=== PATIENT | male | born 1950 | race Caucasian/White ===

== ENCOUNTER → 2023-01-20 14:34 | Outpatient (BNVA) | payer MEDICARE, SELFPAY | PROVIDERS: Visit Provider Neurological Surgery | DX: M48.062 Spinal stenosis, lumbar region with neurogenic claudication (principal) | CPT/HCPCS: 99202 ==

== ENCOUNTER → 2023-04-01 13:58 | Outpatient (BNVA) | payer MEDICARE, SELFPAY | PROVIDERS: Visit Provider Neurological Surgery | DX: Z01.810 Encounter for preprocedural cardiovascular examination (principal); M48.062 Spinal stenosis, lumbar region with neurogenic claudication | CPT/HCPCS: 99212 ==

== ENCOUNTER → 2023-04-20 13:50 | Outpatient (BNV) | payer MEDICARE, SELFPAY | PROVIDERS: PCP Internal Medicine; Visit Provider Internal Medicine Cardiovascular Disease | DX: R94.31 Abnormal electrocardiogram [ECG] [EKG] (principal) | CPT/HCPCS: 93010 ==

== ENCOUNTER 2023-04-30 06:13 | Day surgery (SDC) | payer MEDICARE, SELFPAY ==
--- NOTE | 2023-04-20 | ECG_ITS ---
Test Reason : PREOP Blood Pressure : / mmHG Vent. Rate : 075 BPM Atrial Rate : 075 BPM P-R Int : 222 ms QRS Dur : 098 ms QT Int : 342 ms P-R-T Axes : 032 024 268 degrees QTc Int : 381 ms Sinus rhythm with 1st degree A-V block ST & T wave abnormality, consider inferolateral ischemia Abnormal ECG No previous ECGs available Referred By: Lulú Carpio Electronically Signed By:ABDI CURTIS MD
[2023-04-20 12:42] VITALS: BP 134/76; PULSE 77; RESP 18; O2SAT 98; BMI 30.7
--- NOTE | 2023-04-20 12:59 | HO.ANESPROP2 ---
HPI - Anesthesia Eval Consult details Narrative: 73yo M for L 4-5 Decompression w/ Coflex, 04/30/23 Cardiac cleared. S/p CABG x 3 2020 Started ozempic ~6 weeks ago for DM and weight loss. Reviewed with Dr Rosales. OK to continue. No recent illness No CP/SOB with minimal activity d/t back pain FBS ~ 120 PMFSH Active Problems Active Problems: All Active Problems (Updated 04/20/23 @ 12:24 by Baylee Hinton RN) Lumbar stenosis with neurogenic claudication (Acute) Past Medical History Medical History Bilateral hip pain CAD (coronary artery disease) Carpal tunnel syndrome CKD (chronic kidney disease) Diabetes Habitual snoring HLD (hyperlipidemia) HTN (hypertension) Obesity, Class I, BMI 30.0-34.9 (see actual BMI) On beta yesenia at home Peripheral autonomic neuropathy Prostate cancer Sexual dysfunction, unspecified Trigger finger, right ring finger Vertigo Family History Family history of problems with anesthesia: No Surgical History Surgical History H/O colonoscopy History of carpal tunnel surgery of left wrist History of surgery on left wrist Hx of adenoidectomy Hx of CABG Hx of elbow surgery Hx of left knee surgery Hx of prostatectomy Hx of right knee surgery Hx of tonsillectomy History of Problems with Anesthesia: No Social History Social History Are you a primary direct care professional to a significant other at home: No Do you presently have visiting nurse or other home services: No Patient Tobacco Use Status: Never used Tobacco Meds Allergies Allergy/AdvReac Type Severity Reaction Status Date / Time dulaglutide [From Trulicity] Allergy Intermediate Nausea and Verified 04/30/23 06:46 Vomiting rosuvastatin [From Crestor] Allergy Muscle Pain Verified 04/30/23 06:47 simvastatin Allergy Muscle Pain Verified 04/30/23 06:47 Home Medications Medication Instructions Recorded Confirmed Last Taken Type metformin 1,000 mg tablet 1,000 mg PO BID 01/20/23 04/17/23 Unknown History aspirin 81 mg tablet,delayed 81 mg PO DAILY 04/17/23 04/17/23 Unknown History release atorvastatin 40 mg tablet 40 mg PO BEDTIME 04/17/23 04/20/23 Unknown History cholecalciferol (vitamin D3) 50 50 mcg PO DAILY 04/17/23 04/17/23 Unknown History mcg (2,000 unit) capsule (Vitamin D3) insulin degludec 100 unit/mL 40 unit subcut DAILY 04/17/23 04/20/23 Unknown History subcutaneous solution (Tresiba U-100 Insulin) metoprolol succinate 50 mg 50 mg PO DAILY 04/17/23 04/17/23 Unknown History tablet,extended release 24 hr semaglutide 0.25 mg or 0.5 mg (2 0.25 mg subcut QWEEK 04/20/23 04/20/23 Unknown History mg/3 mL) subcutaneous pen injector (Ozempic) Exam Exam Date and Time: April 20, 2023 125 Height,Weight and Vital Signs: Height 6 ft 3 in Weight 111.584 kg Last Vital Signs Pulse 77 04/20/23 12:42 Resp 18 04/20/23 12:42 BP 134/76 04/20/23 12:42 Pulse Ox 98 04/20/23 12:42 O2 Del Method Room Air 04/20/23 12:42 Pertinent Lab Results Pertinent Lab Results: Lab Results 04/20/23 04/20/23 04/20/23 Range/Units 13:48 13:48 13:48 WBC 6.9 (4.8-10.8) X10*3/uL RBC 4.44 L (4.60-5.80) X10*6/uL Hgb 13.4 L (14.0-18.0) g/dl Hct 39.9 L (42.0-52.0) % MCV 89.9 (80.0-98.0) fL MCH 30.2 (27.0-33.0) pg MCHC 33.6 (31.0-36.0) g/dl RDW 12.5 (11.0-16.0) % Plt Count 295 (160-400) X10*3/uL MPV 10.5 (9.4-12.4) fL Absolute Nucleated RBC 0.000 (0.0-0.012) X10*3/uL Nucleated RBC % (auto) 0.0 (0.0-0.2) /100WBC Sodium 137 (135-145) mmol/L Potassium 4.5 (3.3-5.1) mmol/L Chloride 104 (96-108) mmol/L Carbon Dioxide 26 (22-29) mmol/L Anion Gap 12 (12-20) BUN 19 H (9-16) mg/dL Creatinine 1.63 H (0.5-1.4) mg/dL Estim Creat Clear Calc 55.2 Estimated GFR 42 Random Glucose 170 H (60-115) mg/dL Estimat Average Glucose 151 mg/dL Hemoglobin A1c % 6.9 % Calcium 10.2 (8.4-10.2) mg/dL Narrative Narrative: EKG 03/2023 Vent. Rate : 075 BPM ? ? Atrial Rate : 075 BPM ?? P-R Int : 222 ms? QRS Dur : 098 ms ? ? QT Int : 342 ms ? ? ? P-R-T Axes : 032 024 268 degrees ?? QTc Int : 381 ms ? Sinus rhythm with 1st degree A-V block ST & T wave abnormality, consider inferolateral ischemia Abnormal ECG No previous ECGs available Airway Mallampati Class: III TM Dist: >3cm Neck ROM: Full Loose/Missing/Broken Teeth: No (molars crowned) Heart: RRR Lungs: CTAB Assessment and Plan Assessment Anesthesia Assessment: Anesthesia Plan Discussed and PAT Visit Final Anesthetic Review Family History of Problems with Anesthesia: No History of Problems with Anesthesia: No
[2023-04-20 14:06] LABS: Hematocrit 39.9 % (42.0-52.0); Hemoglobin 13.4 g/dl (14.0-18.0); Mean Corpuscular HGB Conc 33.6 g/dl (31.0-36.0); Mean Corpuscular Hemoglobin 30.2 pg (27.0-33.0); Mean Corpuscular Volume 89.9 fL (80.0-98.0); Mean Platelet Volume 10.5 fL (9.4-12.4); Platelet Count 295 X10*3/uL (160-400); Red Blood Count 4.44 X10*6/uL (4.60-5.80); Red Cell Distribution Width 12.5 % (11.0-16.0); White Blood Count 6.9 X10*3/uL (4.8-10.8)
[2023-04-20 14:36] LABS: Estimated Average Glucose 151 mg/dL; Hemoglobin A1c % 6.9 %
[2023-04-20 14:54] LABS: Anion Gap 12 (12-20); Blood Urea Nitrogen 19 mg/dL (9-16); Calcium 10.2 mg/dL (8.4-10.2); Carbon Dioxide 26 mmol/L (22-29); Chloride 104 mmol/L (96-108); Creatinine Clr Calc Pharmacy 55.2; Estimated Glomerular Filt Rate 42; Glucose Random 170 mg/dL (60-115); Potassium 4.5 mmol/L (3.3-5.1); Sodium 137 mmol/L (135-145)
[2023-04-30] VITALS (9 sets, daily range): BP systolic 130–174; BP diastolic 71–94; PULSE 67–77; RESP 14–18; TEMP 36.1–36.7; O2SAT 94–99
--- NOTE | ~2023-04-30 | FL_ITS ---
EXAMINATION: XR FLUOROSCOPY WITH IMAGES CLINICAL INFORMATION: L4-L5 decompression with Coflex. COMPARISON: None available. TECHNIQUE: Fluoroscopy Supervised By: Dr. Chema Coffey. Fluoroscopy Time: 0.0 minutes (less than 10 seconds). Cumulative Dose: 4.28 mGy. DAP: 0.807 Gy-cm2. Images: 3. FINDINGS: Initial lateral interoperative image of the lumbar spine demonstrates needle projecting over the posterior elements at the L4-L5 disc space level. 2 subsequent images demonstrate surgical hardware in between the L4 and L5 spinous processes. FL/FL guidance in OR IMPRESSION: Fluoroscopy guidance for lumbar spine procedure.
--- OUTSIDE RECORDS SUMMARY | 2023-04-30 06:14 | XMS_ITS | Continuity of Care Document ---
Author Name Unknown Organization [facility] Address [address] [place] [address]- Care Team Providers Care Vp Cardiovascular Service Line Name Role Phone Tony Hinton MD Primary Care Physician Encounter [facility] NBR [id number] Date(s): 04/23/21 - 05/23/[address] [address]- Allergies, Adverse Reactions, Alerts Substance Reaction Severity Status simvastatin muscle aches, fatigue Active Crestor muscle aches, fatigue Active Immunizations Given and Recorded Vaccine Date Status Refusal Reason influenza virus vaccine, live 07/06/14 Given pneumococcal 23-valent vaccine 1 06/14/12 Given influenza virus vaccine, inactivated 2 06/14/12 Gi stephon 1Admin Note: Vis 01/30/2010 2Admin Note: Vis 05/23/2010 Medications Aspirin 81, mg, By Mouth, Daily, 0, 0, 09/30/08 1:50:01, Print VIDYA Number, [id number], Constant Indicator Start Date: 09/30/08 Status: Ordered Humalog 100 u/ml subcutaneous injection See Instructions, Subcutaneous Injection, 15 minutes before or immediately after a meal Sliding scale 2-12 units based on blood sugars, # 20 mL, 0 Refills, Maintenance, 04/25/15 7:51:31, 15 minutes before or immediately after a meal; Sliding scale 2-... Start Date: 04/25/15 Stop Date: 05/25/15 Status: Ordered Lantus 100 u/ml subcutaneous solution = 100 units, Subcutaneous Infusion, Daily, 0 Refills, Maintenance, 07/02/20 17:36:00 EDT Start Date: 07/02/20 Status: Ordered lisinopril 20 mg oral tablet 20 mg, 1, tablet, By Mouth, Daily at bedtime, Refills 0, Maintenance, 07/02/20 17:38:00 EDT Start Date: 07/02/20 Status: Ordered metformin 1000 mg oral tablet 1 tablet = 1,000 mg, By Mouth, 2 times a day, # 180 tablet, 3 Refills, Maintenance, 04/17/14 15:45:22, 1 tablet By Mouth 2 times a day,x90 days Start Date: 04/17/14 Stop Date: 04/12/15 Status: Ordered One Touch Ultra 2 Glucose Meter See Instructions, # 1 each, Maintenance, to use to test blood sugars for dm 250.00, 09/01/14 12:25:51, Compound Start Date: 09/01/14 Status: Ordered One Touch Ultra Test Strips See Instructions, # 200 each, Refills 5, Tot. Refills 5, Maintenance, Use to test blood sugars up to 4x daily DX 250.02, 04/17/14 15:41:53 Start Date: 04/17/14 Status: Ordered One Touch UltraSoft Lancets See Instructions, # 600 each, Refills 2, Tot. Refills 2, Maintenance, Use to test blood sugar 3 to 6 times a day Dx: 250.00 IDDM, 09/13/14 9:50:53, Pt received One Touch Ultra 2 Meter, Compound Start Date: 09/13/14 Stop Date: 06/10/15 Status: Ordered Tylenol Extra Strength 500 mg oral powder 2 pack/packet, By Mouth, Every 6 hours, PRN as needed for pain, # 12 pack/packet, 0 Refills, Maintenance, 05/13/21 7:58:00 EDT, Powder, Partial fill upon patient request if the prescription is for a schedule II opioid drug. Start Date: 05/13/21 Status: Ordered Problem List Condition Effective Dates Status Health Status Inform ant Carpal Tunnel Syndrome(Confirmed) 06/14/12 Active CTS(Confirmed) Active CTS (carpal tunnel syndrome)(Confirmed) Active Peripheral Autonomic Neuropa thy 337.1(Confirmed) Active Diabetes mellitus without me ntion of complication, type II or unspecified type, not stated as uncontrolled(Confirmed) 06/14/12 Active Pain in shoulder(Confirmed) 11/03/11 Active Post-operative state(Confirmed) Active Pure Hypercholesterolemia(Confirmed) 06/14/12 Active Sexual dysfunction NOS(Confirmed) 02/02/12 Active Trigger finger of left hand 4th(Confirmed) Active Unspecified Essential Hypertension(Confirmed) 06/14/12 Active Vertigo(Confirmed) 12/03/12 Active Social History Social History Type Response Smoking Status Never smoker; Tobacc o user in household: No entered on: 04/16/15 Sex
--- OUTSIDE RECORDS SUMMARY | 2023-04-30 06:14 | XMS_ITS | Continuity of Care Document ---
Author Name Unknown Organization [facility] Address [address] [place] [address]- Care Team Providers Care Lamp Stack Developer Name Role Phone Tony Hinton MD Primary Care Physician [phone] Encounter [facility] Date(s): 03/29/21 - 04/28/[address] [address] [[email or web address] Allergies, Adverse Reactions, Alerts Substance Reaction Severity [...] 0, 0, 09/30/08 1:50:01, Print VIDYA Number, [id number], Constant Indicator Start Date: 09/30/08 Status: Ordered gabapentin 100 mg oral capsule 100 mg, 1, capsule, By Mouth, 3 times a day, # 90 capsule, Refills 0, Tot. Refills 0, Maintenance, 04/16/21 6:55:00 EDT, Route to Pharmacy Electronically, [id number], Partial fill upon patient request if the prescription is for a schedule I... Start Date: 04/16/21 Status: Ordered Humalog 100 u/ml subcutaneous injection [...] Date: 09/13/14 Stop Date: 06/10/15 Status: Ordered Problem List Condition Effective Dates [...]
--- OUTSIDE RECORDS SUMMARY | 2023-04-30 06:14 | XMS_ITS | Continuity of Care Document ---
Author Name Unknown Organization [facility] Address [address] [address]- Care Team Providers Care Practicing Dermatologist Name Role Phone Tony Hinton MD Primary Care Physician [phone] Encounter [facility] Date(s): 06/11/21 - 07/11/21 [facility] [address] [address]- Allergies, Adverse Reactions, Alerts Substance Reaction Severity Status simvastatin muscle aches, fatigue Active Crestor muscle aches, fatigue Active Immunizations Given and Recorded Vaccine Date Status Refusal Reason influenza virus vaccine, live 07/06/14 Given pneumococcal 23-valent vaccine 1 06/14/12 Given influenza virus vaccine, inactivated 2 06/14/12 Gi stephon 1Admin Note: Vis 01/30/2010 2Admin Note: Vis 05/23/2010 Medications amiodarone 200 mg oral tablet 200 mg, 1, tablet, By Mouth, 2 times a day, # 60 tablet, Refills 0, Tot. Refills 0, Maintenance, 06/23/21 13:52:00 EDT, Route to Pharmacy Electronically, [facility], Partial fill upon patient request if the prescription is for a schedule... Start Date: 06/23/21 Status: Ordered amLODIPine 10 mg oral tablet 1 tablet = 10 mg, By Mouth, Daily, # 30 tablet, 0 Refills, Maintenance, 06/23/21 13:53:00 EDT, Tablet, [facility], Partial fill upon patient request if the prescription is for a schedule II opioid drug., 190.5, cm, 06/23/21 11:57:00 EDT,... Start Date: 06/23/21 Status: Ordered Aspirin = 81 mg, By Mouth, Daily in AM, 0 Refills, 09/30/08 1:50:01 EST Start Date: 09/30/08 Status: Ordered gabapentin 100 mg oral capsule 200 mg, 2, capsule, By Mouth, Daily at bedtime, # 120 capsule, Refills 0, Maintenance, 06/06/21 12:13:00 EDT, Partial fill upon patient request if the prescription is for a schedule II opioid drug. Start Date: 06/06/21 Status: Ordered Humalog 100 u/ml subcutaneous injection [...] subcutaneous solution = 100 units, Subcutaneous Infusion, Daily in AM, 0 Refills, Maintenance, 07/02/20 17:36:00 EDT Start Date: 07/02/20 Status: Ordered metformin [...] Date: 09/13/14 Stop Date: 06/10/15 Status: Ordered senna 25 mg oral tablet 2 tablet = 50 mg, By Mouth, 2 times a day, 0 Refills, Maintenance, 06/06/21 11:43:00 EDT, Partial fill upon patient request if the prescription is for a schedule II opioid drug. Start Date: 06/06/21 Status: Ordered Problem List Condition Effective Dates [...]
--- OUTSIDE RECORDS SUMMARY | 2023-04-30 06:14 | XMS_ITS | Continuity of Care Document ---
Author Name Unknown Organization [facility] Address [address] [place] [address]- Care Team Providers Care Early Intervention Specialist Name Role Phone Tony Hinton MD Primary Care Physician Encounter [facility] Date(s): 10/03/22 - 11/02/[address] [id number] Allergies, Adverse Reactions, Alerts Substance Reaction Severity Status simvastatin muscle aches, fatigue Active Crestor muscle aches, fatigue Active Immunizations Given and Recorded Vaccine Date Status Refusal Reason influenza virus vaccine, live 07/06/14 Given pneumococcal 23-valent vaccine 1 06/14/12 Given influenza virus vaccine, inactivated 2 06/14/12 Gi stephon 1Admin Note: Vis 01/30/2010 2Admin Note: Vis 05/23/2010 Medications Aspirin = 81 mg, By Mouth, Daily in AM, 0 Refills, 09/30/08 1:50:01 EST Start Date: 09/30/08 Status: Ordered atorvastatin 40 mg oral tablet 1 tablet = 40 mg, By Mouth, Daily, # 90 tablet, 3 Refills, Maintenance, 04/09/21 12:13:00 EDT, Tablet, [facility], Partial fill upon patient request if the prescription is for a schedule II opioid drug., 191, cm, 04/09/21 11:40:... Start Date: 04/09/21 Status: Ordered lisinopril 5 mg oral tablet 5 mg, 1, tablet, By Mouth, Daily, # 90 tablet, Refills 3, Tot. Refills 3, Maintenance, 09/08/22 15:10:00 EST, Route to Pharmacy Electronically, [facility], Partial fill upon patient request if the prescription is for a schedule... Start Date: 09/08/22 Stop Date: 09/03/23 Status: Ordered lisinopril 5 mg oral tablet 5 mg, 1, tablet, By Mouth, Daily, for 90 days, # 90 tablet, Refills 3, Tot. Refills 3, Hard Stop 08/22/23 9:20:00 EST, 08/27/22 9:20:00 EST, Route to Pharmacy Electronically, [id number], Partial fill upon patient request if the prescription... Start Date: 08/27/22 Stop Date: 08/22/23 Status: Ordered metformin 1000 mg oral tablet 1 tablet = 1,000 mg, By Mouth, 2 times a day, # 180 tablet, 3 Refills, Maintenance, 04/17/14 15:45:22, 1 tablet By Mouth 2 times a day,x90 days Start Date: 04/17/14 Stop Date: 04/12/15 Status: Ordered metoprolol 50 mg oral tablet, extended release 50 mg, 1, tablet, By Mouth, Daily, # 90 tablet, Refills 3, Tot. Refills 3, Maintenance, 10/23/22 12:51:00 EST, Route to Pharmacy Electronically, [facility], Partial fill upon patient request if the prescription is for a schedule... Start Date: 10/23/22 Status: Ordered NovoLOG 100 units/mL injectable solution Subcutaneous Infusion, 3 times a day before meals, sliding scale as instructed by Dr Hinton pcp, 0 Refills, Maintenance, 08/05/21 15:24:00 EST, Partial fill upon patient request if the prescriptionis for a schedule II opioid drug. Start Date: 08/05/21 Status: Ordered One Touch Ultra 2 Glucose [...] opioid drug. Start Date: 06/06/21 Status: Ordered Tresiba 100 units/mL subcutaneous solution Subcutaneous Infusion, Daily, 40 units in the am, 0 Refills, Maintenance, 08/05/21 15:23:00 EST, Partial fill upon patient request if the prescription is for a schedule II opioid drug. Start Date: 08/05/21 Status: Ordered Problem List Condition Confirmation Course Effective Dates Status Health Status Informant Carpal Tunnel Syndrome Confirmed 06/14/12 Active CTS Confirmed Active CTS (carpal tunnel syndrome) Confirmed Active Peripheral Autonomic Neuropathy 337.1 Confirmed Active Diabetes mellitus without mention of complication, type II or unspecified type, not stated as uncontrolled Confirmed 06/14/12 Active Bilateral hip pain Confirmed Active Obese class I Confirmed Active Pain in shoulder Confirmed 11/03/11 Active Post-operative state Confirmed Active Pure Hypercholesterolemia Confirmed 06/14/12 Active Sexual dysfunction NOS Confirmed 02/02/12 Active Trigger finger of left hand 4th Confirmed Active Unspecified Essential Hypertension Confirmed 06/14/12 Active Vertigo Confirmed 12/03/12 Active Social History Social History Type Response Smoking Status Never smoker; Tobacc o user in household: No entered on: 04/16/15 Sex Patient Care team information Care Team Personnel Name: Carolina Shore RN Position: S RN Member Role: Primary Care Nurse Name: Tony Hinton MD Position: S Physician (General Medicine) Member Role: PCP Address: Address: [address] [place] [id number] Name: Ese Whaley RN Position: S RN Supv Member Role: Primary Care Nurse Name: Meenakshi Baca RN Position: S RN Supv Member Role: Primary Care Nurse Name: Opal Obrien RN Position: S RN Member Role: Primary Care Nurse Name: Paris Sanchez RN Position: [facility] RN Supv Member Role: Primary Care Nurse Name: Estephania Ruvalcaba Position: [facility] Outreach Member Role: Lifetime Consulting Physician Name: Lulú Hewitt RN Position: [facility] RN Member Role: Primary Care Nurse Name: Poornima Sanchez RN Position: [facility] RN Member Role: Primary Care Nurse Care Team Related Persons Name: MIC GREEN Address: [address] [address]
--- OUTSIDE RECORDS SUMMARY | 2023-04-30 06:14 | XMS_ITS | Continuity of Care Document ---
Author Name Unknown Organization [facility] [place] Address [address] [place] [address]- Care Team Providers Care Banking Consultant Name Role Phone Tony Hinton MD Primary Care Physician Encounter [facility] N[facility] [id number] Date(s): 08/19/21 - 09/18/[address] [address]- Attending Physician: Keli Chambers Admitting Physician: Keli Chambers Referring Physician: AdmtrKeli Allergies, Adverse Reactions, Alerts Substance Reaction Severity [...] 1:50:01 EST Start Date: 09/30/08 Status: Ordered metformin 1000 mg oral tablet [...]
--- OUTSIDE RECORDS SUMMARY | 2023-04-30 06:14 | XMS_ITS | Continuity of Care Document ---
Author Name Unknown Organization [facility] Address [address] [place] [address]- Care Team Providers Care Senior Software Developer Name Role Phone Tony Hinton MD Primary Care Physician Encounter [facility] Date(s): 05/08/21 - 06/07/[address] [address] Allergies, Adverse Reactions, Alerts Substance Reaction [...] Date: 04/17/14 Stop Date: 04/12/15 Status: Ordered nitroglycerin 0.4 mg sublingual tablet 1 tablet = 0.4 mg, Sublingual, Every 5 minutes, PRN as needed for chest pain, not to exceed 3 doses/15 min--if pain persists, seek medical attention, # 25 tablet, 0 Refills, Maintenance, 06/06/21 11:58:00 EDT, Tablet, Partial fill upon patient request... Start Date: 06/06/21 Status: Ordered One Touch Ultra 2 Glucose [...] opioid drug. Start Date: 06/06/21 Status: Ordered Tylenol Extra Strength 500 mg [...]
--- OUTSIDE RECORDS SUMMARY | 2023-04-30 06:14 | XMS_ITS | Continuity of Care Document ---
Author Name Unknown Organization [facility] Address [address] [place] [address]- Care Team Providers Care Culinary Director Name Role Phone Tony Hinton MD Primary Care Physician [phone] Encounter [facility] NBR [id number] Date(s): 04/15/21 - 04/16/[address] [address]- Discharge Disposition: A-D/C Walkout Attending Physician: Doug Garza MD Admitting Physician: Doug Garza MD Referring Physician: Not on Staff, Referring MD Allergies, Adverse Reactions, Alerts Substance Reaction Severity Status simvastatin muscle aches, fatigue Active Crestor muscle aches, fatigue Active Immunizations Given and Recorded Vaccine Date Status Refusal Reason influenza virus vaccine, live 07/06/14 Given pneumococcal 23-valent vaccine 1 06/14/12 Given influenza virus vaccine, inactivated 2 06/14/12 Gi stephon 1Admin Note: Vis 01/30/2010 2Admin Note: Vis 05/23/2010 Medications acetaminophen 500 mg oral tablet 2 tablet = 1,000 mg, By Mouth, Every 6 hours, PRN for pain, for 10 days, # 100 tablet, 0 Refills, Acute 04/26/21 6:55:00 EDT, 04/16/21 6:55:00 EDT, Tablet, [facility], Partial fill upon patient request if the prescription is for a schedule... Start Date: 04/16/21 Stop Date: 04/26/21 Status: Ordered Aspirin 81, mg, By Mouth, Daily, 0, 0, 09/30/08 1:50:01, Print VIDYA Number, [id number], Constant Indicator Start Date: 09/30/08 Status: Ordered gabapentin 100 mg oral capsule 100 mg, 1, capsule, By Mouth, 3 times a day, # 90 capsule, Refills 0, Tot. Refills 0, Maintenance, 04/16/21 6:55:00 EDT, Route to Pharmacy Electronically, [facility], Partial fill upon patient request if the [...] Date: 04/25/15 Stop Date: 05/25/15 Status: Ordered ibuprofen 600 mg oral tablet 600 mg, 1, tablet, By Mouth, Every 8 hours, PRN, for 10 days, # 50 tablet, Refills 0, Tot. Refills 0, Acute 04/26/21 6:55:00 EDT, as needed for pain, 04/16/21 6:55:00 EDT, Route to Pharmacy Electronically, [facility], Partial fill upon sil... Start Date: 04/16/21 Stop Date: 04/26/21 Status: Ordered Lantus 100 u/ml subcutaneous solution = 100 units, Subcutaneous Infusion, Daily, 0 Refills, Maintenance, 07/02/20 17:36:00 EDT Start Date: 07/02/20 Status: Ordered lidocaine 5% topical cream 1 application, Topically, 3 times a day, for 5 days, # 30 Gm, 0 Refills, Acute 04/21/21 6:55:00 EDT, 04/16/21 6:55:00 EDT, Cream, [facility], Partial fill upon patient request if the prescription is for a schedule II opioid drug., 1 applica... Start Date: 04/16/21 Stop Date: 04/21/21 Status: Ordered lisinopril 20 mg oral tablet [...] Date: 09/13/14 Stop Date: 06/10/15 Status: Ordered oxyCODONE 5 mg oral tablet 5 mg, 1, tablet, By Mouth, Every 6 hours, PRN, for 3 days, # 10 tablet, Refills 0, Tot. Refills 0, Acute 04/19/21 6:55:00 EDT, as needed for pain, 04/16/21 6:55:00 EDT, Route to Pharmacy Electronically, [facility], Partial fill upon patient... Start Date: 04/16/21 Stop Date: 04/19/21 Status: Ordered Problem List Condition Effective Dates [...] Essential Hypertension(Confirmed) 06/14/12 Active Vertigo(Confirmed) 12/03/12 Active Results Radiology Reports * Exam Date Time Procedure Performing Provider Status 04/15/21 9:53 PM Ribs W/ PA Chest Left Anu Osuna; Ximena cox south (Verified) Notes: (Ribs W/ PA Chest Left) Reason For Exam: Pain RESULT: Ribs W/ PA Chest Left Ribs W/ PA Chest Left Hx of Present Illness: slipped and fell landing on left side. Now with left sided chest pain.; Reason: Pain; Clinical Question(s): Fracture COMPARISON: None PA view of chest along with 4 views of the left ribs FINDINGS: LINES AND TUBES: None. LUNGS AND PLEURA: Lung volumes are low with minor atelectatic changes at the lung bases. No effusion or pneumothorax. HEART, MEDIASTINUM AND ROBERT: Normal. BONES: There are nondisplaced fractures of the left fourth and fifth ribs seen along their lateral aspectsonly on a single view. SOFT TISSUES: Normal. IMPRESSION: Nondisplaced fractures of the left lateral fourth and fifth ribs seen only on one view. No pneumothorax or other acute intrathoracic pathology. Low lung volumes with atelectatic changes at the lung bases. WSN: [id number] Ordering Physician: Carola Lemons Dictated By: Santo Samayoa MD Dictated Date/Time: 04/15/21 10:08 p Reviewed By: Santo Samayoa MD Signed By: Santo Samayoa MD Signed Date/Time: 04/15/21 10:08 pm Transcribed By: TASNEEM Transcribed Date/Time: 04/15/21 10:05 pm Vital Signs Most recent to oldest [Reference Range]: 1 Height 191 cm (04/15/21 9:23 PM) Weight 111.9 kg (04/15/21 9:23 PM) Oxygen Saturation [94-100 %] 100 % (04/15/21 9:23 PM) Pulse Rate [55-90 bpm] 76 bpm (04/15/21 9:23 PM) Blood Pressure [90-138/55-84 mm Hg] 174/ 65mm Hg *H* (04/15/21 9:23 PM) Respiratory Rate [16-30 br/min] 20 br/mi n (04/15/21 9:23 PM) Temperature [96.8-100.4 DegF] 97.8 DegF (04/15/21 9:23 PM) Mode of Delivery (Oxygen) Room air (04/15/21 9:23 PM) Blood pressure sites Arm, right (04/15/21 9:23 PM) Temperature Route Temporal (04/15/21 9:23 PM) Dry Weight 111.9 kg (04/15/21 9:23 PM) Weight Obtained Via Standing scale (04/15/21 9:23 PM) Dry Weight Obtained Via 97.8 (04/15/21 9:23 PM) Social History Social History Type Response Smoking Status Never smoker; Tobacc o user in household: No entered on: 04/16/15 Sex
--- OUTSIDE RECORDS SUMMARY | 2023-04-30 06:14 | XMS_ITS | Continuity of Care Document ---
Author Name Unknown Organization [facility] Address [address] [place] [address]- Care Team Providers Care Park Naturalist Name Role Phone Tony Hinton MD Primary Care Physician Encounter [facility] Date(s): 05/13/21 - 05/13/[address] [address] Discharge Disposition: A-D/C Home Attending Physician: Iftikhar Chao MD Admitting Physician: Iftikhar Chao MD Referring Physician: Iftikhar Chao MD Allergies, Adverse Reactions, Alerts Substance Reaction [...] 0, 0, 09/30/08 1:50:01, Print VIDYA Number, [id number], Constant Indicator Start Date: 09/30/08 Status: Ordered [...] Essential Hypertension(Confirmed) 06/14/12 Active Vertigo(Confirmed) 12/03/12 Active Vital Signs Most recent to oldest [Reference Range]: 1 2 3 Height 190.5 cm (05/13/21 8:55 AM) 190.5 cm (05/13/21 8:48 AM) Weight 113 kg (05/13/21 8:55 AM) 113 kg (05/13/21 8:48 AM) Oxygen Saturation [94-100 %] 99 % (05/13/21 1:45 PM) 98 % (05/13/21 1:30 PM) 99 % (05/13/21 1:00 PM) Pulse Rate [55-90 bpm] 64 bpm (05/13/21 8:55 AM) Body Mass Index [18.5-24.99] 31.14 *>HHI* (05/13/21 8:55 AM) Blood Pressure [90-138/55-84 mm Hg] 159/67mm Hg *H* (05/13/21 1:45 PM) 148/59mm Hg *H* (05/13/21 1:30 PM) 138/69mm Hg (05/13/21 1:00 PM) Respiratory Rate [16-30 br/min] 20 br/min (05/13/21 1:45 PM) 19 br/min (05/13/21 1:30 PM) 22 br/min (05/13/21 1:00 PM) Temperature [96.8-100.4 DegF] 98.3 DegF (05/13/21 11:30 AM) 98.0 DegF (05/13/21 8:55 AM) Mode of Delivery (Oxygen) Room air (05/13/21 8:55 AM) Blood pressure sites Arm, left (05/13/21 1:45 PM) Arm, left (05/13/21 1:30 PM) Arm, left (05/13/21 1:00 PM) Temperature Route Temporal (05/13/21 8:55 AM) Weight Obtained Via Standing scale (05/13/21 8:55 AM) Social History Social History Type Response Smoking Status Never smoker; Tobacc o user in household: No entered on: 04/16/15 Sex
--- OUTSIDE RECORDS SUMMARY | 2023-04-30 06:14 | XMS_ITS | Continuity of Care Document ---
Author Name Unknown Organization [facility] Address [address] [place] [address]- Care Team Providers Care Track Broom Operator Name Role Phone Tony Hinton MD Primary Care Physician [phone] Encounter [facility] NBR [id number] Date(s): 02/28/22 - 06/22/[address] [address] Attending Physician: Brittnee Alfaro NP Referring Physician: Tony Hinton MD Allergies, Adverse Reactions, Alerts Substance Reaction [...] 3 Refills, Maintenance, 04/09/21 12:13:00 EDT, Tablet, [facility], Partial fill upon patient request if the prescription is for a schedule II opioid drug., 191, cm, 04/09/21 11:40:... Start Date: 04/09/21 Status: Ordered clopidogrel 75 mg oral tablet 75 mg, 1, tablet, By Mouth, Daily, # 90 tablet, Refills 3, Tot. Refills 3, Maintenance, 08/19/21 10:23:00 EST, Route to Pharmacy Electronically, [facility], Partial fill upon patient request if the prescription is for a schedule... Start Date: 08/19/21 Status: Ordered lisinopril 5 mg oral tablet 5 mg, 1, tablet, By Mouth, Daily, # 90 tablet, Refills 3, Tot. Refills 3, Maintenance, 11/06/21 16:51:00 EST, Route to Pharmacy Electronically, [facility], Partial fill upon patient request if the prescription is for a schedule... Start Date: 11/06/21 Stop Date: 11/01/22 Status: Ordered metformin 1000 mg oral tablet 1 tablet = 1,000 mg, By Mouth, 2 times a day, # 180 tablet, 3 Refills, Maintenance, 04/17/14 15:45:22, 1 tablet By Mouth 2 times a day,x90 days Start Date: 04/17/14 Stop Date: 04/12/15 Status: Ordered metoprolol 50 mg oral tablet 50 mg, 1, tablet, By Mouth, 2 times a day, # 90 tablet, Refills 6, Tot. Refills 6, Maintenance, 09/23/21 16:56:00 EST, Route to Pharmacy Electronically, [facility] 0341, Partial fill upon patient request if the prescription is for a schedule II... 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 Diabetes mellitus without me ntion of complication, type II or unspecified type, not stated as uncontrolled(Confirmed) 06/14/12 Active Obese class I(Confirmed) Active Pain in shoulder(Confirmed) 11/03/11 Active Post-operative state(Confirmed) Active Pure Hypercholesterolemia(Confirmed) 06/14/12 Active Sexual dysfunction NOS(Confirmed) 02/02/12 Active Trigger finger of left hand 4th(Confirmed) Active Unspecified Essential Hypertension(Confirmed) 06/14/12 Active Vertigo(Confirmed) 12/03/12 Active Social History Social History Type Response Smoking Status Never smoker; Tobacc o user in household: No entered on: 04/16/15 Sex Care Team Personnel Name: Tony Hinton MD Address: [address] [place] [address]
--- OUTSIDE RECORDS SUMMARY | 2023-04-30 06:14 | XMS_ITS | Continuity of Care Document ---
Author Name Unknown Organization [facility] Address [address] [place] [address]- Care Team Providers Care Golf Technician Name Role Phone Tony Hinton MD Primary Care Physician Encounter [facility] Date(s): 06/13/21 - 07/13/21 [facility] [address] [place], [place] [address] Attending Physician: Admtr, Keli Admitting Physician: AdmtrKeli Referring Physician: Admtr, Ar8 Allergies, Adverse Reactions, Alerts Substance Reaction Severity [...] 06/23/21 13:52:00 EDT, Route to Pharmacy Electronically, [facility], Partial fill upon patient request if the prescription is for a schedule... Start Date: 06/23/21 Status: Ordered amLODIPine 10 mg oral tablet 1 tablet = 10 mg, By Mouth, Daily, # 30 tablet, 0 Refills, Maintenance, 06/23/21 13:53:00 EDT, Tablet, [facility], Partial fill upon patient request [...]
--- OUTSIDE RECORDS SUMMARY | 2023-04-30 06:15 | XMS_ITS | Continuity of Care Document ---
Author Name Unknown Organization [facility] Address [address] [address]- Care Team Providers Care Account Resolution Expert Name Role Phone Tony Hinton MD Primary Care Physician [phone] Encounter [facility] Date(s): 07/05/21 - 08/04/21 [facility] [address] [address]- Allergies, Adverse Reactions, Alerts Substance Reaction Severity [...] 06/23/21 13:52:00 EDT, Route to Pharmacy Electronically, [facility], Partial fill upon patient request if the prescription is for a schedule... Start Date: 06/23/21 Status: Ordered amLODIPine 10 mg oral tablet 1 tablet = 10 mg, By Mouth, Daily, # 30 tablet, 0 Refills, Maintenance, 06/23/21 13:53:00 EDT, Tablet, [facility], Partial fill upon patient [...]
--- OUTSIDE RECORDS SUMMARY | 2023-04-30 06:15 | XMS_ITS | Continuity of Care Document ---
Author Name Unknown Organization [facility] Address [address] [address]- Care Team Providers Care Bookkeeper Receptionist Name Role Phone Tony Hinton MD Primary Care Physician Encounter [facility] Date(s): 05/16/21 - 06/15/21 [facility] [address] [address] Attending Physician: Keli Chambers Admitting Physician: Keli Chambers Referring Physician: Keli Chambers Allergies, Adverse Reactions, Alerts Substance Reaction Severity [...]
--- OUTSIDE RECORDS SUMMARY | 2023-04-30 06:15 | XMS_ITS | Continuity of Care Document ---
Author Name Unknown Organization [facility] [place] Address [address] [place] [address]- Care Team Providers Care Clam Sorter Name Role Phone Tony Hinton MD Primary Care Physician Encounter [facility] NBR [id number] Date(s): 06/24/21 - 09/18/[address] [address]- Attending Physician: Meryl MORGAN, Frankie Christianson Referring Physician: Krishna Willett MD Allergies, Adverse Reactions, Alerts Substance Reaction [...]
--- OUTSIDE RECORDS SUMMARY | 2023-04-30 06:15 | XMS_ITS | Continuity of Care Document ---
Author Name Unknown Organization [facility] [place] Address [address] [place] [address]- Care Team Providers Care Dry Kiln Feeder Name Role Phone Tony Hinton MD Primary Care Physician [phone] [facility] [id number] Date(s): 06/25/21 - 08/30/[address] [address]- Attending Physician: Meryl MORGAN, Frankie Christianson Referring Physician: Tony Hinton MD Allergies, Adverse [...]
--- OUTSIDE RECORDS SUMMARY | 2023-04-30 06:15 | XMS_ITS | Continuity of Care Document ---
Author Name Unknown Organization [facility] Address [address] [place] [address]- Care Team Providers Care Snout Puller Name Role Phone Tony Hinton MD Primary Care Physician Encounter [facility] Date(s): 02/03/22 - 03/05/[address] [address] Allergies, Adverse Reactions, Alerts Substance Reaction [...]
--- OUTSIDE RECORDS SUMMARY | 2023-04-30 06:15 | XMS_ITS | Continuity of Care Document ---
Author Name Unknown Organization [facility] Address [address] [place] [address]- Care Team Providers Care Gas Leak Inspector Name Role Phone Tony Hinton MD Primary Care Physician Encounter [facility] NBR [id number] Date(s): 01/19/23 - 04/08/[address] [address] Attending Physician: Brittnee Alfaro NP Referring Physician: [...] 3 Refills, Maintenance, 04/09/21 12:13:00 EDT, Tablet, [facility], Partial fill upon patient request if the prescription is for a schedule II opioid drug., 191, cm, 04/09/21 11:40:... Start Date: 04/09/21 Status: Ordered isosorbide mononitrate 60 mg oral tablet, extended release 1 tablet = 60 mg, By Mouth, Daily in AM, # 90 tablet, 0 Refills, Maintenance, 03/02/23 15:07:00 EDT, ER Tablet, [facility] 2386, Partial fill upon patient request if the prescription is for a schedule II opioid drug., 190.5, cm, 03/02/23 14:42:0... Start Date: 03/02/23 Status: Ordered lisinopril 5 mg oral tablet 5 mg, 1, tablet, By Mouth, Daily, # 90 tablet, Refills 3, Tot. Refills 3, Maintenance, 09/08/22 15:10:00 EST, Route to Pharmacy Electronically, [facility], Partial fill upon patient request if the prescription is for a schedule... Start Date: 09/08/22 Stop Date: 09/03/23 Status: Ordered metformin 1000 mg oral tablet [...] 10/23/22 12:51:00 EST, Route to Pharmacy Electronically, [facility], Partial fill upon patient request [...] opioid drug. Start Date: 08/05/21 Status: Ordered Vitamin D3 2000 intl units oral capsule 1 capsule = 50 mcg, By Mouth, Daily, # 30 capsule, 5 Refills, Maintenance, 01/26/23 9:26:00 EDT, Capsule, [facility] 2388, Partial fill upon patient request if the prescription is for a schedule II opioid drug., 190.5, cm, 01/23/23 10:58:00 EDT,... Start Date: 01/26/23 Status: Ordered Problem List Condition Confirmation Course [...] Care team information Care Team Personnel Name: Tony Hinton MD Position: [facility] Physician - Pediatrics Member Role: PCP Address: Address: [address] [place] [address]- Name: Ese Whaley RN Position: [facility] RN Supv Member Role: Primary Care Nurse Name: Meenakshi Baca RN Position: [facility] RN Supv Member Role: Primary Care Nurse Name: Opal Obrien RN Position: [facility] RN Member Role: Primary Care Nurse Name: Paris Sanchez RN Position: [facility] RN Supv Member Role: Primary Care Nurse Name: Estephania Ruvalcaba Position: [facility] Outreach Member Role: Lifetime Consulting Physician Name: Lulú Hewitt RN Position: [facility] RN Member Role: Primary Care Nurse Name: Poornima Sanchez RN Position: [facility] RN Member Role: Primary Care Nurse Care Team Related Persons Name: MIC GREEN Address: [address] [address]
--- OUTSIDE RECORDS SUMMARY | 2023-04-30 06:15 | XMS_ITS | Continuity of Care Document ---
Author Name Unknown Organization [facility] Address [address] [address]- Care Team Providers Care Microstrategy Architect Name Role Phone Jamaal MORGAN, Tony Primary Care Physician Encounter [facility] Date(s): 07/03/21 - 07/10/21 [facility] [address] [address]- Attending Physician: Krishna Willett MD Referring Physician: Meryl MORGAN, Frankie Christianson Allergies, Adverse Reactions, Alerts Substance Reaction Severity [...] 06/23/21 13:52:00 EDT, Route to Pharmacy Electronically, [facility], Partial fill upon patient request if the prescription is for a schedule... Start Date: 06/23/21 Status: Ordered amLODIPine 10 mg oral tablet 1 tablet = 10 mg, By Mouth, Daily, # 30 tablet, 0 Refills, Maintenance, 06/23/21 13:53:00 EDT, Tablet, [facility], Partial fill upon patient request if the prescription is for a schedule II opioid drug., 190.5, cm, 06/23/21 11:57:00 EDT,... Start Date: 06/23/21 Status: Ordered Aspirin = 81 mg, By Mouth, Daily in AM, 0 Refills, 09/30/08 1:50:01 EST Start Date: 09/30/08 Status: Ordered clopidogrel 75 mg oral tablet 75 mg, 1, tablet, By Mouth, Daily, # 30 tablet, Refills 0, Tot. Refills 0, Maintenance, 06/23/21 13:52:00 EDT, Route to Pharmacy Electronically, [facility], Partial fill upon patient request if the prescription is for a schedule II opioi... Start Date: 06/23/21 Status: Ordered gabapentin 100 mg oral capsule [...] Status: Ordered metoprolol 50 mg oral tablet 25 mg, 0.5, tablet, By Mouth, 2 times a day, # 60 tablet, Refills 0, Tot. Refills 0, Maintenance, 06/23/21 13:52:00 EDT, Route to Pharmacy Electronically, [facility] 3, Partial fill upon patient request if the prescription is for a schedul... Start Date: 06/23/21 Status: Ordered One Touch Ultra 2 Glucose [...] recent to oldest [Reference Range]: 1 Height 190.50 cm (07/03/21 9:11 AM) Weight 103.6 kg (07/03/21 9:11 AM) Oxygen Saturation [94-100 %] 99 % (07/03/21 9:11 AM) Pulse Rate [55-90 bpm] 74 bpm (07/03/21 9:11 AM) Body Mass Index [18.5-24.99] 28.55 *H* (07/03/21 9:11 AM) Blood Pressure [90-138/55-84 mm Hg] 108/ 62mm Hg (07/03/21 9:11 AM) Respiratory Rate [16-30 br/min] 18 br/mi n (07/03/21 9:11 AM) Temperature [96.8-100.4 DegF] 98.2 DegF (07/03/21 9:11 AM) Mode of Delivery (Oxygen) Room air (07/03/21 9:11 AM) Blood pressure sites Arm, right (07/03/21 9:11 AM) Temperature Route Oral (07/03/21 9:11 AM) Weight Obtained Via Patient/family state d (07/03/21 9:11 AM) Social History Social History Type Response Smoking Status Never smoker; Tobacc o user in household: No entered on: 04/16/15 Sex
--- OUTSIDE RECORDS SUMMARY | 2023-04-30 06:15 | XMS_ITS | Continuity of Care Document ---
Author Name Unknown Organization [facility] Address [address] [address]- Care Team Providers Care Taxicab Dispatcher Name Role Phone Tony Hinton MD Primary Care Physician Encounter [facility] Date(s): 06/12/21 - 07/12/21 [facility] [address] [address]- Allergies, Adverse Reactions, Alerts Substance Reaction Severity [...] 06/23/21 13:52:00 EDT, Route to Pharmacy Electronically, [facility], Partial fill upon patient request if the prescription is for a schedule... Start Date: 06/23/21 Status: Ordered amLODIPine 10 mg oral tablet 1 tablet = 10 mg, By Mouth, Daily, # 30 tablet, 0 Refills, Maintenance, 06/23/21 13:53:00 EDT, Tablet, [facility], Partial fill upon patient [...]
--- OUTSIDE RECORDS SUMMARY | 2023-04-30 06:15 | XMS_ITS | Continuity of Care Document ---
Author Name Unknown Organization [facility] Address [address] [place] [address]- Care Team Providers Care Chip Bin Operator Name Role Phone Tony Hinton MD Primary Care Physician Encounter [facility] Date(s): 06/24/21 - 07/24/[address] [address] Allergies, Adverse Reactions, Alerts Substance Reaction [...] 06/23/21 13:52:00 EDT, Route to Pharmacy Electronically, [facility], Partial fill upon patient request if the prescription is for a schedule... Start Date: 06/23/21 Status: Ordered amLODIPine 10 mg oral tablet 1 tablet = 10 mg, By Mouth, Daily, # 30 tablet, 0 Refills, Maintenance, 06/23/21 13:53:00 EDT, Tablet, [facility], Partial fill upon patient [...]
--- OUTSIDE RECORDS SUMMARY | 2023-04-30 06:15 | XMS_ITS | Continuity of Care Document ---
Author Name Unknown Organization [facility] Address [address] [address]- Care Team Providers Care Technician Helper Instrument Name Role Phone Tony Hinton MD Primary Care Physician Encounter [facility] Date(s): 06/11/21 - 07/11/21 [facility] [address] [address]- Allergies, Adverse Reactions, Alerts Substance Reaction Severity [...] 06/23/21 13:52:00 EDT, Route to Pharmacy Electronically, [facility], Partial fill upon patient request if the prescription is for a schedule... Start Date: 06/23/21 Status: Ordered amLODIPine 10 mg oral tablet 1 tablet = 10 mg, By Mouth, Daily, # 30 tablet, 0 Refills, Maintenance, 06/23/21 13:53:00 EDT, Tablet, [facility], Partial fill upon patient [...]
--- OUTSIDE RECORDS SUMMARY | 2023-04-30 06:15 | XMS_ITS | Continuity of Care Document ---
Author Name Unknown Organization [facility] Address [address] [address]- Care Team Providers Care Loan Manager Name Role Phone Tony Hinton MD Primary Care Physician [phone] Encounter [facility] Date(s): 02/28/22 - 03/30/22 [place] [id number] [address]- Attending Physician: Keli Chambers Admitting Physician: Keli [...]
--- OUTSIDE RECORDS SUMMARY | 2023-04-30 06:15 | XMS_ITS | Continuity of Care Document ---
Author Name Unknown Organization [facility] Address [address] [address]- Care Team Providers Care Sanitary Inspector Name Role Phone Tony Hinton MD Primary Care Physician Encounter [facility] Date(s): 01/16/23 - 02/15/[address] [address] [place] Allergies, Adverse Reactions, Alerts Substance Reaction Severity [...] 08/27/22 9:20:00 EST, Route to Pharmacy Electronically, [facility], Partial fill upon patient request if the [...] 5 Refills, Maintenance, 01/26/23 9:26:00 EDT, Capsule, [facility], Partial fill upon patient request if the [...] Team Personnel Name: Tony Hinton MD Position: [facility] Outreach Member Role: PCP Address: Address: [address] [place], [place] [address], [place] [address]- Name: Ese Whaley RN Position: S RN Supv Member Role: Primary Care Nurse Name: Meenakshi Baca RN Position: S RN Supv Member Role: Primary Care Nurse Name: Opal Obrien RN Position: S RN Member Role: Primary Care Nurse Name: Paris Sanchez RN Position: [facility] RN Supv Member Role: Primary Care Nurse Name: Estephania Ruvalcaba Position: [facility] Outreach Member Role: Lifetime Consulting Physician Name: Lulú Hewitt RN Position: [facility] RN Member Role: Primary Care Nurse Name: Poornima Sanchez RN Position: [facility] RN Member Role: Primary Care Nurse Care Team Related Persons Name: MIC GREEN Address: [address] [address]
--- OUTSIDE RECORDS SUMMARY | 2023-04-30 06:15 | XMS_ITS | Continuity of Care Document ---
Author Name Unknown Organization [facility] ter Address [address] [place] [address]- Care Team Providers Care Sludge Control Attendant Name Role Phone Tony Hinton MD Primary Care Physician [phone] [id number] Date[facility] 06/17/21 - 06/23/[address] [address] Discharge Disposition: A-D/C Home Attending Physician: Krishna Willett MD Admitting Physician: Krishna Willett MD Referring Physician: Frankie Sheth MD Allergies, Adverse Reactions, Alerts Substance Reaction Severity Status simvastatin muscle aches, fatigue Active Crestor muscle aches, fatigue Active Immunizations Given and Recorded Vaccine Date Status Refusal Reason influenza virus vaccine, live 07/06/14 Given pneumococcal 23-valent vaccine 1 06/14/12 Given influenza virus vaccine, inactivated 2 06/14/12 Gi stephon 1Admin Note: Vis 01/30/2010 2Admin Note: Vis 05/23/2010 Medications acetaminophen 325 mg oral tablet 975 mg, Tablet, By Mouth, 06/23/21 12:00:00 EDT, Stop date 06/23/21 12:00:00 EDT Start Date: 06/23/21 Stop Date: 06/23/21 Status: Completed acetaminophen 325 mg oral tablet 975 mg, 3, tablet, By Mouth, Every 6 hours, for 3 days, # 36 tablet, Refills 0, Tot. Refills 0, Acute 06/26/21 13:51:00 EDT, 06/23/21 13:51:00 EDT, Route to Pharmacy Electronically, [facility], Partial fill upon patient request if the pr... Start Date: 06/23/21 Stop Date: 06/26/21 Status: Ordered amiodarone 200 mg oral tablet 200 mg, 1, tablet, By Mouth, 2 times a day, # 60 tablet, Refills 0, Tot. Refills 0, Maintenance, 06/23/21 13:52:00 EDT, Route to Pharmacy Electronically, [facility], Partial fill upon patient request if the prescription is for a schedule... Start Date: 06/23/21 Status: Ordered amLODIPine 10 mg oral tablet 1 tablet = 10 mg, By Mouth, Daily, # 30 tablet, 0 Refills, Maintenance, 06/23/21 13:53:00 EDT, Tablet, [facility], Partial fill upon patient request [...] 06/23/21 13:52:00 EDT, Route to Pharmacy Electronically, [facility], Partial fill upon patient request [...] scale 2-... Start Date: 04/25/15 Stop Date: 8/28/15 Status: Ordered Lantus 100 u/ml subcutaneous solution [...] 06/23/21 13:52:00 EDT, Route to Pharmacy Electronically, [facility], Partial fill upon patient request if the prescription is for a schedule... Start Date: 06/23/21 Status: Ordered One Touch [...] Exam Date Time Procedure Performing Provider Status 06/21/21 9:12 AM Chest Portable Keli Pal; Auth (Verified) Notes: (Chest Portable) Reason For Exam: chest tube removal;Tube Placement RESULT: Chest Portable Chest Portable INDICATION: Chest tube removal, assess for pneumothorax. COMPARISON: Multiple prior chest radiographs, most recent 06/19/2021. FINDINGS: LINES AND TUBES: None. LUNGS AND PLEURA: Low lung volumes with mild basilar atelectasis, left greater than right. Lungs are otherwise clear with no consolidation. Decreased pulmonary vascular congestion, consistent with resolving pulmonary edema. No large pleural effusion. No pneumothorax. HEART, MEDIASTINUM AND ROBERT: Heart is normal in size. Normal upper mediastinal and hilar contour. BONES AND SOFT TISSUES: Sternotomy wires unchanged. Mild degeneration of the shoulder and acromioclavicular joints.. IMPRESSION: No evidence of pneumothorax or other acute abnormality. Persistent low lung volumes with basilar atelectasis, left greater than right. Resolving pulmonary edema. I have personally reviewed the images and I agree with this report. WSN: [id number] Ordering Physician: Frankie Garcia Dictated By: Stevie Mcneill MD Dictated Date/Time: 06/21/21 12:50 p Reviewed By: Nav Prasad MD Signed By: Nav Prasad MD Signed Date/Time: 06/21/21 12:55 pm Transcribed By: TASNEEM Transcribed Date/Time: 06/21/21 10:13 am * Exam Date Time Procedure Performing Provider Status 06/19/21 10:42 AM Chest Portable Carlozabraham Aneudy (Verified) Notes: (Chest Portable) Reason For Exam: S/P Cardiac Surgery RESULT: Chest Portable Chest Portable CLINICAL INDICATION: Reason: S P Cardiac Surgery COMPARISON: Prior radiographs, most recently 06/18/2021. FINDINGS: Right internal jugular [place]Carol catheter is seen with tip directed into the left main pulmonary artery. There is a chest tube at the left lung base as well as a mediastinal drain to the right of midline. Intact median sternotomy wires are seen. The cardiac silhouette is stable in size. Mediastinal contour is grossly normal. There are low lungvolumes with right basilar atelectasis. Small left pleural effusion is also seen with adjacent atelectasis. There is no pneumothorax or evidence of CHF. No acute osseous abnormality is noted. IMPRESSION: No significant change from prior. There is a small left pleural effusion with bibasilar atelectasis. WSN: [id number] Ordering Physician: Maricruz Reynoso Dictated By: Nirali Norris MD Dictated Date/Time: 06/19/21 12:09 p Reviewed By: Nirali Norris MD Signed By: Nirali Norris MD Signed Date/Time: 06/19/21 12:09 pm Transcribed By: TASNEEM Transcribed Date/Time: 06/19/21 12:08 pm * Exam Date Time Procedure Performing Provider Status 06/18/21 12:56 PM Chest Portable Paco Shelton (Verified) Notes: (Chest Portable) Reason For Exam: Shortness of Breath RESULT: Chest Portable Chest Portable AP semiupright at 12:44 PM REASON: Shortness of Breath; Clinical Question(s): Pneumothorax / Pneumothorax COMPARISON: Earlier today FINDINGS: LINES AND TUBES: No significant change in position of the right internal jugular approach [place]- Carol catheter, mediastinal drain, and left chest tube. LUNGS AND PLEURA: Low lung volumes with left basilar space opacity, not significantly changed. Possible trace left pleural effusion. No pneumothorax. HEART, MEDIASTINUM AND ROBERT: Unchanged. BONES AND SOFT TISSUES: Status post median sternotomy. IMPRESSION: No significant change. Persistent bibasilar opacity, left more than right, likely atelectasis. WSN: [id number] Ordering Physician: Estephania Vick Dictated By: Santo Chadwick MD Dictated Date/Time: 06/18/21 2:42 pm Reviewed By: Santo Chadwick MD Signed By: Santo Chadwick MD Signed Date/Time: 06/18/21 2:42 pm Transcribed By: TASNEEM Transcribed Date/Time: 06/18/21 2:41 pm * Exam Date Time Procedure Performing Provider Status 06/18/21 6:00 AM Chest Portable Nila Armstrong; Octavio h (Verified) Notes: (Chest Portable) Reason For Exam: S/P Cardiac Surgery RESULT: Chest Portable Chest Portable AP upright at 5:35 AM REASON: S P Cardiac Surgery; Clinical Question(s): Postop / Postop COMPARISON: 06/17/2021 FINDINGS: LINES AND TUBES: Endotracheal tube and enteric tube has been removed. Right internal jugular approach [place]Carol catheter with the tip projecting in the main pulmonary artery. Mediastinal drain and left chest tube in place. Multiple wires project over the patient. LUNGS AND PLEURA: Low lung volumes with mild basilar atelectasis. Lungs are otherwise clear with no definite consolidation. Possible trace bilateral pleural effusions. No pneumothorax. HEART, MEDIASTINUM AND ROBERT: Unchanged. BONES AND SOFT TISSUES: Status post median sternotomy. IMPRESSION: 1. Support structures as above. 2. Low lung volumes with bibasilar opacity, likely atelectasis. WSN: [id number] Ordering Physician: Dg Bruner Dictated By: Santo Chadwick MD Dictated Date/Time: 06/18/21 8:53 am Reviewed By: Santo Chadwick MD Signed By: aSnto Chadwick MD Signed Date/Time: 06/18/21 8:53 am Transcribed By: TASNEEM Transcribed Date/Time: 06/18/21 8:52 am * Exam Date Time Procedure Performing Provider Status 06/17/21 3:09 PM Chest Portable Stefanie Hatfield; Irene (V erified) Notes: (Chest Portable) Reason For Exam: Postop RESULT: Chest Portable Chest Portable INDICATION: Postop CABG with [place]Carol catheter placement. COMPARISON: chest radiograph 06/13/2021. FINDINGS: LINES AND TUBES: [place] catheter tip is visualized projecting towards the main pulmonary artery. NG tube is visualized with tip past the GE junction and within the stomach. Mediastinal drain and left chest tube in place. Tip of the endotracheal tube projects 3.7 cm above the ankit. Multiple wires project over the patient. LUNGS AND PLEURA: Low lung volumes with mild basilar atelectasis. Lungs are otherwise clear with no consolidation. No pleural effusion. No pneumothorax. HEART, MEDIASTINUM AND ROBERT: Heart is normal in size. Mediastinal widening with loss of hilar contour, most likely postoperative changes and/or atelectasis. No evidence of pneumomediastinum. BONES AND SOFT TISSUES: Status post medial sternotomy. IMPRESSION: Postoperative changes with bilateral atelectasis. Support structures as above. I have personally reviewed the images and I agree with this report. WSN: [id number] Ordering Physician: Dg Bruner Dictated By: Stevie Mcneill MD Dictated Date/Time: 06/17/21 3:59 pm Reviewed By: Santo Chadwick MD Signed By: Santo Chadwick MD Signed Date/Time: 06/17/21 4:04 pm Transcribed By: TASNEEM Transcribed Date/Time: 06/17/21 3:46 pm * Exam Date Time Procedure Performing Provider Status 06/17/21 3:09 PM Chest Portable Alessandro Hatfield (V erified) Notes: (Chest Portable) Reason For Exam: S/P Cardiac Surgery RESULT: Chest Portable Chest Portable AP supine at 2:27 PM REASON: S P Cardiac Surgery; Clinical Question(s): Other:; Cardiac Tamponade; Special Instructions:[facility] to [facility] / Other: COMPARISON: 06/13/2021 FINDINGS: LINES AND TUBES: Endotracheal tube ends 4.5 cm above the ankit. Enteric tube tip and side-port project in the stomach. Right internal jugular approach [place]Carol catheter with the tip projecting towards the pulmonary outflow tract, the catheter appears looped in the region of the right ventricle. Mediastinal drain and left chest tube in place. LUNGS AND PLEURA: Low lung volumes with mild basilar atelectasis. Lungs are otherwise clear with no definite consolidation. No pleural effusion. No pneumothorax. HEART, MEDIASTINUM AND ROBERT: Expected postoperative appearance status post CABG.. BONES AND SOFT TISSUES: Status post median sternotomy. IMPRESSION: Support structures as above. Postoperative changes status post CABG. WSN: [id number] Ordering Physician: Shaun Luu Dictated By: Santo Chadwick MD Dictated Date/Time: 06/17/21 3:15 pm Reviewed By: Santo Chadwick MD Signed By: Santo Chadwick MD Signed Date/Time: 06/17/21 3:15 pm Transcribed By: TASNEEM Transcribed Date/Time: 06/17/21 3:13 pm Vital Signs Most recent to oldest [Reference Range]: 1 2 3 Height 190.50 cm (06/23/21 11:57 AM) 190.50 cm (06/23/21 7:42 AM) 190.50 cm (06/23/21 4:54 AM) Weight 110.0 kg (06/23/21 4:54 AM) 110.4 kg (06/22/21 4:21 AM) 112.9 kg (06/21/21 5:56 AM) Oxygen Saturation [94-100 %] 94 % (06/23/21 2:00 PM) 93 % *L* (06/23/21 11:57 AM) 95 % (06/23/21 7:42 AM) Pulse Rate [55-90 bpm] 64 bpm (06/23/21 11:57 AM) 73 bpm (06/23/21 7:42 AM) 68 bpm (06/23/21 4:54 AM) Body Mass Index [18.5-24.99] 30.39 *>HHI* (06/17/21 6:25 AM) Blood Pressure [90-138/55-84 mm Hg] 110/55mm Hg (06/23/21 2:00 PM) 110/55mm Hg (06/23/21 11:57 AM) 135/59mm Hg (06/23/21 7:42 AM) Respiratory Rate [16-30 br/min] 16 br/min (06/23/21 3:12 PM) 18 br/min (06/23/21 2:00 PM) 18 br/min (06/23/21 11:57 AM) Temperature [96.8-100.4 DegF] 97.7 DegF (06/23/21 2:00 PM) 97.7 DegF (06/23/21 7:42 AM) 97.8 DegF (06/23/21 4:54 AM) Liters per Minute 1 L/min (06/21/21 11:22 AM) 1 L/min (06/21/21 8:00 AM) 2 L/min (06/21/21 7:00 AM) Mode of Delivery (Oxygen) Room air (06/23/21 2:00 PM) Room air (06/23/21 11:57 AM) Room air (06/23/21 7:42 AM) Blood pressure sites Arm, right (06/23/21 2:00 PM) Arm, right (06/23/21 11:57 AM) Arm, right (06/23/21 7:42 AM) Temperature Route Oral (06/23/21 2:00 PM) Oral (06/23/21 11:57 AM) Oral (06/23/21 7:42 AM) Dry Weight 110.3 kg (06/17/21 6:25 AM) Weight Obtained Via Bed scale (06/23/21 4:54 AM) Bed scale (06/22/21 4:21 AM) Bed scale (06/20/21 4:48 AM) Dry Weight Obtained Via Standing scale (06/17/21 6:25 AM) Social History Social History Type Response Smoking Status Never smoker; Tobacc o user in household: No entered on: 04/16/15 Sex
--- OUTSIDE RECORDS SUMMARY | 2023-04-30 06:15 | XMS_ITS | Continuity of Care Document ---
Author Name Unknown Organization [facility] Address [address] [place] [address]- Care Team Providers Care Wound Treatment Rn Name Role Phone Tony Hinton MD Primary Care Physician [phone] Encounter [facility] Date(s): 10/15/22 - 11/14/[address] [address] Allergies, Adverse Reactions, Alerts Substance Reaction Severity [...] 3 Refills, Maintenance, 04/09/21 12:13:00 EDT, Tablet, [facility], Partial fill upon patient request if the prescription is for a schedule II opioid drug., 191, cm, 04/09/21 11:40:... Start Date: 04/09/21 Status: Ordered lisinopril 5 mg oral tablet 5 mg, 1, tablet, By Mouth, Daily, # 90 tablet, Refills 3, Tot. Refills 3, Maintenance, 09/08/22 15:10:00 EST, Route to Pharmacy Electronically, [facility], Partial fill upon patient request if the prescription is for a schedule... Start Date: 09/08/22 Stop Date: 09/03/23 Status: Ordered lisinopril 5 mg oral tablet 5 mg, 1, tablet, By Mouth, Daily, for 90 days, # 90 tablet, Refills 3, Tot. Refills 3, Hard Stop 08/22/23 9:20:00 EST, 08/27/22 9:20:00 EST, Route to Pharmacy Electronically, [facility], Partial fill upon patient request if [...] 10/23/22 12:51:00 EST, Route to Pharmacy Electronically, [facility], Partial fill upon patient request if [...] (General Medicine) Member Role: PCP Address: Address: [address] [place] [address] Name: Ese Whaley RN Position: S RN Supv Member Role: Primary Care Nurse Name: Meenakshi Baca RN Position: S RN Supv Member Role: Primary Care Nurse Name: Opal Obrien RN Position: S RN Member Role: Primary Care Nurse Name: Paris Sanchez RN Position: [facility] RN Supv Member Role: Primary Care Nurse Name: Estephania Ruvalcaba Position: [facility] Outreach Member Role: Lifetime Consulting Physician Name: Lulú Hewitt RN Position: [facility] RN Member Role: Primary Care Nurse Name: Poornima Sanchez RN Position: [facility] RN Member Role: Primary Care Nurse Care Team Related Persons Name: MIC GREEN Address: [address] [address]
--- OUTSIDE RECORDS SUMMARY | 2023-04-30 06:15 | XMS_ITS | Continuity of Care Document ---
Author Name Unknown Organization [facility] Address [address] [place] [address]- Care Team Providers Care Health Care Specialist Name Role Phone Tony Hinton MD Primary Care Physician Encounter [facility] Date(s): 04/16/21 - 04/16/[address] [address]- Encounter Diagnosis Rib fractures(Final) - 04/16/21 Discharge Disposition: A-D/C Home Attending Physician: Chandler Miller DO Admitting Physician: Chandler Miller DO Referring Physician: Not on Staff, Referring MD [...] 04/26/21 6:55:00 EDT, 04/16/21 6:55:00 EDT, Tablet, [facility], Partial fill upon patient request if the prescription is for a schedule... Start Date: 04/16/21 Stop Date: 04/26/21 Status: Ordered Acetaminophen Tablet 975 mg, Tablet, By Mouth, Once, STAT, 04/16/21 5:18:00 EDT, Stop date 04/16/21 5:18:00 EDT Start Date: 04/16/21 Stop Date: 04/16/21 Status: Completed Aspirin 81, mg, By Mouth, Daily, 0, 0, 09/30/08 1:50:01, Print VIDYA Number, [id number], Constant Indicator Start Date: 09/30/08 Status: Ordered gabapentin 100 mg oral capsule 100 mg, 1, capsule, By Mouth, 3 times a day, # 90 capsule, Refills 0, Tot. Refills 0, Maintenance, 04/16/21 6:55:00 EDT, Route to Pharmacy Electronically, [facility], Partial fill upon patient request [...] 04/16/21 6:55:00 EDT, Route to Pharmacy Electronically, [facility], Partial fill upon sil... Start Date: 04/16/21 Stop Date: 04/26/21 Status: Ordered Lantus 100 u/ml subcutaneous solution = 100 units, Subcutaneous Infusion, Daily, 0 Refills, Maintenance, 07/02/20 17:36:00 EDT Start Date: 07/02/20 Status: Ordered lidocaine 5% topical cream 1 application, Topically, 3 times a day, for 5 days, # 30 Gm, 0 Refills, Acute 04/21/21 6:55:00 EDT, 04/16/21 6:55:00 EDT, Cream, [facility], Partial fill upon patient request [...] Date: 04/17/14 Stop Date: 04/12/15 Status: Ordered Motrin Tablet 600 mg, Tablet, By Mouth, Once, STAT, 04/16/21 5:18:00 EDT, Stop date 04/16/21 5:18:00 EDT Start Date: 04/16/21 Stop Date: 04/16/21 Status: Completed One Touch Ultra 2 Glucose Meter See [...] 04/16/21 6:55:00 EDT, Route to Pharmacy Electronically, [facility], Partial fill upon patient... Start Date: 04/16/21 Stop Date: 04/19/21 Status: Ordered OxyCODONE IR Tablet 5 mg, Tablet, By Mouth, Once, STAT, 04/16/21 5:18:00 EDT, Stop date 04/16/21 5:18:00 EDT Start Date: 04/16/21 Stop Date: 04/16/21 Status: Completed Problem List Condition Effective Dates Status Health [...] oldest [Reference Range]: 1 2 3 Height 191 cm (04/16/21 6:04 AM) 191 cm (04/16/21 3:29 AM) 191 cm (04/16/21 1:42 AM) Weight 111.9 kg (04/16/21 6:04 AM) 111.9 kg (04/16/21 3:29 AM) 111.9 kg (04/16/21 1:42 AM) Oxygen Saturation [94-100 %] 98 % (04/16/21 6:04 AM) 98 % (04/16/21 3:29 AM) 96 % (04/16/21 1:45 AM) Pulse Rate [55-90 bpm] 58 bpm (04/16/21 6:04 AM) 62 bpm (04/16/21 3:29 AM) 72 bpm (04/16/21 1:45 AM) Body Mass Index [18.5-24.99] 30.67 *>HHI* (04/16/21 6:04 AM) 30.67 *>HHI* (04/16/21 3:29 AM) Blood Pressure [90-138/55-84 mm Hg] 129/67mm Hg (04/16/21 6:04 AM) 141/63mm Hg *H* (04/16/21 3:29 AM) 159/67mm Hg *H* (04/16/21 1:45 AM) Respiratory Rate [16-30 br/min] 16 br/min (04/16/21 7:10 AM) 16 br/min (04/16/21 7:10 AM) 16 br/min (04/16/21 7:10 AM) Temperature [96.8-100.4 DegF] 97.8 DegF (04/16/21 1:45 AM) Liters per Minute 0 L/min (04/16/21 6:04 AM) 0 L/min (04/16/21 3:29 AM) Mode of Delivery (Oxygen) Room air (04/16/21 6:04 AM) Room air (04/16/21 3:29 AM) Room air (04/16/21 1:45 AM) Blood pressure sites Arm, right (04/16/21 6:04 AM) Arm, left (04/16/21 3:29 AM) Arm, left (04/16/21 1:45 AM) Temperature Route Oral (04/16/21 1:45 AM) Dry Weight 111.9 kg (04/16/21 6:04 AM) 111.9 kg (04/16/21 3:29 AM) 111.9 kg (04/16/21 1:42 AM) Weight Obtained Via Standing scale (04/16/21 1:42 AM) Dry Weight Obtained Via Standing scale (04/16/21 1:42 AM) Social History Social History Type Response Smoking Status Never smoker; Tobacc o user in household: No entered on: 04/16/15 Sex
--- OUTSIDE RECORDS SUMMARY | 2023-04-30 06:15 | XMS_ITS | Continuity of Care Document ---
Author Name Unknown Organization [facility] Address [address] [place] [address]- Care Team Providers Care Ditching Machine Operator Name Role Phone Tony Hinton MD Primary Care Physician Encounter [facility] Date(s): 04/12/21 - 05/12/[address] [address] Allergies, Adverse Reactions, [...] 0, 0, 09/30/08 1:50:01, Print VIDYA Number, [id number], Constant Indicator Start Date: 09/30/08 Status: Ordered gabapentin 100 mg oral capsule 100 mg, 1, capsule, By Mouth, 3 times a day, # 90 capsule, Refills 0, Tot. Refills 0, Maintenance, 04/16/21 6:55:00 EDT, Route to Pharmacy Electronically, [id number], Partial fill upon patient request if the [...]
--- OUTSIDE RECORDS SUMMARY | 2023-04-30 06:15 | XMS_ITS | Continuity of Care Document ---
Author Name Unknown Organization [facility] Address [address] [place] [address]- Care Team Providers Care Needle Punch Machine Operator Helper Name Role Phone Tony Hinton MD Primary Care Physician Encounter [facility] [id number] Date(s): 09/16/21 - 10/16/21 [facility] [address] [place] [address]- Allergies, Adverse Reactions, Alerts Substance Reaction Severity [...]
--- OUTSIDE RECORDS SUMMARY | 2023-04-30 06:15 | XMS_ITS | Continuity of Care Document ---
Author Name Unknown Organization [facility] Address [address] [place] [address]- Care Team Providers Care Manager Ship Name Role Phone Tony Hinton MD Primary Care Physician [phone] Encounter [facility] Date(s): 09/08/22 - 10/08/[address] [address] Allergies, Adverse Reactions, Alerts Substance Reaction [...] 3 Refills, Maintenance, 04/09/21 12:13:00 EDT, Tablet, [facility], Partial fill upon patient request if the prescription is for a schedule II opioid drug., 191, cm, 04/09/21 11:40:... Start Date: 04/09/21 Status: Ordered lisinopril 5 mg oral tablet 5 mg, 1, tablet, By Mouth, Daily, # 90 tablet, Refills 3, Tot. Refills 3, Maintenance, 09/08/22 15:10:00 EST, Route to Pharmacy Electronically, [facility], Partial fill upon patient request if the prescription is for a schedule... Start Date: 09/08/22 Stop Date: 09/03/23 Status: Ordered lisinopril 5 mg oral tablet 5 mg, 1, tablet, By Mouth, Daily, for 90 days, # 90 tablet, Refills 3, Tot. Refills 3, Hard Stop 08/22/23 9:20:00 EST, 08/27/22 9:20:00 EST, Route to Pharmacy Electronically, [id number], Partial fill upon patient request if the [...] tablet, Refills 3, Tot. Refills 3, Maintenance, 09/23/22 14:15:00 EST, Route to Pharmacy Electronically, [facility], Partial fill upon patient request if the prescription is for a schedule... Start Date: 09/23/22 Status: Ordered NovoLOG 100 units/mL injectable solution [...] (General Medicine) Member Role: PCP Address: Address: [address] [place] [id number] Name: Ese Whaley RN Position: S RN Supv Member Role: Primary Care Nurse Name: Meenakshi Baca RN Position: S RN Supv Member Role: Primary Care Nurse Name: Opal Obrien RN Position: S RN Member Role: Primary Care Nurse Name: Paris Sanchez RN Position: [facility] RN Supv Member Role: Primary Care Nurse Name: Estephania Ruvalcaba Position: [facility] Outreach Member Role: Lifetime Consulting Physician Name: Lulú Hewitt RN Position: [facility] RN Member Role: Primary Care Nurse Name: Poornima Sanchez RN Position: [facility] RN Member Role: Primary Care Nurse Care Team Related Persons Name: MIC GREEN Address: [address] [address]
--- OUTSIDE RECORDS SUMMARY | 2023-04-30 06:15 | XMS_ITS | Continuity of Care Document ---
Author Name Unknown Organization [facility] Address [address] [place] [address]- Care Team Providers Care Chicken And Fish Cleaner Name Role Phone Tony Hinton MD Primary Care Physician Encounter [facility] Date(s): 01/21/23 - 02/20/[address] [id number] Allergies, Adverse Reactions, Alerts Substance Reaction [...] 3 Refills, Maintenance, 04/09/21 12:13:00 EDT, Tablet, [facility], Partial fill upon patient request if the prescription is for a schedule II opioid drug., 191, cm, 04/09/21 11:40:... Start Date: 04/09/21 Status: Ordered lisinopril 5 mg oral tablet 5 mg, 1, tablet, By Mouth, Daily, # 90 tablet, Refills 3, Tot. Refills 3, Maintenance, 09/08/22 15:10:00 EST, Route to Pharmacy Electronically, [facility], Partial fill upon patient request if the prescription is for a schedule... Start Date: 09/08/22 Stop Date: 09/03/23 Status: Ordered lisinopril 5 mg oral tablet 5 mg, 1, tablet, By Mouth, Daily, for 90 days, # 90 tablet, Refills 3, Tot. Refills 3, Hard Stop 08/22/23 9:20:00 EST, 08/27/22 9:20:00 EST, Route to Pharmacy Electronically, [id number], Partial fill upon [...] 10/23/22 12:51:00 EST, Route to Pharmacy Electronically, [facility], Partial fill upon patient request if [...] 5 Refills, Maintenance, 01/26/23 9:26:00 EDT, Capsule, [id number], Partial fill upon patient request if the [...] Team Personnel Name: Tony Hinton MD Position: S Outreach Member Role: PCP Address: Address: [address] [place] [address], [place] [address]- Name: Ese Whaley RN Position: [facility] RN Supv Member Role: Primary Care Nurse Name: Meenakshi Baca RN Position: S RN Supv Member Role: Primary Care Nurse Name: Opal Obrien RN Position: S RN Member Role: Primary Care Nurse Name: Paris Sanchez RN Position: [facility] RN Supv Member Role: Primary Care Nurse Name: Estephania Ruvalcaba Position: [facility] Outreach Member Role: Lifetime Consulting Physician Name: Lulú Hewitt RN Position: [facility] RN Member Role: Primary Care Nurse Name: Poornima Sanchez RN Position: [facility] RN Member Role: Primary Care Nurse Care Team Related Persons Name: MIC GREEN Address: [address] [address]
--- OUTSIDE RECORDS SUMMARY | 2023-04-30 06:15 | XMS_ITS | Continuity of Care Document ---
Author Name Unknown Organization [facility] Address [address] [place] [address]- Care Team Providers Care Edi Coordinator Name Role Phone Tony Hinton MD Primary Care Physician Encounter [facility] Date(s): 06/21/21 - 07/21/[address] [address] Attending Physician: Not on Staff, Attending MD Admitting Physician: Not on Staff, Admitting MD Referring Physician: Not on Staff, Referring [...] 06/23/21 13:52:00 EDT, Route to Pharmacy Electronically, [facility], Partial fill upon patient request if the prescription is for a schedule... Start Date: 06/23/21 Status: Ordered amLODIPine 10 mg oral tablet 1 tablet = 10 mg, By Mouth, Daily, # 30 tablet, 0 Refills, Maintenance, 06/23/21 13:53:00 EDT, Tablet, [facility], Partial fill upon patient [...]
--- OUTSIDE RECORDS SUMMARY | 2023-04-30 06:15 | XMS_ITS | Continuity of Care Document ---
Author Name Unknown Organization [facility] Address [address] [address]- Care Team Providers Care Tree Puller Name Role Phone Tony Hinton MD Primary Care Physician Encounter [facility] [id number] Date(s): 05/02/20 - 05/09/[address] [address]- [facility] Attending Physician: Cheyenne MORGAN, Tacho Salazar Allergies, Adverse Reactions, Alerts Substance Reaction Severity [...] 0, 0, 09/30/08 1:50:01, Print VIDYA Number, [id number], Constant Indicator Start Date: 09/30/08 Status: Ordered atorvastatin 20 mg oral tablet 1 tablet = 20 mg, By Mouth, Daily, 0 Refills, Maintenance Start Date: 03/04/19 Status: Ordered Humalog 100 u/ml subcutaneous injection See Instructions, Subcutaneous Injection, 15 minutes before or immediately after a meal Sliding scale 2-12 units based on blood sugars, # 20 mL, 0 Refills, Maintenance, 04/25/15 7:51:31, 15 minutes before or immediately after a meal; Sliding scale 2-... Start Date: 04/25/15 Stop Date: 05/25/15 Status: Ordered Lantus 100 u/ml subcutaneous solution 40 units, Subcutaneous Injection, 2 times a day, # 15 mL, 5 Refills, Maintenance, 04/17/14 15:43:15, Solution, 40 units Subcutaneous Injection 2 times a day,x30 days Start Date: 04/17/14 Stop Date: 10/09/15 Status: Ordered lisinopril 20 mg oral tablet See Instructions, 1/2 tablet By Mouth Daily Needs to be seen and have labs before refills, # 10 Doses, 0 Refills, Maintenance, 04/06/15 9:14:27, Tablet, 1/2 tablet By Mouth Daily; Needs to be seen and have labs before refills Start Date: 04/06/15 Status: Ordered metformin 1000 mg oral tablet [...] oldest [Reference Range]: 1 Height 191 cm (05/02/20 9:26 AM) Pulse Rate [55-90 bpm] 71 bpm (05/02/20 9:26 AM) Blood Pressure [90-138/55-84 mm Hg] 163/ 63mm Hg *H* (05/02/20 9:26 AM) Temperature [96.8-100.4 DegF] 97.3 DegF (05/02/20 9:26 AM) Blood pressure sites Arm, left (05/02/20 9:26 AM) Temperature Route Tympanic (05/02/20 9:26 AM) Social History Social History Type Response Smoking Status Never smoker; Tobacc o user in household: No entered on: 04/16/15 Sex
--- OUTSIDE RECORDS SUMMARY | 2023-04-30 06:15 | XMS_ITS | Continuity of Care Document ---
Author Name Unknown Organization [facility] Address [address] [address]- Care Team Providers Care Technician Chemical Cleaning Name Role Phone Tony Hinton MD Primary Care Physician Encounter [facility] Date(s): 07/30/21 - 08/29/21 [facility] [address] [address]- Allergies, Adverse Reactions, Alerts Substance Reaction Severity [...]
--- OUTSIDE RECORDS SUMMARY | 2023-04-30 06:15 | XMS_ITS | Continuity of Care Document ---
Author Name Unknown Organization [facility] Address [address] [address]- Care Team Providers Care Tail Trimmer Name Role Phone Jamaal MORGAN, Tony Primary Care Physician Encounter [facility] Date(s): 05/16/21 - 05/23/21 [facility] [address] [address]- Attending Physician: Krishna Willett MD Referring Physician: [...] 0, 0, 09/30/08 1:50:01, Print VIDYA Number, [id number], Constant Indicator Start Date: 09/30/08 Status: Ordered [...] recent to oldest [Reference Range]: 1 Height 190.5 cm (05/16/21 4:12 PM) Weight 113 kg (05/16/21 4:12 PM) Oxygen Saturation [94-100 %] 97 % (05/16/21 4:12 PM) Pulse Rate [55-90 bpm] 74 bpm (05/16/21 4:12 PM) Body Mass Index [18.5-24.99] 31.14 *>HHI* (05/16/21 4:12 PM) Blood Pressure [90-138/55-84 mm Hg] 134/ 80mm Hg (05/16/21 4:12 PM) Respiratory Rate [16-30 br/min] 18 br/mi n (05/16/21 4:12 PM) Mode of Delivery (Oxygen) Room air (05/16/21 4:12 PM) Blood pressure sites Leg, right (05/16/21 4:12 PM) Weight Obtained Via Patient/family state d (05/16/21 4:12 PM) Social History Social History Type Response Smoking Status Never smoker; Tobacc o user in household: No entered on: 04/16/15 Sex
--- OUTSIDE RECORDS SUMMARY | 2023-04-30 06:15 | XMS_ITS | Continuity of Care Document ---
Author Name Unknown Organization [facility] Address [address] [place] [address]- Care Team Providers Care Hand Heel Seat Fitter Name Role Phone Tony Hinton MD Primary Care Physician Encounter [id number] Date(s): 07/24/22 - 08/23/22 [facility] [address] [place] [address]- Attending Physician: Keli Chambers Admitting Physician: Keli [...] 3 Refills, Maintenance, 04/09/21 12:13:00 EDT, Tablet, Pharmacy, Partial fill upon patient request if the prescription is for a schedule II opioid drug., 191, cm, 04/09/21 11:40:... Start Date: 04/09/21 Status: Ordered lisinopril 5 mg oral tablet 5 mg, 1, tablet, By Mouth, Daily, # 90 tablet, Refills 3, Tot. Refills 3, Maintenance, 11/06/21 16:51:00 EST, Route to Pharmacy Electronically, Pharmacy, Partial fill upon patient request if [...] By Mouth, Daily, # 90 tablet, Refills 2, Tot. Refills 2, Maintenance, 07/01/22 9:16:00 EDT, Route to Pharmacy Electronically, [id number], Partial fill upon patient request if the prescription is for a schedule II opioid dr... Start Date: 07/01/22 Status: Ordered NovoLOG 100 units/mL injectable solution [...] Team Personnel Name: [place] Shore RN Position: [facility] RN Member Role: Primary Care Nurse Name: Tony Hinton MD Position: [facility] Physician (General Medicine) Member Role: PCP Address: Address: [address] [place] [address] Name: Ese Whaley RN Position: [facility] RN Supv Member Role: Primary Care Nurse Name: Meenakshi Baca RN Position: [facility] RN Supv Member Role: Primary Care Nurse Name: Opal Obrien RN Position: [facility] RN Member Role: Primary Care Nurse Name: Paris Sanchez RN Position: [facility] RN Supv Member Role: Primary Care Nurse Name: Estephania Ruvalcaba Position: S Outreach Member Role: Lifetime Consulting Physician Name: Lulú Hewitt RN Position: [facility] RN Member Role: Primary Care Nurse Name: Poornima Sanchez RN Position: [facility] RN Member Role: Primary Care Nurse Care Team Related Persons Name: MIC GREEN Address: [address] [address]
--- OUTSIDE RECORDS SUMMARY | 2023-04-30 06:15 | XMS_ITS | Continuity of Care Document ---
Author Name Unknown Organization [facility] Address [address] [address]- Care Team Providers Care Golf Instructor Name Role Phone Tony Hinton MD Primary Care Physician Encounter [facility] Date(s): 07/03/21 - 08/02/21 [facility] [address] [address]- Attending Physician: Keli Chambers Admitting Physician: Keli Chambers Referring Physician: AdmKeli andrea Allergies, Adverse Reactions, Alerts Substance Reaction Severity [...] 06/23/21 13:52:00 EDT, Route to Pharmacy Electronically, [facility], Partial fill upon patient request if the prescription is for a schedule... Start Date: 06/23/21 Status: Ordered amLODIPine 10 mg oral tablet 1 tablet = 10 mg, By Mouth, Daily, # 30 tablet, 0 Refills, Maintenance, 06/23/21 13:53:00 EDT, Tablet, [facility], Partial fill upon patient request [...]
--- OUTSIDE RECORDS SUMMARY | 2023-04-30 06:15 | XMS_ITS | Continuity of Care Document ---
Author Name Unknown Organization [facility] Address [address] [address]- Care Team Providers Care Civil Designer Name Role Phone Tony Hinton MD Primary Care Physician [place] [facility] [place]/21/23 - 04/28/[address] [address]- Attending Physician: Diego Lopes MD Admitting Physician: Diego Lopes MD Referring Physician: Tony Hinton MD Allergies, Adverse [...] 3 Refills, Maintenance, 04/09/21 12:13:00 EDT, Tablet, [facility], Partial fill upon patient request if the prescription is for a schedule II opioid drug., 191, cm, 04/09/21 11:40:... Start Date: 04/09/21 Status: Ordered isosorbide mononitrate 60 mg oral tablet, extended release 1 tablet = 60 mg, By Mouth, Daily in AM, # 90 tablet, 0 Refills, Maintenance, 03/02/23 15:07:00 EDT, ER Tablet, [id number], Partial fill upon patient request if the prescription is for a schedule II opioid drug., 190.5, cm, 03/02/23 14:42:0... Start Date: 03/02/23 Status: Ordered lisinopril 5 mg oral tablet 5 mg, 1, tablet, By Mouth, Daily, # 90 tablet, Refills 3, Tot. Refills 3, Maintenance, 09/08/22 15:10:00 EST, Route to Pharmacy Electronically, [facility], Partial fill upon patient [...] 04/17/14 Stop Date: 04/12/15 Status: Ordered metoprolol 25 mg oral tablet, extended release 50 mg, 2, tablet, By Mouth, Daily, # 180 tablet, Refills 3, Tot. Refills 3, Maintenance, 04/21/23 11:11:00 EDT, Route to Pharmacy Electronically, [id number], Partial fill upon patient request if the prescription is for a schedule II opioid... Start Date: 04/21/23 Stop Date: 04/15/24 Status: Ordered NovoLOG 100 units/mL injectable solution [...] Date: 09/13/14 Stop Date: 06/10/15 Status: Ordered Ozempic Subcutaneous Infusion, 0 Refills, Maintenance, 04/21/23 10:30:00 EDT, Partial fill upon patient request if the prescription is for a schedule II opioid drug. Start Date: 04/21/23 Status: Ordered senna 25 mg oral tablet [...] 5 Refills, Maintenance, 01/26/23 9:26:00 EDT, Capsule, [id number], Partial fill upon patient request if the [...] Confirmed 06/14/12 Active Vertigo Confirmed 12/03/12 Active Vital Signs Most recent to oldest [Reference Range]: 1 Height 190.50 cm (04/21/23 10:28 AM) Weight 111.2 kg (04/21/23 10:28 AM) Oxygen Saturation [94-100 %] 99 % (04/21/23 10:28 AM) Pulse Rate [55-90 bpm] 84 bpm (04/21/23 10:28 AM) Body Mass Index [18.5-24.99 kg/m2] 30.64 kg/m2 *>HHI* (04/21/23 10:28 AM) Blood Pressure [90-138/55-84 mm Hg] 130/ 71mm Hg (04/21/23 10:28 AM) Blood pressure sites Arm, right (04/21/23 10:28 AM) Weight Obtained Via Standing scale (04/21/23 10:28 AM) Social History Social History Type Response Smoking Status Never smoker; Tobacc o user in household: No entered on: 04/16/15 Sex EKG study * Event Display: ECG 12-Lead Authored Date: Please click on pdf link to open report * Event Display: ECG 12-Lead Authored Date: Ventricular Rate: 84 BPM Atrial Rate: 84 BPM P-R Interval: 208 ms QRS Duration: 80 ms Q-T Interval: 328 ms QTC Calculation(Bazett): 387 ms P Beaumont: 60 degrees R Beaumont: 19 degrees T Beaumont: 240 degrees Normal sinus rhythm ST and T wave abnormality, consider inferolateral ischemia Abnormal ECG When compared with ECG of 19-JUN-2021 06:48, Premature atrial complexes are no longer Present ST no longer elevated in Anterolateral leads Inverted T waves have replaced nonspecific T wave abnormality in Inferior leads T wave inversion now evident in Anterior leads QT has shortened Confirmed by DIEGO LOPES ([id number]) on 04/21/2023 5:42:33 PM Mullen: DIEGO LOPES Cardiology Outpatient Note * Diego Lopes MD: PERFORM Event Display: Cardiology Note Office Authored Date: Patient: ??NORMA, CRISARAH ? Age:??73 Years?Sex:??Male?:??1950?? Patient Hx Cardiology Shared Clinical Summary History: CAD prior CABG (HERNANDEZ to LAD, radial graft to OM1, and RSVG to L PDA) DM HTN HLD CKD Provider Clinical Summary 73-year-old man??seeking a second opinion about CAD management.?? See multiple prior cardiology note for details.?? Most recent??CT coronary angiogram??demonstrates??patent grafts??with a??50% stenosis of the midportion of the radial artery graft to the OM1, along with ho-chunk coronary artery disease .?? He did have a exercise nuclear stress test following CABG, which demonstrated no obvious signs of ischemia although he did have marked chronotropic incompetence at the time.?? Since then did havedown titration of??metoprolol succinate??from 100 mg daily to 50 mg daily.?? Was advised to trial isosorbide mononitrate at his last cardiology visit although this caused headaches and made him feel generally queasy, so he is no longer taking this medication.?? Currently on Ozempic with about a 20-25 pound weight loss over the course of the last 6 to 8 weeks and blood pressures have markedly improved.?? No longer on lisinopril.?? Compliant with aspirin and statin.?? Has already been cleared marita upcoming back surgery. ?? Impression and plan: I think he is an acceptable risk for an upcoming back surgery.?? I do not feel that we necessarily need to pursue a repeat heart catheterization or stenting of his radial artery graft to the OM1.?? First, would like to down titrate beta- yesenia further to see if symptoms of low-grade dyspnea and lightheadedness are due to chronotropic incompetence.?? I am advising that he adjust his metoprolol to25 mg daily??after?? his back surgery.?? If this down titration does not significantly alleviate his symptoms, and he continues to feel dyspneic with ongoing weight loss, left heart cath could be of course considered in the future.? RTC 3 to 4 months Physical Exam Vitals & Measurements HR:??84??(Peripheral)?? BP:??130/71?? SpO2:??99%?? HT:??190.50??cm?? WT:??111.2??kg?? BMI:??30.64?? Weight lb/oz: 245 lb 2 oz GENERAL: ??Alert and oriented x3, no acute distress. HEENT: Mucous membranes pink and moist. ?? NECK: ??No JVD?? LUNGS: Clear to auscultation bilaterally. ??No crackles, wheezing, rhonchi. ?? HEART: ??Regular rate and rhythm, normal S1, S2. ??No murmurs, rubs, or gallops.?? ABDOMEN: Soft, nontender, nondistended.?? EXTREMITIES: ??No pitting edema, cyanosis, clubbing. ?? PULSES: 2+ radials SKIN: Warm and well perfused. ?? NEURO: ??Oriented to person, time, and place, following commands, and moving all extremities.?? MUSCULOSKELETAL: ??Negative.?? Assessment/Plan CAD (coronary artery disease) Ordered: ECG 12 Lead ?? Orders: Metoprolol, 50 mg, 2, tablet, By Mouth, Daily, # 180 tablet, Refills 3, Tot. Refills 3, Maintenance, 04/21/23 11:11:00 EDT, Route to Pharmacy Electronically, [id number], Partial fill upon patient request if the prescription is for a schedule II opioid... Medical Decision Making HIGH -chronic illness w/ SEVERE exac, progression, or AE of Tx, or illness or injury that poses a threat to life or bodily function; 2 of (note / test / order / indep historian = 3), interpretation /discussion; HIGH risk Allergies Crestor??(muscle aches, fatigue) simvastatin??(muscle aches, fatigue) Home Medications Aspirin, 81 mg, By Mouth, Daily in AM atorvastatin 40 mg oral tablet, 40 mg= 1 tablet, By Mouth, Daily, 3 refills metformin 1000 mg oral tablet, 1000 mg= 1 tablet, By Mouth, 2 times a day, 3 refills metoprolol 25 mg oral tablet, extended release, 50 mg= 2 tablet, By Mouth, Daily, 3 refills NovoLOG 100 units/mL injectable solution, Subcutaneous Infusion, 3 times a day before meals One Touch Ultra 2 Glucose Meter, See Instructions One Touch Ultra Test Strips, See Instructions, 5 refills One Touch UltraSoft Lancets, See Instructions, 2 refills Ozempic, Subcutaneous Infusion senna 25 mg oral tablet, 50 mg= 2 tablet, By Mouth, 2 times a day Tresiba 100 units/mL subcutaneous solution, Subcutaneous Infusion, Daily Vitamin D3 2000 intl units oral capsule, 50 mcg= 1 capsule, By Mouth, Daily, 5 refills Lab Results Cardiology Labs WBC: 7.9 k/mm3 (01/23/23) RBC:??4.34 m/mm3??Low (01/23/23) Hgb:??13.4 Gm/dL??Low (01/23/23) Hct:??40.4 %??Low (01/23/23) MCV: 93.1 femtoliters (01/23/23) MCH: 30.9 pg (01/23/23) MCHC: 33.2 g/dL (01/23/23) Platelet Count: 320 k/mm3 (01/23/23) RDW-SD: 45.4 femtoliters (01/23/23) Nucleated RBC (Automated): 0 #/100 WBC'S (01/23/23) Sodium: 138 mmol/L (01/23/23) Potassium: 5 mmol/L (01/23/23) Chloride: 105 mmol/L (01/23/23) Bicarbonate Level: 22 mmol/L (01/23/23) Glucose Level:??122 mg/dL??High (01/23/23) Hemoglobin A1C (Monitoring):??8.1 %??High (12/16/22) BUN:??25 mg/dL??High (01/23/23) Creatinine-Blood:??1.7 mg/dL??High (01/23/23) Calcium: 10.4 mg/dL (01/23/23) Protein, Total: 7.1 Gm/dL (07/02/22) Albumin: 4.7 Gm/dL (07/02/22) Alkaline Phosphatase: 66 units/L (07/02/22) AST (SGOT): 17 units/L (07/02/22) ALT (SGPT): 25 units/L (07/02/22) Bilirubin, Total: 0.4 mg/dL (07/02/22) Cholesterol: 142 mg/dL (12/16/22) Triglycerides:??243 mg/dL??High (12/16/22) HDL Cholesterol:??33 mg/dL??Low (12/16/22) LDL Cholesterol: 60 mg/dL (12/16/22) Non HDL Cholesterol: 109 mg/dL (12/16/22) TSH: 3.02 uIU/mL (01/23/23) Diagnostic Impression CT CT Heart/Coronary/3D/Morph ?? 22:46:41 IMPRESSION: ?? Patient is status post multivessel CABG. ?? HERNANDEZ graft: The most proximal portion of the left internal mammary artery is degraded by streak artifact from patient???s arm, but probably patent. Rest of the graft is patent, joining the distal LAD. ?? Radial artery graft to the OM1: At the mid portion of the graft, there is suspicious focal close to 50% stenosis. This level is obscured by adjacent surgical material. ?? Venous graft to the left PDA: The graft is patent. ?? [place] coronary arteries: ?? Left Main: There is a mixed plaque in the proximal left main, with about 40% stenosis. ?? Left Anterior Descending: There is heavy calcification in the proximal-mid segment, with multifocalprobably less than 70% stenosis. ?? Left Circumflex Artery: There is heavy calcification of the proximal segment with probably more than 50% stenoses. First obtuse marginal is a medium-sized branch, with proximal heavy calcification and more than 50%stenoses. Distal to the graft anastomosis it is patent. Distal circumflex supplies the PDA which shows multifocal moderate about 50% stenoses distal to thegraft anastomosis, and a posterior lateral ventricular branch which shows less than 50% stenosis. ?? Right Coronary Artery: There is proximal heavy calcification with probably less than 70% stenosis. WSN: [id number] ? Ordering Physician: Sarah Fulton ?? Signed By: Maite Guzman MD Stress Test NM Myocard Perf SPECT Multi ?? 08:16:47 Summary No evidence of stress induced ischemia or prior myocardial infarction. Normal left ventricular ejection fraction, no wall motion abnormalities, normal chamber size. ?? Signatures _ _ ?? Signed By: Frankie Sheth MD Echo Echocardiogram - Complete ?? 08:35:02 Summary The left ventricular size is normal. The left ventricular wall thickness is mildly increased. Normal LV systolic function. Ejection fraction is 55-60%. ?? The right ventricle is normal in size and function. ?? There is no significant valve disease. ?? Comparison Comparison is made to the study of June 13, 2021. There is no significant change. ?? Signature ?? Signed By: Meryl MORGAN, Frankie Christianson VL Studies VL Carotid Duplex Scan Bilat ?? 08:01:54 Summary: Right side: 1-49% stenosis of the Internal Carotid Artery. Antegrade Vertebral artery flow. Biphasic Subclavian artery flow. ?? Left side: 1-49% stenosis of the Internal Carotid Artery. Antegrade Vertebral artery flow. Biphasic Subclavian artery flow. ? Page 3/3 [facility] [birth year] [id number] 06/13/2021 8:01 AM ?? Signed By: Jason Lawrence MD Problem List/Past Medical History Ongoing Bilateral hip pain Carpal Tunnel Syndrome CTS CTS (carpal tunnel syndrome) Diabetes mellitus without mention of complication, type II or unspecified type, not stated as uncontrolled Obese class I Pain in shoulder Peripheral Autonomic Neuropathy 337.1 Post-operative state Pure Hypercholesterolemia Sexual dysfunction NOS Trigger finger of left hand 4th Unspecified Essential Hypertension Vertigo Procedure/Surgical History lt knee x1 tonsillectomy rt knee x2 Heart TRIPLE BYPASS Prostate cancer Follow-Up Appointments Added Follow Up ?Time Frame ?Comments Diego Lopes?3 months Social History Alcohol Use: Never. Employment/School Status: Employed. Home/Environment Living situation: Home/Independent. Lives with: Spouse. Substance Abuse Use: Never. Tobacco Never smoker, Tobacco user in household: No. Family History Father: COPD Mother: Bone cancer ? 11-JUL-2016 23:30:23<$> Brother: CAD - Coronary artery disease Sister: Liver Note * Gracia Emely: PERFORM, SIGN, VERIFY Event Display: Patient Education/Instruction Authored Date: [id number] [facility] *[facility] Hrt Vas Off Clinical Summary Name MIKY GREEN Age 73 Years 1950 PCP Tony Hinton MD [facility] [id number] Visit Date 04/21/2023 10:11:00 Additional Instructions: Scheduled Appointments?? Future Appointments ?No Future Appointments Scheduled Follow-Up Instructions ?? With: Address: When: Diego Lopes Within 3 months Diagnosis Atherosclerotic heart disease of ho-chunk coronary artery without angina pectoris Medications: Please continue your medications until treatment is completed or stopped by your provider. Discuss any questions related to medications with your provider. Medications to Continue with No Changes These medications were not printed or sent to your pharmacy Aspirin 81 Milligram Oral Daily in the morning. Next Dose: Atorvastatin (atorvastatin 40 mg oral tablet) 1 tab(s) Oral Daily. Refills: 3. Next Dose: Cholecalciferol (Vitamin D3 2000 intl units oral capsule) 1 capsule Oral Daily. Refills: 5. Next Dose: Durable Medical Equipment (One Touch Ultra 2 Glucose Meter) to use to test blood sugars for dm 250.00. Refills: 0. Next Dose: Durable Medical Equipment (One Touch Ultra Test Strips) Use to test blood sugars up to 4x daily DX 250.02. Refills: 5. Next Dose: Durable Medical Equipment (One Touch UltraSoft Lancets) Use to test blood sugar 3 to 6 times a day Dx: 250.00 IDDM. Refills: 2. Next Dose: Insulin Aspart (NovoLOG 100 units/mL injectable solution) Subcutaneous Infusion 3 times a day before meals. sliding scale as instructed by Dr Hinton pcp. Next Dose: insulin degludec (Tresiba 100 units/mL subcutaneous solution) Subcutaneous Infusion Daily. 40 unitsin the am. Next Dose: Isosorbide Mononitrate (isosorbide mononitrate 60 mg oral tablet, extended release) 1 tab(s) Oral Daily in the morning. Refills: 0. Next Dose: Lisinopril (lisinopril 5 mg oral tablet) 1 tab(s) Oral Daily for 90 Days. Refills: 3. Next Dose: Metformin (metformin 1000 mg oral tablet) 1 tab(s) Oral twice a day for 90 Days. Refills: 3. Next Dose: Metoprolol (metoprolol 50 mg oral tablet, extended release) 1 tab(s) Oral Daily. Refills: 3. Next Dose: semaglutide (Ozempic) Subcutaneous Infusion. Next Dose: Senna (senna 25 mg oral tablet) 2 tab(s) Oral twice a day. Next Dose: Allergy Info:?? Crestor; simvastatin Medications Given This Visit Future Orders ?No future orders Vital Signs Height 190.50 cm Weight 111.2 kg BMI 30.64 kg/m2 Blood Pressure 130 mm Hg/71 mm Hg Temperature Pulse Rate 84 bpm Respiratory Rate 02 Sat Mode of Delivery 99 %/ You can now view a summary of your hospital visit from the comfort of your home through a free online portal called [employer]. [employer] is a website that allows you to securely view your medical information including discharge summary, medications and follow-up visits. ??You can alsosend a secure electronic message to your doctor???s office to request appointments, renew medications or just ask a question. You can enroll at [email or web address] or register during your next office visit. Disclaimer:?? The information provided is of a general nature and is intended to be used in conjunction with the recommendations and advice of your health care practitioner. ??Every effort has been made to ensure that the information provided is accurate and complete at the time it is provided to you however, as your needs change, or, as new ??information becomes available, different or additional instructions may be required. If you have questions, please consult with your primary care provider or pharmacist, as appropriate. ??This information is not intended to serve as substitution for assessment and evaluation by a qualified health care provider. If you do not have a primary care provider, you may find a [facility] provider by calling [facility] Link at [phone]. For information about the plan of care including goals and instructions for your diagnosis, please see the patient education orders section of this document. Patient Education Materials?? The content of this educational material or handout may have been modified, supplemented, or adapted from its original content and format to support your individualized medical care. Patient Care team information Care Team Personnel Name: Tony Hinton MD Position: [facility] Physician - Pediatrics Member Role: PCP Address: Address: [address] [place] [id number] Name: Ese Whaley RN [facility] Consulting Physician Name: Lulú Hewitt RN Position: S RN Member Role: Primary Care Nurse Name: Nadine Velez RN Position: S Outreach Member Role: Primary Care Nurse Name: Poornima Sanchez RN Position: S RN Member Role: Primary Care Nurse Care Team Related Persons Name: NORMA MIC Address: [address] [address]
--- OUTSIDE RECORDS SUMMARY | 2023-04-30 06:15 | XMS_ITS | Continuity of Care Document ---
Author Name Unknown Organization [facility] Address [address] [place] [address]- Care Team Providers Care Cash Posting Specialist Name Role Phone Tony Hinton MD Primary Care Physician Encounter [facility] Date(s): 11/14/21 - 12/14/21 [facility] [address], [place] [address] Attending Physician: Admtr, Ar8 Admitting Physician: AdmtrKeli Referring Physician: Admtr, Ar8 [...]
--- OUTSIDE RECORDS SUMMARY | 2023-04-30 06:15 | XMS_ITS | Continuity of Care Document ---
Author Name Unknown Organization [facility] Address [address] [address]- Care Team Providers Care Vertical Lathe Operator Name Role Phone Tony Hinton MD Primary Care Physician [phone] [place] [facility] [place] Date(s): 06/27/21 - 07/27/21 [facility] [address] [address]- Allergies, Adverse Reactions, Alerts Substance Reaction Severity [...] 06/23/21 13:52:00 EDT, Route to Pharmacy Electronically, [facility], Partial fill upon patient request if the prescription is for a schedule... Start Date: 06/23/21 Status: Ordered amLODIPine 10 mg oral tablet 1 tablet = 10 mg, By Mouth, Daily, # 30 tablet, 0 Refills, Maintenance, 06/23/21 13:53:00 EDT, Tablet, [facility], Partial fill upon patient [...]
--- OUTSIDE RECORDS SUMMARY | 2023-04-30 06:16 | XMS_ITS | Continuity of Care Document ---
Author Name Unknown Organization [facility] Address [address] [address]- Care Team Providers Care Laborer Powerhouse Name Role Phone Tony Hinton MD Primary Care Physician [place] [facility] [place] - 06[place]/21 [facility] [address] [address]- Allergies, Adverse Reactions, Alerts Substance Reaction Severity [...] 06/23/21 13:52:00 EDT, Route to Pharmacy Electronically, [facility], Partial fill upon patient request if the prescription is for a schedule... Start Date: 06/23/21 Status: Ordered amLODIPine 10 mg oral tablet 1 tablet = 10 mg, By Mouth, Daily, # 30 tablet, 0 Refills, Maintenance, 06/23/21 13:53:00 EDT, Tablet, [facility], Partial fill upon [...] 06/23/21 13:52:00 EDT, Route to Pharmacy Electronically, [facility], Partial fill upon patient request [...] 06/23/21 13:52:00 EDT, Route to Pharmacy Electronically, [facility], Partial fill upon [...]
--- OUTSIDE RECORDS SUMMARY | 2023-04-30 06:16 | XMS_ITS | Continuity of Care Document ---
Author Name Unknown Organization [facility] Address [address] [place] [address]- Care Team Providers Care Clinical Science Liaison Name Role Phone Tony Hinton MD Primary Care Physician [phone] Encounter 06/24/21 - 07/09/21 [facility] [address] [place] [address]- Discharge Disposition: PER CLIENT REQUEST Allergies, Adverse Reactions, Alerts Substance Reaction Severity [...] 06/23/21 13:52:00 EDT, Route to Pharmacy Electronically, [facility], Partial fill upon patient request if the prescription is for a schedule... Start Date: 06/23/21 Status: Ordered amLODIPine 10 mg oral tablet 1 tablet = 10 mg, By Mouth, Daily, # 30 tablet, 0 Refills, Maintenance, 06/23/21 13:53:00 EDT, Tablet, [facility], Partial fill upon patient [...] 06/23/21 13:52:00 EDT, Route to Pharmacy Electronically, [facility], Partial fill upon patient [...] 06/23/21 13:52:00 EDT, Route to Pharmacy Electronically, [facility], Partial fill upon patient [...]
--- OUTSIDE RECORDS SUMMARY | 2023-04-30 06:16 | XMS_ITS | Continuity of Care Document ---
Author Name Unknown Organization [facility] Address [address] [place] [address]- Care Team Providers Care Vehicle Window Tinter Name Role Phone Tony Hinton MD Primary Care Physician [phone] Encounter [facility] Date(s): 07/09/21 - 08/08/21 [facility] [address], [place] [address] Allergies, Adverse Reactions, Alerts Substance [...]
--- OUTSIDE RECORDS SUMMARY | 2023-04-30 06:16 | XMS_ITS | Continuity of Care Document ---
Author Name Unknown Organization [facility] Address [address] [address]- Care Team Providers Care Nurse Ldr Name Role Phone Tony Hinton MD Primary Care Physician Encounter [facility] Date(s): 05/02/20 - 06/01/20 [facility] [address] [address]- [facility] Attending Physician: Admtr, Ar8 Admitting Physician: Admtr, Ar8 Referring Physician: Admtr, Ar8 Allergies, Adverse Reactions, [...] 0, 0, 09/30/08 1:50:01, Print VIDYA Number, [id number], Constant Indicator Start Date: 09/30/08 Status: Ordered [...]
--- OUTSIDE RECORDS SUMMARY | 2023-04-30 06:16 | XMS_ITS | Continuity of Care Document ---
Author Name Unknown Organization [facility] Address [address] [place] [address]- Care Team Providers Care Sandwich Counter Attendant Name Role Phone Tony Hinton MD Primary Care Physician [place] [facility] [place] 07/22/21 - 10/15/[address] [address] Encounter Diagnosis Atherosclerotic heart disease of [place] coronary artery without angina pectoris (Final) - Discharge Disposition: A-D/C Home Attending Physician: Krishna Willett MD Admitting Physician: Krishna Willett MD Referring Physician: Krishna Willett MD Allergies, Adverse [...]
--- OUTSIDE RECORDS SUMMARY | 2023-04-30 06:16 | XMS_ITS | Continuity of Care Document ---
Author Name Unknown Organization [facility] Address [address] [place] [id number]- Care Team Providers Care Recovery Advocate Name Role Phone Tony Hinton MD Primary Care Physician Encounter [facility] NBR [id number] Date(s): 07/02/20 - 07/02/[address] [address]- [facility] Discharge Disposition: A-D/C Home Attending Physician: Joey Rangel MD Admitting Physician: Joey Rangel MD Referring Physician: Not on Staff, Referring [...] 0, 0, 09/30/08 1:50:01, Print VIDYA Number, [id number], Constant Indicator Start Date: 09/30/08 Status: Ordered atorvastatin 20 mg oral tablet 1 tablet = 20 mg, By Mouth, Daily, 0 Refills, Maintenance Start Date: 03/04/19 Status: Ordered gabapentin 100 mg oral capsule 100 mg, 1, capsule, By Mouth, 3 times a day, # 42 capsule, Refills 0, Tot. Refills 0, Maintenance, 07/02/20 18:12:00 EDT, Route to Pharmacy Electronically, [id number], 191, cm, 07/02/20 17:32:00 EDT, Height, 110.4, kg, 07/02/20 17:32:00 EDT... Start Date: 07/02/20 Stop Date: 07/16/20 Status: Ordered Humalog 100 u/ml subcutaneous injection [...] Status: Ordered lisinopril 20 mg oral tablet .25 tab, By Mouth, Daily at bedtime, Refills 0, [...] Exam Date Time Procedure Performing Provider Status 07/02/20 6:22 PM Foot Min 3 Views Left [facility] (Verified) Notes: (Foot Min 3 Views Left) Reason For Exam: Pain RESULT: Foot Min 3 Views Left Foot Min 3 Views Left, 3 views Hx of Present Illness: Pt states developed top of left foot pain yesterday without trauma.; Reason:Pain; Clinical Question(s): Fracture; You have diabetic neuropathy. Worsening pain in foot. COMPARISON: 05/02/2020 FINDINGS: No fractures or bone lesions. Mild degenerative change with dorsal spurring. Tiny calcaneal heel spur. Vascular calcifications. IMPRESSION: No acute abnormality. WSN: [id number] Ordering Physician: Joey Rangel Dictated By: Adin Mora MD Dictated Date/Time: 07/02/20 6:27 pm Reviewed By: Adin Mora MD Signed By: Adin Mora MD Signed Date/Time: 07/02/20 6:27 pm Transcribed By: TASNEEM Transcribed Date/Time: 07/02/20 6:25 pm Vital Signs Most recent to oldest [Reference Range]: 1 Height 191 cm (07/02/20 5:32 PM) Weight 110.4 kg (07/02/20 5:32 PM) Oxygen Saturation [94-100 %] 98 % (07/02/20 5:32 PM) Pulse Rate [55-90 bpm] 86 bpm (07/02/20 5:32 PM) Blood Pressure [90-138/55-84 mm Hg] 142/ 65mm Hg *H* (07/02/20 5:32 PM) Respiratory Rate [16-30 br/min] 17 br/mi n (07/02/20 5:32 PM) Temperature [96.8-100.4 DegF] 97.6 DegF (07/02/20 5:32 PM) Blood pressure sites Arm, left (07/02/20 5:32 PM) Temperature Route Temporal (07/02/20 5:32 PM) Dry Weight 110.4 kg (07/02/20 5:32 PM) Weight Obtained Via Standing scale (07/02/20 5:32 PM) Dry Weight Obtained Via Standing scale (07/02/20 5:32 PM) Social History Social History Type Response Smoking Status Never smoker; Tobacc o user in household: No entered on: 04/16/15 Sex
--- OUTSIDE RECORDS SUMMARY | 2023-04-30 06:16 | XMS_ITS | Continuity of Care Document ---
Author Name Unknown Organization [facility] Address [address] [place] [address]- Care Team Providers Care Enterprise Cloud Architect Name Role Phone Tony Hinton MD Primary Care Physician [phone] [id number] Date(s): 10/01/22 - 01/29/[address] [address] Attending Physician: Meryl MORGAN, Frankie Christianson Referring [...] 3 Refills, Maintenance, 04/09/21 12:13:00 EDT, Tablet, [facility], Partial fill upon patient request if the prescription is for a schedule II opioid drug., 191, cm, 04/09/21 11:40:... Start Date: 04/09/21 Status: Ordered lisinopril 5 mg oral tablet 5 mg, 1, tablet, By Mouth, Daily, # 90 tablet, Refills 3, Tot. Refills 3, Maintenance, 09/08/22 15:10:00 EST, Route to Pharmacy Electronically, [facility], Partial fill upon patient request if the prescription is for a schedule... Start Date: 09/08/22 Stop Date: 09/03/23 Status: Ordered lisinopril 5 mg oral tablet 5 mg, 1, tablet, By Mouth, Daily, for 90 days, # 90 tablet, Refills 3, Tot. Refills 3, Hard Stop 08/22/23 9:20:00 EST, 08/27/22 9:20:00 EST, Route to Pharmacy Electronically, [id number], Partial fill upon patient request if the [...] 10/23/22 12:51:00 EST, Route to Pharmacy Electronically, [facility], Partial fill upon [...] 5 Refills, Maintenance, 01/26/23 9:26:00 EDT, Capsule, [id number], Partial fill upon patient request if the [...] Team Personnel Name: Tony Hinton MD Position: [facility] Physician (General Medicine) Member Role: PCP Address: Address: [address] [place] [address]- Name: Ese Whaley RN Position: [facility] RN Supv Member Role: Primary Care Nurse Name: Meenakshi Baca RN Position: [facility] RN Supv Member Role: Primary Care Nurse Name: Opal Obrien RN Position: [facility] RN Member Role: Primary Care Nurse Name: Paris Sanchez RN Position: [facility] RN Supv Member Role: Primary Care Nurse Name: Estephania Ruvalcaba Position: [facility] Outreach Member Role: Lifetime Consulting Physician Name: Lulú Hewitt RN Position: [facility] RN Member Role: Primary Care Nurse Name: Poornima Sanchez RN Position: [facility] RN Member Role: Primary Care Nurse Care Team Related Persons Name: MIC GREEN Address: [address] [address]
--- OUTSIDE RECORDS SUMMARY | 2023-04-30 06:16 | XMS_ITS | Continuity of Care Document ---
Author Name Unknown Organization [facility] Address [address] [place] [address]- Care Team Providers Care Signals Collection Technician Name Role Phone Tony Hinton MD Primary Care Physician [phone] Encounter [facility] Date(s): 02/25/23 - 03/27/[address] [address] Allergies, Adverse Reactions, Alerts Substance [...] 3 Refills, Maintenance, 04/09/21 12:13:00 EDT, Tablet, [facility], Partial fill upon patient request if the prescription is for a schedule II opioid drug., 191, cm, 04/09/21 11:40:... Start Date: 04/09/21 Status: Ordered isosorbide mononitrate 60 mg oral tablet, extended release 1 tablet = 60 mg, By Mouth, Daily in AM, # 90 tablet, 0 Refills, Maintenance, 03/02/23 15:07:00 EDT, ER Tablet, [facility], Partial fill upon patient request if the prescription is for a schedule II opioid drug., 190.5, cm, 03/02/23 14:42:0... Start Date: 03/02/23 Status: Ordered lisinopril 5 mg oral tablet 5 mg, 1, tablet, By Mouth, Daily, # 90 tablet, Refills 3, Tot. Refills 3, Maintenance, 09/08/22 15:10:00 EST, Route to Pharmacy Electronically, [facility], Partial fill upon patient request [...] 10/23/22 12:51:00 EST, Route to Pharmacy Electronically, [facility], Partial fill upon patient request [...] 5 Refills, Maintenance, 01/26/23 9:26:00 EDT, Capsule, [facility], Partial fill upon patient request if the [...] Team Personnel Name: Tony Hinton MD Position: [facility] Physician - Pediatrics Member Role: PCP Address: Address: [address] [place] [address]- [place] Name: Ese Whaley RN Position: S RN Supv Member Role: Primary Care Nurse Name: Meenakshi Baca RN Position: S RN Supv Member Role: Primary Care Nurse Name: Opal Obrien RN Position: S RN Member Role: Primary Care Nurse Name: Paris Sanchez RN Position: S RN Supv Member Role: Primary Care Nurse Name: Estephania Ruvalcaba Position: [facility] Outreach Member Role: Lifetime Consulting Physician Name: Lulú Hewitt RN Position: [facility] RN Member Role: Primary Care Nurse Name: Poornima Sanchez RN Position: [facility] RN Member Role: Primary Care Nurse Care Team Related Persons Name: MIC GREEN Address: [address] [address]
--- OUTSIDE RECORDS SUMMARY | 2023-04-30 06:16 | XMS_ITS | Continuity of Care Document ---
Author Name Unknown Organization [facility] Address [address] [place] [address]- Care Team Providers Care Assistant Plant Manager Name Role Phone Tony Hinton MD Primary Care Physician [phone] [id number] Date(s): 04/16/21 - 04/17/[address] [address]- Discharge Disposition: A-D/C Home Attending Physician: Abad Kline MD Admitting Physician: Abad Kline MD Referring Physician: Not on Staff, Referring [...] 04/26/21 6:55:00 EDT, 04/16/21 6:55:00 EDT, Tablet, [facility], Partial fill upon patient request if the prescription is for a schedule... Start Date: 04/16/21 Stop Date: 04/26/21 Status: Ordered Aspirin 81, mg, By Mouth, Daily, 0, 0, 09/30/08 1:50:01, Print VIDYA Number, [id number], Constant Indicator Start Date: 09/30/08 Status: Ordered gabapentin 100 mg oral capsule 100 mg, 1, capsule, By Mouth, 3 times a day, # 90 capsule, Refills 0, Tot. Refills 0, Maintenance, 04/16/21 6:55:00 EDT, Route to Pharmacy Electronically, [facility], Partial fill upon patient request if the prescription is for a schedule I... Start Date: 04/16/21 Status: Ordered gabapentin 100 mg oral capsule 100 mg, Capsule, By Mouth, 04/17/21 15:00:00 EDT Start Date: 04/17/21 Stop Date: 04/17/21 Status: Completed Humalog 100 u/ml subcutaneous injection See Instructions, [...] 04/16/21 6:55:00 EDT, Route to Pharmacy Electronically, [facility], Partial fill upon sil... [...] 04/21/21 6:55:00 EDT, 04/16/21 6:55:00 EDT, Cream, [facility], Partial fill upon patient [...] metoprolol 25 mg oral tablet, extended release 25 mg, XL Tablet, By Mouth, 04/17/21 9:00:00 EDT Start Date: 04/17/21 Stop Date: 04/17/21 Status: Completed One Touch Ultra 2 Glucose [...] 04/16/21 6:55:00 EDT, Route to Pharmacy Electronically, [facility], Partial fill upon patient... Start Date: 04/16/21 Stop Date: 04/19/21 Status: Ordered oxyCODONE 5 mg oral tablet 5 mg, Tablet, By Mouth, Every 6 hours, PRN for Pain , Severe, Routine, 04/16/21 23:01:00 EDT Start Date: 04/16/21 Stop Date: 04/18/21 Status: Discontinued Problem List Condition Effective Dates Status Health [...] Exam Date Time Procedure Performing Provider Status 04/17/21 4:57 AM Chest 2 Views Frontal and Lat Renée Jordan; Auth (Verified) Notes: (Chest 2 Views Frontal and Lat) Reason For Exam: Other: trauma RESULT: Chest 2 Views Frontal and Lat Chest 2 Views Frontal and Lat REASON: Trauma COMPARISON: CT chest and plain radiograph from 04/16/2021 FINDINGS: LUNGS AND PLEURA: Unchanged left basilar opacity. Normal pulmonary vascularity. No pleural effusion. No pneumothorax. HEART, MEDIASTINUM AND ROBERT: Heart is normal in size. Normal upper mediastinal and hilar contour. BONES AND SOFT TISSUES: Nondisplaced left fifth rib fracture. IMPRESSION: Unchanged left basilar opacity, likely atelectasis or contusion. No significant interval change. I have personally reviewed the images and I agree with this report. WSN: [id number] Ordering Physician: Nathanael Jordan Dictated By: Paul Shipley MD Dictated Date/Time: 04/17/21 9:05 am Reviewed By: Rishabh Daly MD, V Signed By: Rishabh Daly MD, V Signed Date/Time: 04/17/21 9:10 am Transcribed By: TASNEEM Transcribed Date/Time: 04/17/21 8:58 am * Exam Date Time Procedure Performing Provider Status 04/16/21 8:46 PM Chest 2 Views Frontal and Lat Denise Chiu; Auth (Verified) Notes: (Chest 2 Views Frontal and Lat) Reason For Exam: Traumatic Chest Pain;Other: RESULT: Chest 2 Views Frontal and Lat Chest 2 Views Frontal and Lat Hx of Present Illness: Fx 4 ribs and + stress test having pain started after fall. Told to come in by PCP; Reason: Other:; Traumatic Chest Pain; Clinical Question(s): Other:; Pneumothorax, Fracture COMPARISON: CT from earlier the same day FINDINGS: LINES AND TUBES: None. LUNGS AND PLEURA: Lung volumes are low. There is ongoing asymmetric opacity at left lung base adjacent to known rib fractures which is attributable to atelectasis from splinting. No pleural effusion. No pneumothorax. HEART, MEDIASTINUM AND ROBERT: Heart is normal in size. Normal upper mediastinal and hilar contour. BONES AND SOFT TISSUES: No acute abnormality. No rib fractures are less apparent on x-ray compared to CT. IMPRESSION: No pneumothorax or hemothorax. Ongoing atelectasis at left lung base adjacent to known lower left rib fractures. WSN: [id number] Ordering Physician: Lino Vela Dictated By: Santo Samayoa MD Dictated Date/Time: 04/16/21 8:51 pm Reviewed By: Santo Samayoa MD Signed By: Santo Samayoa MD Signed Date/Time: 04/16/21 8:51 pm Transcribed By: TASNEEM Transcribed Date/Time: 04/16/21 8:48 pm Vital Signs Most recent to oldest [Reference Range]: 1 2 3 Oxygen Saturation [94-100 %] 100 % (04/17/21 4:04 PM) 95 % (04/17/21 5:00 AM) 99 % (04/16/21 10:16 PM) Pulse Rate [55-90 bpm] 79 bpm (04/17/21 4:04 PM) 62 bpm (04/17/21 8:31 AM) 58 bpm (04/16/21 10:16 PM) Blood Pressure [90-138/55-84 mm Hg] 149/72mm Hg *H* (04/17/21 4:04 PM) 116/80mm Hg (04/17/21 8:31 AM) 127/67mm Hg (04/17/21 5:00 AM) Respiratory Rate [16-30 br/min] 20 br/min (04/17/21 4:19 PM) 20 br/min (04/17/21 4:19 PM) 23 br/min (04/17/21 4:04 PM) Temperature [96.8-100.4 DegF] 97.7 DegF (04/17/21 4:04 PM) 97.6 DegF (04/16/21 7:53 PM) Mode of Delivery (Oxygen) Room air (04/17/21 4:04 PM) Room air (04/17/21 5:00 AM) Room air (04/16/21 10:16 PM) Blood pressure sites Arm, left (04/17/21 4:04 PM) Temperature Route Oral (04/17/21 4:04 PM) Oral (04/16/21 7:53 PM) Social History Social History Type Response Smoking Status Never smoker; Tobacc o user in household: No entered on: 04/16/15 Sex
--- OUTSIDE RECORDS SUMMARY | 2023-04-30 06:16 | XMS_ITS | Continuity of Care Document ---
Author Name Unknown Organization [facility] Address [address] [place] [address]- Care Team Providers Care Manager Ecommerce Name Role Phone Tony Hinton MD Primary Care Physician [phone] Encounter [facility] NBR [id number] Date(s): 04/09/21 - 05/09/[address] [address] Attending Physician: Keli Chambers Admitting Physician: AdmtrKeli Referring Physician: Admtr ArRamiro Allergies, Adverse Reactions, Alerts Substance Reaction Severity [...] 0, 0, 09/30/08 1:50:01, Print VIDYA Number, [id number], Constant Indicator Start Date: 09/30/08 Status: Ordered gabapentin 100 mg oral capsule 100 mg, 1, capsule, By Mouth, 3 times a day, # 90 capsule, Refills 0, Tot. Refills 0, Maintenance, 04/16/21 6:55:00 EDT, Route to Pharmacy Electronically, [facility], Partial fill upon patient request if the [...]
--- OUTSIDE RECORDS SUMMARY | 2023-04-30 06:16 | XMS_ITS | Continuity of Care Document ---
Author Name Unknown Organization [facility] Address [address] [place] [address]- Care Team Providers Care Boat Canvas Maker Installer Name Role Phone Tony Hinton MD Primary Care Physician Encounter [facility] Date(s): 02/25/22 - 03/30/[address] [address]- Attending Physician: Brittnee Alfaro NP Admitting Physician: Brittnee Alfaro NP Referring Physician: Brittnee Alfaro NP Allergies, Adverse Reactions, Alerts Substance Reaction Severity [...]
--- OUTSIDE RECORDS SUMMARY | 2023-04-30 06:16 | XMS_ITS | Continuity of Care Document ---
Author Name Unknown Organization [facility] Address [address] [place] [address]- Care Team Providers Care Special Education Kindergarten Teacher Name Role Phone Tony Hinton MD Primary Care Physician [phone] Encounter [facility] Date(s): 02/20/22 - 03/22/[address] [address] Allergies, Adverse Reactions, Alerts Substance Reaction Severity [...]
[2023-04-30] MEDS: Lactated Ringers 1,000 ML 50 ML IVCONT (06:37)
[2023-04-30 06:38] LABS: Glucose, Whole Blood 175 mg/dL (60-115)
[2023-04-30] MEDS: methocarbamoL 750 MG TABLET PO (07:03)
[2023-04-30] MEDS: Gabapentin 300 MG CAPSULE PO (07:03)
--- NOTE | 2023-04-30 07:07 | P.DS_ITS ---
DS: Providers Provider Date of Service: 04/30/23 Primary care physician: Tony Hinton MD DS: Diagnosis Discharge Diagnosis (1) Lumbar stenosis with neurogenic claudication: Start date: 04/30/23 Status: Acute DS: Summary Time Spent with Patient Time attestation: Total time managing care of this patient today ____ minutes. Discharge coordination time: Less than 30 minutes Quality: Safe Use of Opioids Does Pt have an Active Cancer Diagnosis on the Problem List?: No Quality: Stroke Does the patient have a stroke diagnosis?: No Physical Exam Vital Signs: Vital Signs: Last Vital Signs Temp 98.1 F 04/30/23 06:20 Pulse 72 04/30/23 06:20 Resp 18 04/30/23 06:20 BP 156/88 H 04/30/23 06:45 Pulse Ox 99 04/30/23 06:20 O2 Del Method Room Air 04/30/23 06:20 BMI result Body Mass Index 30.7 DS: Data Data Completed and Pending Labs on day of discharge: Laboratory Results - last 24 hr 04/30/23 06:32 POC Glucose 175 H Discharge Plan Discharge Patient Disposition: Home, Self-Care Referrals: Tony Hinton MD [Primary Care Provider] - 1 Week Discharge Medications: New hydromorphone [Dilaudid] 2 mg tablet 2 mg PO Q6H Qty: 20 0RF Rx Instructions: Partial Fill upon patient request. sulfamethoxazole-trimethoprim [Bactrim DS] 800-160 mg tablet 1 tab PO BID Qty: 6 0RF No Action atorvastatin 40 mg tablet 40 mg PO BEDTIME metoprolol succinate 50 mg tablet extended release 24 hr 50 mg PO DAILY aspirin 81 mg Tablet,Delayed Release (Dr/Ec) 81 mg PO DAILY cholecalciferol (vitamin D3) [Vitamin D3] 50 mcg (2,000 unit) Capsule 50 mcg PO DAILY insulin degludec [Tresiba U-100 Insulin] 100 unit/mL solution 40 unit subcut DAILY Ozempic 0.25 mg or 0.5 mg (2 mg/3 mL) pen injector 0.25 mg subcut QWEEK Patient Comments: takes every Thursday metformin 1,000 mg tablet 1,000 mg PO BID Discharge Orders: Discharge Order (Routine); Ordered 04/30/23 Ordered By: Christiano Bautista Diet: Advance to usual diet Activity on Discharge: As tolerated Activity Restrictions/Additional Instructions: After your spinal surgery we ask you to observe the following restrictions/guidelines: Activity: It is normal to feel some discomfort as you increase your activity, but that will improve with time. We ask you avoid heavy lifting or acitivities that cause pain. As a general rule, 8lbs is a safe limit for lifting right after surgery. Walk as much as you feel comfortable but not to exhaustion. You will feel extra tired the first few days after surgery. Stay well hydrated. It is OK to walk up and down stairs You may return to driving when you are off narcotics (such as vicodin, oxycodone, dilaudid, etc), and you are back to normal functional capacity. If you have any concerns please check with office before driving. Return to work is specific to each patient and each surgery, so please speak with your doctor/PA at first follow up. Please bring paperwork such as FMLA at that time if you need it filled out. Medications: We will give you a short supply of narcotics after surgery (usually one weeks worth). If you need more please call the office but do not use more than pre scribed. You will need to give our office 48 hours notice if you need narcotics refilled and we do not fill narcotics on weekends or evenings. If you are on a narcotic, it is a good idea to take a stool softener such as colace or senna to avoid constipation If you take blood thinner such as aspirin, Plavix, Coumadin, Effient, Eliquis etc for conditions such as Afib, DVT, Pulmonary embolus, coronary disease, stents etc please speak with your surgeon about specific details as to when you can resume these medications. You can resume NSAIDs on post op day 1 (eg: Motrin, Naproxen, etc). Follow up: Please call the office, , after surgery to arrange a 3 week follow up for wound check. Wound Care: You may remove your dressing on the first day after surgery. You may leave open to air. Please do not remove the steri strips underneath. they will fall off on their own in one week. IT IS NORMAL FOR THE WOUND TO OOZE OR BE BLOODY FOR A FEW DAYS AFTER SURGERY. IF THIS HAPPENS JUST PLACE NEW DRESSING OVER IT TO AVOID STAINING CLOTHES. You may shower on post op day # 1 We ask that you do not let the water soak the wound. If it does get wet, just towel dry lightly. Please do not scrub your incision or place any type of chemical/ointment on the wound. No tub baths, pools or jacuzzis for one month. If you have any leaking or redness from your wound, or fevers, please call office
--- NOTE | 2023-04-30 07:13 | MHC.SHP ---
Pre-Procedural Eval Section A Date of Service: 04/30/23 The patient is an INPATIENT: No The History & Physical has been completed within 30 days and I have reviewed it.: Yes Section B Chief Complaint: Spinal stenosis, lumbar region with neurogenic cla Relevant Family History (Specify if Yes): No Allergies: Allergies Allergy/AdvReac Type Severity Reaction Status Date / Time dulaglutide [From Trulicity] Allergy Intermediate Nausea and Verified 04/30/23 06:46 Vomiting rosuvastatin [From Crestor] Allergy Muscle Pain Verified 04/30/23 06:47 simvastatin Allergy Muscle Pain Verified 04/30/23 06:47 Review of Systems Sugical H&P ROS: Negative: Constitution, Cardiovascular, Respiratory, Neurological, Psychiatric, Hem-Onc, Allergic/Immunologic, Gastrointestinal, Genitourinary, Musculoskeletal, Integumentary, Endocrine and Eyes/Ears/Nose/Throat Exam Surgical H&P Exam: Not Evaluated: HEENT, Not Evaluated: Heart, Not Evaluated: Lungs, Not Evaluated: Extremities, Not Evaluated: Abdomen, Not Evaluated: Skin and Not Evaluated: Neurological Plan Diagnosis/Plan: Unchanged I have reviewed the history and physical and performed a pertinent physical examination on my patient. No changes have occurred unless specified. L 4-5 Decompression w/ Coflex Time Spent With Patient Time: Total time managing care of this patient today ___10_ minutes.
--- NOTE | 2023-04-30 08:00 | P.CONAN_ITS ---
[facility] Active Problems Active Problems: All Active Problems (Updated 04/20/23 @ 12:24 by Baylee Hinton RN) Lumbar stenosis with neurogenic claudication (Acute) Past Medical History Medical History Bilateral hip pain CAD (coronary artery disease) Carpal tunnel syndrome CKD (chronic kidney disease) Diabetes Habitual snoring HLD (hyperlipidemia) HTN (hypertension) Obesity, Class I, BMI 30.0-34.9 (see actual BMI) On beta yesenia at home Peripheral autonomic neuropathy Prostate cancer Sexual dysfunction, unspecified Trigger finger, right ring finger Vertigo Family History Family history of problems with anesthesia: No Surgical History Surgical History H/O colonoscopy History of carpal tunnel surgery of left wrist History of surgery on left wrist Hx of adenoidectomy Hx of CABG Hx of elbow surgery Hx of left knee surgery Hx of prostatectomy Hx of right knee surgery Hx of tonsillectomy History of Problems with Anesthesia: No Social History Social History Are you a primary transitional care nurse to a significant other at home: No Do you presently have visiting nurse or other home services: No Patient Tobacco Use Status: Never used Tobacco Use of substances other than those prescribed or required for medical reasons: No Have you been hit, kicked, punched, or otherwise hurt by someone within the past year? If so, by whom?: No Are you DNR?: No Advance Directives: No Advance Directives Information Provided: Yes Advance Directives on File: No Recently lost weight without trying: Yes How much weight loss: 14-23 pounds Eating poorly because of decreased appetite: No Nutrition screen score: 4 Nutrition Risks: No Nutritional Risk Poor oral hygiene: Yes (crowns) Meds Allergies Allergy/AdvReac Type Severity Reaction Status Date / Time dulaglutide [From Trulicity] Allergy Intermediate Nausea and Verified 04/30/23 06:46 Vomiting rosuvastatin [From Crestor] Allergy Muscle Pain Verified 04/30/23 06:47 simvastatin Allergy Muscle Pain Verified 04/30/23 06:47 Active Medications: Current Medications Lactated Ringer's (Lr) 1,000 mls @ 50 mls/hr IVCONT .Q20H CHRIS Last Admin: 04/30/23 06:37 Dose: 50 mls/hr Home Medications Medication Instructions Recorded Confirmed Last Taken Type metformin 1,000 mg tablet 1,000 mg PO BID 01/20/23 04/17/23 Unknown History aspirin 81 mg tablet,delayed 81 mg PO DAILY 04/17/23 04/17/23 Unknown History release atorvastatin 40 mg tablet 40 mg PO BEDTIME 04/17/23 04/20/23 Unknown History cholecalciferol (vitamin D3) 50 50 mcg PO DAILY 04/17/23 04/17/23 Unknown History mcg (2,000 unit) capsule (Vitamin D3) insulin degludec 100 unit/mL 40 unit subcut DAILY 04/17/23 04/20/23 Unknown History subcutaneous solution (Tresiba U-100 Insulin) metoprolol succinate 50 mg 50 mg PO DAILY 04/17/23 04/17/23 Unknown History tablet,extended release 24 hr semaglutide 0.25 mg or 0.5 mg (2 0.25 mg subcut QWEEK 04/20/23 04/20/23 Unknown History mg/3 mL) subcutaneous pen injector (Ozempic) Exam Exam Date and Time: April 30, 2023 0800 Height,Weight and Vital Signs: Height 6 ft 3 in Weight 111.584 kg Last Vital Signs Temp 98.1 F 04/30/23 06:20 Pulse 72 04/30/23 06:20 Resp 18 04/30/23 06:20 BP 156/88 H 04/30/23 06:45 Pulse Ox 99 04/30/23 06:20 O2 Del Method Room Air 04/30/23 06:20 Pertinent Lab Results Pertinent Lab Results: Laboratory Tests 04/20/23 04/20/23 04/20/23 13:48 13:48 13:48 WBC 6.9 RBC 4.44 L Hgb 13.4 L Hct 39.9 L MCV 89.9 MCH 30.2 MCHC 33.6 RDW 12.5 Plt Count 295 MPV 10.5 Absolute Nucleated RBC 0.000 Nucleated RBC % (auto) 0.0 Sodium 137 Potassium 4.5 Chloride 104 Carbon Dioxide 26 Anion Gap 12 BUN 19 H Creatinine 1.63 H Estim Creat Clear Calc 55.2 Estimated GFR 42 POC Glucose Random Glucose 170 H Estimat Average Glucose 151 Hemoglobin A1c % 6.9 Calcium 10.2 04/30/23 06:32 WBC RBC Hgb Hct MCV MCH MCHC RDW Plt Count MPV Absolute Nucleated RBC Nucleated RBC % (auto) Sodium Potassium Chloride Carbon Dioxide Anion Gap BUN Creatinine Estim Creat Clear Calc Estimated GFR POC Glucose 175 H Random Glucose Estimat Average Glucose Hemoglobin A1c % Calcium Airway Mallampati Class: IV TM Dist: >3cm Neck ROM: Limited Loose/Missing/Broken Teeth: No Heart: cta Lungs: rrr Assessment and Plan Final Anesthetic Review Family History of Problems with Anesthesia: No History of Problems with Anesthesia: No ASA Class: III Final Preanesthetic Review: No Changes in Pt Med Stat, Meds/Allgs Chart Reviewed, Consent Obtained/Reviewed and Anes Risks/Benef Reviewed Patient Risk: Intermediate Procedure Risk: Intermediate Anesthetic Plan Anesthetic Plan: GA and Agree w/ Assess. and Plan Disposition: Standard PACU
--- NOTE | 2023-04-30 09:03 | W.PM.OPN ---
Operative Note Operative Note Date of Service: 04/30/23 Narrative: Preoperative Diagnosis: L4-5spinal stenosis with back pain Operation: L4-5 Laminotomy, Partial facetectomy and foraminotomy with use of microscope; insertion CoFlex device Consent Informed Consent was obtained for this operation. I have explained the nature, purpose and benefits of the operation. I have discussed the risks and benefit of the operation including possible complications or adverse events with patient/family. Alternative(s) were discussed with the patient with their relative benefits and risks as well as the consequences of not accepting the operation were included in obtaining consent. Surgeon: NATALY WILLARD MD, PHD Procedure Assisted By: Christiano Bautista PA-C Description of Procedure This patient suffer from back pain with walking and standing. The MRI shows moderate L4-5 spinal stenosis. He was offered a lumbar decompression and insertion of a CoFlex an attempt to address his back pain related to spinal stenosis. The procedure complications were explained. The patient was consented. The patient was brought to the operating room and endotracheally intubated. The patient was turned in prone position on the Deondre frame. Prep and drape was done followed by timeout. The Physician assistant branch operations manager provided access. A mid lumbar incision was made followed by release of the paravertebral muscle bilaterally to expose the L4-5 lamina and facet joints. An intraoperative x-ray was obtained to confirm the correct level. The interspinous ligament was resected to expose the interlaminar space.The microscope was brought in. I took over the procedure. The high-speed drill was used to do a L4-5 laminotomy until flavum ligament was reached. A # 3 Kerrison was used to expand the laminotomy near flush to the pedicles and to include a partial facetectomy. The flavum and was opened and resected with a 3. Kerrison to decompress the underlying thecal sac. The flavum ligament was removed from the lateral recess to decompress the exiting L5 nerve roots bilaterally. A long nerve hook could be easily passed along the medial side of the pedicles as a sign of adequate decompression. The microscope was removed. than a 12 mm CoFlex inter spinousdevice was inserted between L4 and L5. X-rays confirmed correct position. Hemostasis was done. The physician assistant branch operations manager close the Incision in 2 layers. Steri-Strips were used to approximate incision. An OpSite with Tegaderm was used to cover the incision. All sponge needle counts were correct. Patient was extubated and transported in stable is to recovery room. Anesthesia: General Estimated Blood Loss (ml): 20 mL Complications: None Duration of Surgery: Under 60 Minutes Postoperative Plan: Discharge to home
[2023-04-30] MEDS: Ondansetron ODT 4 MG TAB.RAPDIS TRANSLINGU (10:40)
--- NOTE | 2023-04-30 11:21 | PC.NURSE ---
patient stated nausea mostly resolved from previous state prior to zofran which was provided as ordered
== END 2023-04-30 11:00 | disposition home or self-care (01) ==
PROVIDERS: Nurse Practitioner; PCP Internal Medicine; Visit Provider Neurological Surgery
PROC: (CPT 63047; principal; 2023-04-30 07:30)
DX: M48.062 Spinal stenosis, lumbar region with neurogenic claudication (principal); M54.50 Low back pain, unspecified; I25.10 Atherosclerotic heart disease of native coronary artery without angina pectoris; E78.5 Hyperlipidemia, unspecified; G90.9 Disorder of the autonomic nervous system, unspecified; E11.22 Type 2 diabetes mellitus with diabetic chronic kidney disease; I12.9 Hypertensive chronic kidney disease with stage 1 through stage 4 chronic kidney disease, or unspecified chronic kidney disease; N18.9 Chronic kidney disease, unspecified; Z79.4 Long term (current) use of insulin; Z79.84 Long term (current) use of oral hypoglycemic drugs; Z79.82 Long term (current) use of aspirin; Z88.8 Allergy status to other drugs, medicaments and biological substances; Z79.899 Other long term (current) drug therapy
CPT/HCPCS: 63047; 36415; 80048; 82947; 83036; 85027; 93005; C1713; J0131; J0690; J1100; J1170; J1885; J2250; J2371; J2405

== ENCOUNTER → 2023-04-30 06:13 | Outpatient (BNV) | payer MEDICARE, SELFPAY | PROVIDERS: PCP Internal Medicine; Visit Provider Neurological Surgery | DX: M48.062 Spinal stenosis, lumbar region with neurogenic claudication (principal) | CPT/HCPCS: 22840; 63047 ==

== ENCOUNTER 2023-05-20 14:15 | Outpatient (AMB) | payer MEDICARE, SELFPAY ==
--- NOTE | 2023-05-20 14:57 | HO.SPINEOV ---
Intake Intake Visit Reasons: 1st post op Allergies dulaglutide [From Trulicity] Allergy (Intermediate, Verified 04/30/23 06:46) Nausea and Vomiting rosuvastatin [From Crestor] Allergy (Verified 04/30/23 06:47) Muscle Pain simvastatin Allergy (Verified 04/30/23 06:47) Muscle Pain Assessment & Plan Assessment & Plan (1) Status post lumbar spine surgery for decompression of spinal cord: Code(s): Z98.890 - Other specified postprocedural states Plan Dear colleague, On 05/20/2023, I saw for postoperative visit Roxane Ruiz. He underwent an L4-5 lumbar decompression and implantation of a CoFlex device for back pain with walking and standing. He is doing well. He is able to do walks and stand for prolonged periods of time without the previous back pain. On exam, the incision is healed. In summary, the patient is recovering according to plan. Would like to follow up in 6 weeks with an x-ray. Thank you for the referral. Chema Coffey MD, PhD Spine Fellowship Trained Neurosurgeon Director, [facility] [place] [facility] Coding Level of Care Code Global (54838) Diagnoses Status post lumbar spine surgery for decompression of spinal cord Z98.890
== END 2023-05-20 14:51 | disposition home or self-care (01) ==
PROVIDERS: PCP Internal Medicine; Visit Provider Neurological Surgery
DX: Z98.890 Other specified postprocedural states (principal)
CPT/HCPCS: 99024

== ENCOUNTER → 2023-05-20 14:15 | Outpatient (BNVA) | payer MEDICARE, SELFPAY | PROVIDERS: PCP Internal Medicine; Visit Provider Neurological Surgery ==

== ENCOUNTER 2023-06-30 16:23 | Outpatient (REF) | payer MEDICARE, SELFPAY | END 2023-06-30 16:24 | disposition home or self-care (01) | LOC: HO.HOSX 16:23 | PROVIDERS: Visit Provider Physician Assistant | DX: Z13.89 Encounter for screening for other disorder (principal) ==

== ENCOUNTER 2023-07-01 13:30 | Outpatient (AMB) | payer MEDICARE, SELFPAY ==
--- NOTE | 2023-07-01 14:04 | A.OFFVIS_ITS ---
Intake Intake Visit Reasons: 6 weeks f/up with xrays Intake Note: pt here for a 6 week follow up with X rays Media Production Support Manager Required: No Allergies dulaglutide [From Trulicity] Allergy (Intermediate, Verified 04/30/23 06:46) Nausea and Vomiting rosuvastatin [From Crestor] Allergy (Verified 04/30/23 06:47) Muscle Pain simvastatin Allergy (Verified 04/30/23 06:47) Muscle Pain PFSH Medical History Habitual snoring On beta yesenia at home Trigger finger, right ring finger Prostate cancer Vertigo Sexual dysfunction, unspecified Peripheral autonomic neuropathy Obesity, Class I, BMI 30.0-34.9 (see actual BMI) Bilateral hip pain Carpal tunnel syndrome CKD (chronic kidney disease) HLD (hyperlipidemia) HTN (hypertension) Diabetes CAD (coronary artery disease) Surgical History (Updated 05/20/23 @ 15:00 by Chema Cfofey MD, PhD) History of carpal tunnel surgery of left wrist History of surgery on left wrist Hx of elbow surgery Hx of adenoidectomy H/O colonoscopy Hx of prostatectomy Hx of tonsillectomy Hx of right knee surgery Hx of left knee surgery Hx of CABG Social History Are you a primary home care and home health aides teacher to a significant other at home: No Do you presently have visiting nurse or other home services: No Patient Tobacco Use Status: Never used Tobacco Assessment & Plan Assessment & Plan (1) Status post lumbar spine surgery for decompression of spinal cord: Code(s): Z98.890 - Other specified postprocedural states Plan Dear colleague: On 07/01/2023 I saw final postoperative visit your patient Roxane Ruiz. He underwent a L4-5 lumbar decompression and implantation of Coflex device for n eurogenic claudication. He responded well to surgery. He is able to ambulate long distances without having to sit down. Today's x-ray shows good position of the implant. I discharged him from further follow-up. Thank you for letting me take care of your patient. Chema Coffey MD, PhD Spine Fellowship Trained Neurosurgeon Director, [facility] [place] [facility] Orders: Orders XR lumbar spine 4V min Today Z98.890 - Other specified postprocedural states Coding Level of Care Code Est Pt Level 2 (28521) Diagnoses Status post lumbar spine surgery for decompression of spinal cord Z98.890
== END 2023-07-01 14:20 | disposition home or self-care (01) ==
PROVIDERS: PCP Internal Medicine; Visit Provider Neurological Surgery
DX: Z98.890 Other specified postprocedural states (principal)
CPT/HCPCS: 99024

== ENCOUNTER → 2023-07-01 13:30 | Outpatient (BNVA) | payer MEDICARE, SELFPAY | PROVIDERS: PCP Internal Medicine; Visit Provider Neurological Surgery | DX: Z98.890 Other specified postprocedural states (principal) ==

== ENCOUNTER 2023-07-01 13:42 | Outpatient (REF) | payer MEDICARE, SELFPAY | END 2023-07-01 13:43 | disposition home or self-care (01) | LOC: HO.HOSX 13:42 | PROVIDERS: Visit Provider Neurological Surgery | DX: Z48.89 Encounter for other specified surgical aftercare (principal) | CPT/HCPCS: 72110; 99212 ==

== ENCOUNTER 2025-06-09 14:04 | Outpatient (AMB) | payer MEDICARE, SELFPAY ==
--- OUTSIDE RECORDS SUMMARY | 2025-06-05 16:51 | XMS_ITS | Encounter Summary ---
Author Organization [facility] Address [address] [place] [id number] Phone Care Team Providers Care Sprinkler Installer Name Role Phone Tony Hinton MD Primary Care Provid er Reason for Visit * Reason Comments Dizziness * Auth/Cert (Routine) Specialty Diagnoses / Procedures Referred By Contac t Referred To Contact Diagnoses Ataxia Referral ID Status Reason Start Date Expiration Date Visits Re quested Visits Authorized [id number] 1 1 Encounter Details Date Type Department Care Team (Latest Contact Info) Description 06/05/2025 4:51 PM EDT - 06/06/2025 6:43 PM EDT Hospital Encounter [facility] [address] [place] [address] Tory Stack MD [address] [place] [address] [email or web address] Elmira Rashid DO [address] [place] [address] [email or web address] Lorelei Barraza MD [address] [place] [address] [email or web address] Kemi Matias MD [address] [place] [address] Preliminary, Preliminary, PhD Discharge Disposition: Home or Self Care Social History Tobacco Use Types Packs/Day Years Used Date Smoking Tobacco: Never Smokeless Tobacco: Never Alcohol Use Standard Drinks/Week Comments Not Currently 0 (1 standard drink = 0.6 oz pur e alcohol) Education Answer Date Recorded Are you interested in more education? Not on florian e 08/12/2024 Are you concerned about learning? Not on file 08/12/2024 No 08/12/2024 No 08/12/2024 Food Answer Date Recorded Within the past 6 months we worried whether our food would run out before we got money to buy more. Never True 06/05/2025 Within the past 6 months the food we bought just didn't last and we didn't have enough money to get more. Never True Residential Stability Answer Date Recor ded What is your housing situation today? I have yeni sing 06/05/2025 How many times have you move d in the past 12 months? Zero (I did not move) 06/05/2025 Paying for Meds Answer Date Recorded Do you have trouble paying for medicines? No 06/05/2025 Paying Utility Bills Answer Date Record ed Do you have trouble paying your heating or elect ricity bill? No 06/05/2025 Transportation Answer Date Recorded Has the lack of transportati on kept you from medical appointments or from getting medications? No 06/05/2025 Digital Access Answer Date Recorded No 06/05/2025 Yes 06/05/2025 Do you have reliable internet access at home? Ye s 06/05/2025 Do you have a device (e.g., phone, tablet, computer) with a working camera? Yes 06/05/2025 Intimate Partner Violence Answer Date R ecorded Are you denied basic needs s uch as food, clothing, or medical care? No 06/05/2025 In the past 12 months have y ou been in a relationship with a person who hurts, threatens, or tries to control you? No 06/05/2025 Are you denied basic needs s uch as food, clothing, or medical care? No 06/05/2025 In the past 12 months have y ou been in a relationship with a person who hurts, threatens, or tries to control you? No 06/05/2025 Sex and Gender Information Value Date Recorded Sex Assigned at Male 08/12/2024 6:46 AM EST Legal Sex Male 10:36 PM EDT Gender Identity Male 08/12/2024 6:46 AM EST Sexual Orientation Straight 06/05/2025 12 :49 PM EDT documented as of this encounter Last Filed Vital Signs Vital Sign Reading Time Taken Comments Blood Pressure 137/69 06/06/2025 6:12 PM EDT Pulse 77 06/06/2025 6:12 PM EDT Temperature 36.5 C (97.7 F) 06/06/2025 6:12 PM EDT Respiratory Rate 16 06/06/2025 6:12 PM EDT Oxygen Saturation 97% 06/06/2025 6:12 PM EDT Inhaled Oxygen Concentration - - Weight 100.9 kg (222 lb 6.4 oz) 025 11:28 PM EDT Height 190.5 cm (6' 3 ) 06/05/2025 12:5 1 PM EDT Body Mass Index 27.8 06/05/2025 12:51 PM EDT documented in this encounter Functional Status * Calculated C-SSRS Risk Score (Lifetime/Recent) Answer Date of Assessment Author No Risk Indicated 06/05/2025 10:56 PM EDT Elena Puentes RN * [place] Suicide Severity Rating Scale (Screener/Recent Self-Report) Question Answer Date of Assessment Author 1. Wish to be (Past 1 Month) No 06/05/2025 10:56 PM EDT Elena Reyes RN 2. Non-Specific Active Suicidal Thoughts (Past 1 Month) No 06/05/2025 10:56 PM EDT Elena Reyes RN 6. Suicidal Behavior (Lifetime) No 06/05/2025 10:56 PM EDT Elena Reyes RN documented as of this encounter Discharge Summaries * Kemi Matias MD - 06/06/2025 5:26 PM EDT Images from the original note were not included. Physician Discharge Summary Admit date: 06/05/2025 Discharge date: 06/06/2025 Patient Information Roxane Ruiz, 75 y.o. male ( = 1950) Home Address: [address] [address] (home) Preferred Language: Persian Written Language: Persian Needs Sewage Screen Operator: No Type of Advance Care Directive(s): Health Care Proxy Does patient have a Health Care Proxy form completed?: HCP is NOT available, patient will complete a new one (form left at bedside) Health Care Agents There are no Health Care Agents on file. Code Status at Discharge: Full Code Expected Discharge Disposition: Home or Self Care Patient/Family/Caregiver discharge preference/goals : Home Patient/Family/Caregiver participated and agreed with DC plan: Yes Discharge address same as facesheet: Yes Historical information Reason for Admission Ataxia Principal Problem: Ataxia Active Problems: HTN (hypertension) DM2 (diabetes mellitus, type 2) CKD (chronic kidney disease) CAD (coronary artery disease) Chronic constipation Resolved Problems: * No resolved hospital problems. * Principal diagnosis at discharge: Ataxia Surgical (OR) Procedures: Surgeries this admission None Procedures this admission None Non (OR) Procedures: Pending Results None Hospital Course 75-year-old man with CAD status post CABG, diabetes, hypertension, hyperlipidemia, CKD, peripheral neuropathy, history of prostate cancer status post prostatectomy, presented to the ED with 10 days of ataxia. Symptoms began approximately 1-2 day after he was placed back on Toprol XL he had been on the medication previously and it was stopped because of dizziness. The patient woke over the weekendwith loss of balance, different from previous vertigo that he had experienced. He stopped taking the metoprolol but his symptoms persisted over the course of the week and he ultimately presented to the emergency department for further evaluation. On examination he was observed to be swaying to the left or right with walking, able to correct himself without falling. #1 Loss of balance/disequilibrium In the ED, CTA head and neck was performed showing mild bilateral plaque in the intracranial vessels and mild stenosis of the proximal left posterior cerebral artery and mild bilateral calcified plaques in the neck. ASA was continued and atorvastatin increased to 80 mg daily. Lipid profile showed a total cholesterol 126, HDL 47 and LDL of 40. On telemetry, he remained in a sinus rhythm. BP was also monitored. He had no hypotension or orthostatic symptoms. MRI brain showed small vessel disease, but no acute abnormality. His symptoms improved during the hospital course. He was seen by PT/OT and was able to ambulate 300feet without support. Unclear to what extent the beta-yesenia may have been a factor. He had experienced a similar reaction in the past, but this time symptoms lingered well beyond use of the medication. There may be a vestibular component. Consider follow-up with ENT if symptoms persist. #2 CAD with history of CABG in [address] Blackburn at [facility] cardiology and has an upcoming appointment. Medications Allergies: Metoprolol, Rosuvastatin, and Simvastatin Prior to Admission Medications Prescriptions LINZESS 72 mcg capsule Sig: Take 1 capsule by mouth every morning. NOVOLOG U-100 INSULIN ASPART 100 unit/mL injection vial Sig: INJECT 20 TO 40 UNITS SUBCUTANEOUSLY 3 TO 4 TIMESDAILY DIRECTED OZEMPIC 1 mg/dose (4 mg/3 mL) subcutaneous injection pen Sig: Inject 1 mg under the skin once a week. TRESIBA U-100 INSULIN injection vial Sig: Inject 40 Units under the skin daily. aspirin 81 MG EC tablet Sig: Take 81 mg by mouth daily. atorvastatin (LIPITOR) 40 MG tablet Sig: Take 40 mg by mouth daily. cholecalciferol-apoaequorin (PREVAGEN EXTRA STRENGTH) 50 mcg-20 mg Cap Sig: Take 1 capsule by mouth daily. metFORMIN (GLUCOPHAGE) 1000 MG tablet Sig: Take 1,000 mg by mouth 2 (two) times a day. metoprolol succinate (TOPROL-XL) 25 MG 24 hr tablet Sig: Take 25 mg by mouth nightly at bedtime. senna (SENOKOT) 8.6 mg tablet Sig: Take 2 tablets by mouth 2 (two) times a day. Facility-Administered Medications: None Medication List STOP taking these medications metoprolol succinate 25 MG 24 hr tablet Commonly known as: TOPROL-XL TAKE these medications Instructions aspirin 81 MG EC tablet Last time this was given: Ask your nurse or doctor Take 81 mg by mouth daily. atorvastatin 40 MG tablet Commonly known as: LIPITOR Last time this was given: June 06, 2025 12:27 AM Take 40 mg by mouth daily. cholecalciferol-apoaequorin 50 mcg-20 mg Cap Commonly known as: PREVAGEN EXTRA STRENGTH Take 1 capsule by mouth daily. Linzess 72 mcg capsule Generic drug: linaCLOtide Take 1 capsule by mouth every morning. metFORMIN 1000 MG tablet Commonly known as: GLUCOPHAGE Take 1,000 mg by mouth 2 (two) times a day. NovoLOG U-100 Insulin aspart 100 unit/mL injection vial Generic drug: insulin aspart U-100 INJECT 20 TO 40 UNITS SUBCUTANEOUSLY 3 TO 4 TIMESDAILY DIRECTED Ozempic 1 mg/dose (4 mg/3 mL) subcutaneous injection pen Generic drug: semaglutide Inject 1 mg under the skin once a week. senna 8.6 mg tablet Commonly known as: SENOKOT Last time this was given: June 06, 2025 9:06 AM Take 2 tablets by mouth 2 (two) times a day. Tresiba U-100 Insulin injection vial Generic drug: insulin degludec U-100 Inject 40 Units under the skin daily. Immunizations Administered for This Admission Name Date Influenza High-Dose Trivalent Preservative Free IM Deferred (Contraindication) Hospital Care Team Service: Medicine Inpatient Attending: Kemi Matias MD Attending phys phone: Discharge Unit: [id number] Primary Care Physician: Tony Hinton MD [phone] Transitional Plan Scheduled appointments: Signed Discharge Orders (From admission, onward) Ordered 06/06/25 172 Activity as tolerated 06/06/25 172 Discharge diet Comments: Diet Regular; Total carbohydrates: Consistent carbohydrate; Fat Restriction: Low fat (cardiac); Sodium Restriction: 2 GM NA 06/06/25 172 For immediate questions regarding your hospitalization, your medications, and any pending test results please contact your doctor in the hospital: Kemi Matias MD at . Comments: For immediate questions regarding your hospitalization, your medications, and any pendingtest results please contact your doctor in the hospital: Kemi Matias MD at . Discharge instructions and important events and results None Exam Temperature: 36.2 ??C (97.2 ??F) (06/06/25 155) Heart Rate: 74 (06/06/25 155) BP: 125/70 (06/06/25 155) Respiratory Rate: 16 (06/06/251554) SpO2: 97 % (06/06/251554) O2 Device: None (Room air) (06/06/251554) Weight: 100.9 kg (222 lb 6.4 oz) (06/05/252327) Height: 190.5 cm (6' 3 ) (06/05/25 1251) BMI (Calculated): 25.5 (06/05/25 1251) Orientation Level: Oriented X7 Cognition: Follows commands Speech: Clear Disability Identity and Disability Accommodations Comments Disability Identity No Data/Results Results are shown for the following tests if performed (CBC, Chem 7, Mg, Coag). If the patient did not have any of these tests, no results will be shown here. Lab Results Component Value Date/Time WBC 8.84 06/06/2025 0615 RBC 3.97 (L) 06/06/2025 0615 HGB 12.6 (L) 06/06/2025614 HCT 36.4 (L) 06/06/2025614 MCH 31.7 (H) 06/06/2025614 MCV 91.7 06/06/2025614 PLT 240 06/06/2025614 RDW 12.6 06/06/2025614 Lab Results Component Value Date/Time NA 137 06/06/202515 K 4.3 06/06/202515 CL 105 06/06/2025 0615 CO2 22 06/06/2025 0615 BUN 21 (H) 06/06/2025 0615 CRE 1.40 06/06/202515 CA 9.8 06/06/202515 GLU 159 (H) 06/06/2025 0615 GLUPOC 183 (H) 06/06/2025 1650 Lab Results Component Value Date/Time MG 1.8 06/06/2025 0615 Lab Results Component Value Date/Time PT 11.2 06/06/2025 0615 PTINR 0.9 06/06/2025 0615 PTT 29.8 06/06/2025 0615 MRI Brain Without Contrast Performed: 06/06/2025 at 4:40 PM Accession Number: [id number] Reason For Exam ataxia x10 days; * Neuro deficit, acute, stroke suspected Exam Images Show images for MRI Brain All Patient Images Show images for Roxane Ruiz Impression 1. Probable moderate chronic small vessel disease. No acute or subacute infarct. Kemi Matias MD Greater than 40 minutes spent patient care and discharge planning documented in this encounter Discharge Instructions * Discharge Instructions* Kemi Matias MD - 06/06/2025 5:29 PM EDT You were admitted to the hospital after developing unsteadiness symptoms that began after restarting a medication that you have taken in the past (metoprolol). Despite stopping the medication, your symptoms persisted and you were admitted for further evaluation.. An MRI brain did not show evidence of stroke or any worrisome findings. A CT head/neck did show atherosclerosis that can be a precursor to strokes. It will be important for you to follow-up with yourprimary care doctor and prevention rn for ongoing monitoring. If your symptoms fail to resolve or worsen, evaluation with an ENT specialist may be considered. Wedo recommend that you continue holding metoprolol as you have been doing. documented in this encounter Medications at Time of Discharge aspirin 81 MG EC tablet Take 81 mg by mouth daily. atorvastatin (LIPITOR) 40 MG tablet Take 40 mg by mouth daily. cholecalciferol-a poaequorin (PREVAGEN EXTRA STRENGTH) 50 mcg-20 mg Cap Take 1 capsule by mouth daily. LINZESS 72 mcg capsule Take 1 capsule by mouth every morning. 5 metFORMIN (GLUCOPHAGE) 1000 MG tablet Take 1,000 mg by mouth 2 (two) times a day. NOVOLOG U-100 INSULIN ASPART 100 unit/mL injection vial INJECT 20 TO 40 UNITS SUBCUTANEOUSLY 3 TO 4 TIMESDAILY DIRECTED 5 OZEMPIC 1 mg/dose (4 mg/3 mL) subcutaneous injection pen Inject 1 mg under the skin once a week. 5 senna (SENOKOT) 8.6 mg tablet Take 2 tablets by mouth 2 (two) times a day. TRESIBA U-100 INSULIN injection vial Inject 40 Units under the skin daily. 5 documented as of this encounter Progress Notes Only the most recent of 6 notes is shown. * Sarah Em RN - 06/06/2025 6:25 PM EDT Nursing Progress Note A&Ox4, VSS. Neuros intact. Pt reported feeling his gait was still unsteady. Was able to ambulate w/ standby assist. MRI completed this evening. Pt discharged home w/ to transport. AVS reviewed and pt's questions answered. documented in this encounter H&P Notes * Elmira Lechuga DO - 06/05/2025 11:49 PM EDT Hospital Medicine Admission History & Physical ? Patient: Roxane Ruiz : 1950 PCP: Tony Hinton MD Date of Admission: 06/05/2025 Chief Complaint/Reason for Admission: Chief Complaint Patient presents with Dizziness History of Present Illness: 75-year-old man with CAD status post CABG, diabetes, hypertension, hyperlipidemia, CKD, peripheral neuropathy, history of prostate cancer status post prostatectomy, presented to the ED with 10 days of ataxia. Patient reports that last month he went for a follow-up with cardiology to be evaluated for worsening dyspnea on exertion. He has had this previously but in 2020 symptoms significantly improved after CABG. Also in the past he has had issues with beta- yesenia with chronotropic incompetence.However on May 26 he was restarted on a low-dose of Toprol-XL as an antianginal. 1 to 2 days after he started taking the beta-yesenia patient developed difficulty ambulating. He reports that he fee ls he is leaning to either side while he is walking. He has had vertigo in the past and describes this as a different sensation. After several days of taking the beta-yesenia he discontinued it however his symptoms persist. He denies any other focal neurological deficits such as facial droop, slurred speech, unilateral weakness. He presented to the ED for further evaluation. He was found to have stable vital signs and labs that did not show any significant electrolyte abnormalities other than mild hypomagnesemia. CT head showed no acute pathology CTA head and neck showed mild plaques. ED discussed case with neurology and further workup with MRI was recommended. Patient will be placed in observation for further evaluation and treatment of ongoing ataxia. Medical History: Past Medical History: Diagnosis Date CAD (coronary artery disease) Chronic kidney disease DM2 (diabetes mellitus, type 2) History of prostate cancer HTN (hypertension) Hyperlipidemia Peripheral neuropathy Past Surgical History: Procedure Laterality Date CORONARY ARTERY BYPASS GRAFT 2020 KNEE ARTHROSCOPY W/ ACL RECONSTRUCTION PROSTATECTOMY Family History: Family History Problem Relation Age of Onset Bone cancer Mother COPD Father Leukemia Sister Throat cancer Sister Social History: Social History Socioeconomic History Marital status: /Civil Union Spouse name: Not on file Number of children: Not on file Years of education: Not on file Highest education level: Not on file Occupational History Not on file Tobacco Use Smoking status: Never Smokeless tobacco: Never Vaping Use Vaping status: never used Substance and Sexual Activity Alcohol use: Not Currently Drug use: Not Currently Sexual activity: Not Currently Partners: Female Other Topics Concern Not on file Social History Narrative Healthcare proxy is his and secondary is his son Social Drivers of Health Residential Stability: Low Risk (06/05/2025) Residential Stability Family situation today data: I have housing Number of times moved in last year: Zero (I did not move) Allergies: Allergies Allergen Reactions Metoprolol Other Reaction(s): Dizziness Rosuvastatin Other Reaction(s): muscle aches, fatigue Simvastatin Other Reaction(s): muscle aches, fatigue Medications: Prior to Admission medications Medication Sig aspirin 81 MG EC tablet 81 mg, Daily atorvastatin (LIPITOR) 40 MG tablet 40 mg, Daily cholecalciferol-apoaequorin (PREVAGEN EXTRA STRENGTH) 50 mcg-20 mg Cap 1 capsule, Daily LINZESS 72 mcg capsule 1 capsule, Every morning metFORMIN (GLUCOPHAGE) 1000 MG tablet 1,000 mg, 2 times daily metoprolol succinate (TOPROL-XL) 25 MG 24 hr tablet 25 mg, Nightly NOVOLOG U-100 INSULIN ASPART 100 unit/mL injection vial INJECT 20 TO 40 UNITS SUBCUTANEOUSLY 3 TO 4TIMESDAILY DIRECTED OZEMPIC 1 mg/dose (4 mg/3 mL) subcutaneous injection pen 1 mg, Weekly senna (SENOKOT) 8.6 mg tablet 2 tablets, 2 times daily TRESIBA U-100 INSULIN injection vial 40 Units, Daily Review of Systems: Review of Systems Constitutional: Negative for activity change, appetite change, chills and fever. Respiratory: Negative for shortness of breath. Cardiovascular: Negative for chest pain, palpitations and leg swelling. Gastrointestinal: Negative for abdominal pain, diarrhea, nausea and vomiting. Neurological: Negative for weakness. Musculoskeletal: Positive for gait problem. All others reviewed and negative. Physical Exam: Last vitals 36.6 ??C (97.8 ??F) P 70 BP 135/87 RR 14 SpO2 98 % FiO2 92.5 kg (204 lb) Physical Exam Vitals reviewed. Constitutional: General: He is not in acute distress. Appearance: He is not ill-appearing. HENT: Head: Normocephalic and atraumatic. Mouth/Throat: Mouth: Mucous membranes are moist. Eyes: Pupils: Pupils are equal, round, and reactive to light. Cardiovascular: Rate and Rhythm: Normal rate and regular rhythm. Pulses: Normal pulses. Heart sounds: Normal heart sounds. Pulmonary: Effort: Pulmonary effort is normal. No respiratory distress. Breath sounds: Normal breath sounds. Abdominal: General: Bowel sounds are normal. There is no distension. Palpations: Abdomen is soft. Tenderness: There is no abdominal tenderness. Musculoskeletal: General: No swelling. Normal range of motion. Cervical back: Normal range of motion and neck supple. Skin: General: Skin is warm and dry. Neurological: Mental Status: He is alert and oriented to person, place, and time. Comments: Leaning to either side while walking Psychiatric: Mood and Affect: Mood normal. Labs: Data/Results: CBC: 8.16 \ 13.5 / 274 / 39.8* \ 06/05 1307 BMP: 135 105 21* / 189* 4.1 19* 1.60* \ 06/05 1307 Coagulation: Lab Results Component Value Date/Time PT 11.3 06/05/2025 1819 PTINR 0.9 06/05/2025 181 Cardiac markers: Troponin 29, 28 Other: Lab Results Component Value Date/Time ESR 9 06/05/2025 181 Diagnostics: EKG and or monitor strips have been reviewed and are significant for sinus tachycardia Imaging Results: Radiology reviewed and significant for: CT head showed no acute pathology, CTA head and neck showedmild plaques Please see radiology results for full report Assessment & Plan: 75-year-old man with CAD status post CABG, diabetes, hypertension, hyperlipidemia, CKD, peripheral neuropathy, presented to the ED with 10 days of ataxia Assessment & Plan Ataxia -Patient presented with ataxia for the past 10 days. On May 26 he was prescribed a low-dose of metoprolol after he was seen by cardiology for dyspnea on exertion evaluation. He has had chronotropic incompetence on 100mg of metoprolol succinate in the past but it was felt that he may tolerate 25 mg as an antianginal. 1 to 2 days after starting the beta-yesenia patient began to have difficulty ambulating. He felt he was leaning to the side while walking. He has had vertigo in the past and reports that this felt different. He denied any other focal neurological deficits such as slurred speechor facial droop or unilateral weakness. Symptoms have been ongoing for about 10 days but are now slightly improved -CT head showed no acute pathology and CTA head and neck showed mild plaques -Follow up MRI brain -Will discuss with tele neuro once imaging results available -Monitor on tele -PT/OT eval -CUSTOMER SERVICE ATTENDANT eval deferred as he has no speech or swallowing issue at this time -Follow up HbA1c, TSH, ESR, CRP, lipid panel -Start high-dose statin and continue aspirin. Patient is not currently on Plavix as was documented in the neurology note HTN (hypertension) - In the past patient was on amlodipine and lisinopril, however he reports that his prevention rn discontinued these medications earlier in the year - Hold the metoprolol for permissive hypertension DM2 (diabetes mellitus, type 2) -Continue basal insulin, decrease dose slightly as switching from Tresiba to Lantus -Hold metformin as he just had CTA head and neck -Ozempic is nonformulary and he takes this on Sundays -Monitor point of care, cover with insulin sliding scale as needed -Hemoglobin A1c 7.2 CAD (coronary artery disease) - Denies any chest pain, continue aspirin and statin CKD (chronic kidney disease) - Creatinine at baseline Chronic constipation - Linzess is nonformulary, continue senna Diet: Diet Regular; Total carbohydrates: Consistent carbohydrate; Fat Restriction: Low fat (cardiac); Sodium Restriction: 2 GM NA DVT Prophylaxis: SQ LMW Heparin Code Status: Full Code I personally spent a total of 75 minutes on the date of this encounter, including face to face timeand non-face time. This includes time spent on work such as documentation, chart review and care coordination. I have placed the patient in OBSERVATION STATUS for further monitoring of: Quality Clinical Documentation: Hypomagnesemia (Present on Admission) . Monitoring . Magnesium of 1.5 on 06/05/2025 Signed: Elmira Lechuga DO June 05, 2025 11:49 PM documented in this encounter Consult Notes * Krish Schulte MD - 06/05/2025 8:45 PM EDTAssociated Order(s): IP CONSULT TO [facility] [place] NOTE Date: 06/05/2025 This patient visit was conducted by phone with the responding clinician after records were reviewedin details and all pertinent information was provided by the consulting clinician. This consult wasconducted virtually using HIPAA compliant phone and or videoconferencing technology. Patient Information: Roxane Ruiz [id number] 75 y.o.male Requesting service: ED Reason for consult: Dizziness, unsteady gait HPI 75 y.o. with HTN, HL, DM, CKD who presents with unsteady gait. He was recently started on metoprolol by cardiology. Took first dose on Thursday night on 05/26. Thursday morning, he woke up and was not feeling great, unsteady on his feet. Monday 05/28, got progressively worse-unsteady on his feet, falling backwards, stopped metoprolol. But his unsteady gait, imbalance has continued. No vertigo, lightheadedness, symptoms not positional. BP's have been normal- even taking BPs at home, SBP 150s, never became hypotensive as far as they know. Also takes Quadmix for erectile dysfunction- took last week and this morning. On exam, no ataxia on finger to nose or heel to webber but he is unsteady on his feet, swaying when walking. Medications Current Facility-Administered Medications Medication ??? sodium chloride (NS) 0.9 % syringe flush 3 mL Current Outpatient Medications Medication Sig Dispense Refill ??? erythromycin (ROMYCIN) ophthalmic ointment Place 0.5 inches into each eye nightly at bedtime. 3.5 g 0 Infusions Medications PRN sodium chloride Allergies Allergen Reactions ??? Metoprolol Other Reaction(s): Dizziness ??? Rosuvastatin Other Reaction(s): muscle aches, fatigue ??? Simvastatin Other Reaction(s): muscle aches, fatigue Exam Vital Signs: Temperature: [35.8 ??C (96.4 ??F)-36.1 ??C (97 ??F)] 35.8 ??C (96.4 ??F) Heart Rate: [72-91] 73 Respiratory Rate: [16-17] 17 BP: (131-154)/(73-79) 143/73 No intake or output data in the 24 hours ending 06/05/252044 Labs CBC: Lab Results Component Value Date/Time WBC 8.16 06/05/2025 1307 RBC 4.26 (L) 06/05/2025 1307 HGB 13.5 06/05/2025 1307 HCT 39.8 (L) 06/05/2025 1307 MCH 31.7 (H) 06/05/2025 1307 MCV 93.4 06/05/2025 1307 PLT 274 06/05/2025 1307 RDW 12.5 06/05/2025 1307 BMP: Lab Results Component Value Date/Time NA 135 06/05/2025 1307 K 4.1 06/05/2025 1307 CL 105 06/05/2025 1307 CO2 19 (L) 06/05/2025 1307 BUN 21 (H) 06/05/2025 1307 CRE 1.60 (H) 06/05/2025 1307 CA 10.0 06/05/2025 1307 GLU 189 (H) 06/05/2025 1307 GLUPOC 120 (H) 06/05/2025 1829 Coagulation: Lab Results Component Value Date/Time PT 11.3 06/05/2025 181 PTINR 0.9 06/05/[address]/ CTA H/N 06/05/2025 1. No acute intracranial findings on noncontrast head CT. 2. Mild bilateral calcified plaque of the intracranial vessels. Mild stenosis of the proximal left posterior cerebral artery. No occlusion. 3. Mild bilateral calcified plaque of the neck. No significant stenosis of the neck vessels. Assessment/ Neurological Diagnosis: Unsteady gait x 10 day duration- lack of lightheadedness, dizziness, positional nature and normal BP's suggests against hypotension secondary to medication. He has multiple vascular risk factors so warrants further imaging Recommendations: MRI brain to evaluate for stroke He is already on DAPT, no change in antiplatelet medication warranted at this time. If MRI brain shows evidence of stroke, can expand stroke work-up to include 30- day cardiac event monitor, TTE. He already has vessel imaging. Lipid panel to inform anti-cholesterol med agent Thank for your consult, please re-consult teleneurology if additional questions or if a follow up is needed. Krish Schulte MD MSc Neurology Attending [facility] P[place] [phone] documented in this encounter ED Notes * Elena Reyes RN - 06/05/2025 10:57 PM EDT ED Admission Nursing Note ED RN Handoff (All Akhtar Below Must Be Completed) Reason for Admission: Ataxia Diagnosis: Type of Admission: []MedSurg [x]Telemetry []Remote Room Considerations/Precautions (ex.fever, cough, diarrhea,or any infectious process): Technical Program Manager: [x]Yes []No If yes, Cardiac Rhythm:NSR Reason for Technical Program Manager: Observation Current Mental Status: Alert and oreinted X4 Current Ambulation Status: Independent IV Access: [x]Yes []No Field IV Present: []Yes [x]No History of Violence: []Yes [x]No []Unknown Fall Risk: []Yes [x]No Patient belongings inventoried []Yes [x]No Patient belongings stored in the Security closet []Yes [x]No ED Nurse Phone Number: [phone] ED Summary of Care:Patient comes in with concerns for dizziness. Had recent changes in medication. Stroke work up started in ED. Plan for MRI tomorrow. Submitted by: Elena Reyes RN * Denise Chino RN - 06/05/2025 12:48 PM EDT Pt here for eval of dizziness for 10 days. Pt states he was placed back on metoprolol by his provider and after 3 days he stopped due to extreme dizziness. Pt has hx of same with this medication. Despite stopping the medication the dizziness persists. He denies vertigo but states he can't keep his balance. On arrival, pt is alert and well appearing. EKG done and reviewed by the ED provider. * Tory Stack MD - 06/05/2025 12:46 PM EDT Chief Complaint Chief Complaint Patient presents with Dizziness History of Present Illness The patient, Roxane Ruiz,is a 75 y.o. male who presents for evaluation of Dizziness Patient presents today for ataxic gait. adds to the story, stating that patient was started onmetoprolol on 26 May and taken a few doses but started to have difficulty with ambulating. States that prior to starting metoprolol he was completely normal. States that he discontinue metoprolol on Thursday and he still is having difficulty with ambulation. Patient states that his balance is veryoff and he occasionally falls and at times backwards. States that it is not left versus right but is just generalized difficulty with ambulation. Denies any slurred speech or decreased strength in upper or lower extremities. Patient has a history of CKD and hypertension and follows with cardiology. ROS 10-point ROS otherwise negative except as noted above and in HPI. Past Medical History Past Medical History: Diagnosis Date CAD (coronary artery disease) Chronic kidney disease DM2 (diabetes mellitus, type 2) History of prostate cancer HTN (hypertension) Hyperlipidemia Peripheral neuropathy Past Surgical History Past Surgical History: Procedure Laterality Date CORONARY ARTERY BYPASS GRAFT 2020 KNEE ARTHROSCOPY W/ ACL RECONSTRUCTION PROSTATECTOMY Home Medications Prior to Admission medications Medication Sig aspirin 81 MG EC tablet 81 mg, Daily atorvastatin (LIPITOR) 40 MG tablet 40 mg, Daily cholecalciferol-apoaequorin (PREVAGEN EXTRA STRENGTH) 50 mcg-20 mg Cap 1 capsule, Daily LINZESS 72 mcg capsule 1 capsule, Every morning metFORMIN (GLUCOPHAGE) 1000 MG tablet 1,000 mg, 2 times daily metoprolol succinate (TOPROL-XL) 25 MG 24 hr tablet 25 mg, Nightly NOVOLOG U-100 INSULIN ASPART 100 unit/mL injection vial INJECT 20 TO 40 UNITS SUBCUTANEOUSLY 3 TO 4TIMESDAILY DIRECTED OZEMPIC 1 mg/dose (4 mg/3 mL) subcutaneous injection pen 1 mg, Weekly senna (SENOKOT) 8.6 mg tablet 2 tablets, 2 times daily TRESIBA U-100 INSULIN injection vial 40 Units, Daily Allergies Allergies Allergen Reactions Metoprolol Other Reaction(s): Dizziness Rosuvastatin Other Reaction(s): muscle aches, fatigue Simvastatin Other Reaction(s): muscle aches, fatigue Social and Family History Social History Tobacco Use Smoking status: Never Smokeless tobacco: Never Substance Use Topics Alcohol use: Not Currently Social History Substance and Sexual Activity Drug Use Not Currently Family History Problem Relation Age of Onset Bone cancer Mother COPD Father Leukemia Sister Throat cancer Sister Physical Exam Vital Signs: ED Triage Vitals [06/05/25 1251] Encounter Vitals Group BP 131/76 Systolic BP Percentile Diastolic BP Percentile Heart Rate 91 Respiratory Rate 16 Temperature 36.1 ??C (97 ??F) Temp Source Temporal SpO2 98 % Weight 204 lb Height 6' 3 Head Circumference Peak Flow Pain Score Pain Loc Pain Education Exclude from Growth Chart General Appearance: No acute distress. Alert + oriented x 3 (person, place, time) Skin: Warm. Dry. No cyanosis. HEENT: Normocephalic. Atraumatic. EOMI. Moist mucous membranes. Neck: No JVD. Supple. Respiratory: BS equal. Symmetrical expansion. No wheezes, rhonchi, rales. Cardiac: Regular rate and rhythm. No peripheral edema. Abdomen: Soft. Non-tender to palpation. No RLQ tenderness. No rigidity. No guarding. Musculoskeletal: No tenderness. No deformity. Neuro: Normal sensory. Normal motor. No focal deficits. Normal level of consciousness. NIH 0. Observed patient during ambulation down the angela and patient was able to walk in a straight line but thenwould sway to the right or the left and then he would correct himself. Psych: Cooperative. Laboratory Testing Results for orders placed or performed during the hospital encounter of 06/05/25 ECG 12-LEAD Result Value Ref Range Ventricular Rate EKG/MIN 105 BPM Atrial Rate 105 BPM SC Interval 198 ms QRS Duration 84 ms QT Interval 324 ms QTC Interval 428 ms R Wave [place] 22 degrees T Wave [place] 250 degrees POCT Glucose Result Value Ref Range Glucose, POCT 120 (H) 70 - 100 mg/dL Urine sediment Result Value Ref Range WBC 0-4 (*) NONE SEEN /hpf RBC 0-2 (*) NONE SEEN /hpf URINE EPITHELIAL NONE SEEN NONE SEEN MUCUS 1+ (*) NONE SEEN /hpf BACTERIA NONE SEEN NONE SEEN /hpf CRYSTALS Trace CAST 0-2 Hemoglobin A1c Specimen: Blood Result Value Ref Range HEMOGLOBIN A1C 7.2 (H) 4.3 - 5.8 % Sedimentation rate (ESR) Specimen: Blood Result Value Ref Range ESR 9 0 - 20 mm/h C-reactive protein, high sensitivity Specimen: Blood Result Value Ref Range CRP, HIGH SENSITIVITY 0.9 0.0 - 5.0 mg/L Lipid panel Specimen: Blood Result Value Ref Range HDL 47 mg/dL CHOLESTEROL 126 0 - 240 mg/dL TRIGLYCERIDES 194 (H) 30 - 160 mg/dL LDL 40 (L) 50 - 129 mg/dL CARDIAC RISK RATIO 2.7 (L) 3.4 - 5.0 TSH with reflex Specimen: Blood Result Value Ref Range TSH 2.68 0.27 - 4.20 uIU/mL Toxicology screen, urine Specimen: Urine Result Value Ref Range URINE CANNABINOIDS NONE DETECTED NONE DETECTED URINE COCAINE METAB NONE DETECTED NONE DETECTED URINE AMPHETAMINES NONE DETECTED NONE DETECTED URINE METHADONE NONE DETECTED NONE DETECTED URINE OPIATES NONE DETECTED NONE DETECTED URINE PHENCYCLIDINE NONE DETECTED NONE DETECTED URINE OXYCODONE NONE DETECTED NONE DETECTED URINE BARBITURATES NONE DETECTED NONE DETECTED URINE BENZODIAZEPINE NONE DETECTED NONE DETECTED URINE BUPRENORPHINE NONE DETECTED NONE DETECTED Fentanyl, urine NONE DETECTED NONE DETECTED Ethanol, blood Specimen: Blood Result Value Ref Range ETHANOL <10 <10 mg/dL PT-INR Specimen: Blood Result Value Ref Range PT 11.3 10.2 - 12.9 sec INR 0.9 0.9 - 1.1 Magnesium Specimen: Blood Result Value Ref Range MAGNESIUM 1.5 (L) 1.6 - 2.6 mg/dL Troponin Specimen: Blood Result Value Ref Range Troponin-T, HS Gen5 28 (H) 0 - 14 ng/L Troponin Specimen: Blood Result Value Ref Range Troponin-T, HS Gen5 29 (H) 0 - 14 ng/L Urinalysis w/reflex Urine Culture Specimen: Urine Result Value Ref Range COLOR Yellow Yellow CLARITY Clear GLUCOSE Negative Negative BILI Negative Negative KETONES Negative Negative SPECIFIC GRAVITY 1.015 1.005 - 1.030 BLOOD Negative Negative PH 5.5 5.0 - 8.0 Protein-UA 1+ (*) Negative NITRITE Negative Negative Leukocyte esterase, ur Negative Negative CBC and differential Specimen: Blood Result Value Ref Range WBC 8.16 4.00 - 11.00 K/uL RBC 4.26 (L) 4.50 - 5.90 M/uL HGB 13.5 13.5 - 17.5 g/dL HCT 39.8 (L) 41.0 - 53.0 % PLT 274 150 - 450 K/uL MCV 93.4 80.0 - 100.0 fL MCH 31.7 (H) 27.0 - 31.0 pg MCHC 33.9 32.0 - 36.0 g/dL RDW 12.5 11.5 - 14.5 % MPV 10.2 8.4 - 12.0 fL NRBC 0.00 0.00 /100 WBCs ABSOLUTE NRBC 0.00 0.00 K/uL DIFF METHOD Auto NEUTS 71.5 48.0 - 76.0 % LYMPHS 20.1 18.0 - 41.0 % MONOS 5.1 4.0 - 11.0 % EOS 1.8 0.0 - 5.0 % BASOS 1.0 0.0 - 1.5 % Granulocytes, immature (%) 0.5 0.0 - 0.9 % ABSOLUTE NEUTS 5.83 1.92 - 7.60 K/uL ABSOLUTE LYMPHS 1.64 0.72 - 4.10 K/uL ABSOLUTE MONOS 0.42 0.16 - 1.10 K/uL ABSOLUTE EOS 0.15 0.00 - 0.50 K/uL ABSOLUTE BASOS 0.08 0.00 - 0.15 K/uL Granulocytes, immature 0.04 0.00 - 0.09 K/uL Basic metabolic panel Specimen: Blood Result Value Ref Range SODIUM 135 133 - 146 mmol/L CHLORIDE 105 96 - 108 mmol/L POTASSIUM 4.1 3.3 - 5.1 mmol/L CO2 19 (L) 21 - 35 mmol/L BUN 21 (H) 6 - 19 mg/dL CREATININE 1.60 (H) 0.5 - 1.5 mg/dL GLUCOSE 189 (H) 70 - 99 mg/dL CALCIUM 10.0 8.4 - 10.3 mg/dL EGFR 45 (L) >59 mL/min/1.73m2 ANION GAP 15 10 - 20 mmol/L Labs Reviewed BASIC METABOLIC PANEL - Abnormal; Notable for the following components: Result Value CO2 19 (*) BUN 21 (*) CREATININE 1.60 (*) GLUCOSE 189 (*) EGFR 45 (*) All other components within normal limits CBC AND DIFFERENTIAL - Abnormal; Notable for the following components: RBC 4.26 (*) HCT 39.8 (*) MCH 31.7 (*) All other components within normal limits URINALYSIS W/REFLEX URINE CULTURE - Abnormal; Notable for the following components: Protein-UA 1+ (*) All other components within normal limits TROPONIN - Abnormal; Notable for the following components: Troponin-T, HS Gen5 29 (*) All other components within normal limits TROPONIN - Abnormal; Notable for the following components: Troponin-T, HS Gen5 28 (*) All other components within normal limits MAGNESIUM - Abnormal; Notable for the following components: MAGNESIUM 1.5 (*) All other components within normal limits LIPID PANEL - Abnormal; Notable for the following components: TRIGLYCERIDES 194 (*) LDL 40 (*) CARDIAC RISK RATIO 2.7 (*) All other components within normal limits HEMOGLOBIN A1C - Abnormal; Notable for the following components: HEMOGLOBIN A1C 7.2 (*) All other components within normal limits URINE SEDIMENT - Abnormal; Notable for the following components: WBC 0-4 (*) RBC 0-2 (*) MUCUS 1+ (*) All other components within normal limits POCT GLUCOSE - Abnormal; Notable for the following components: Glucose, POCT 120 (*) All other components within normal limits POCT GLUCOSE - Abnormal; Notable for the following components: Glucose, POCT 171 (*) All other components within normal limits PT-INR ETHANOL, BLOOD TOXICOLOGY SCREEN, URINE TSH WITH REFLEX C-REACTIVE PROTEIN, HIGH SENSITIVITY SEDIMENTATION RATE (ESR) BASIC METABOLIC PANEL MAGNESIUM PHOSPHORUS CBC AND DIFFERENTIAL TSH PTT PT-INR POCT GLUCOSE POCT GLUCOSE Radiology Testing CT Angio Head and Neck Final Result 1. No acute intracranial findings on noncontrast head CT. 2. Mild bilateral calcified plaque of the intracranial vessels. Mild stenosis of the proximal left posterior cerebral artery. No occlusion. 3. Mild bilateral calcified plaque of the neck. No significant stenosis of the neck vessels. Brain (Results Pending) MDM Tests and imaging independently reviewed and interpreted. Notable for no leukocytosis or left shift, no evidence of anemia. Patient has baseline kidney dysfunction which he states his prevention rn knows about. Hemoglobin A1c is elevated. Patient has elevated triglycerides. Urine negative for UTI. Given patient's multiple co-morbidities and patient's symptom of difficulty with gait. Will have patient admitted for an MRI to rule out any stroke. Vitals during ED stay were stable. Plan is for admission for MRI. Category 1: Tests, Studies or Independent Historians: Independent Historian: Independent history was obtained by EMS. Prior Data Reviewed: Prior notes reviewed. Prior labs reviewed. Prior radiology tests reviewed. Category 2 and 3: Independent Interpretation of Tests, Consideration of Tests, or External Discussion of Results: Labs: Laboratory studies were interpreted. Radiology: Radiology studies were independently interpreted. ECG: EKG studies were independently interpreted. Rate: 105 Rhythm: sinus tachycardia T Wave Inversions: No ST Depressions: No ST Elevations: No Comparison: Unchanged From Prior. Clinical Impressions as of 06/06/25 0129 Ataxia Diagnosis Clinical Impression Diagnosis Description Comment Final diagnosis Ataxia Ataxia -- Disposition Course: Stable Disposition: Admit to telemetry Tory Stack MD 06/06/25 0131 documented in this encounter Miscellaneous Notes Only the most recent note of each type is shown. * Hospital Course - Kemi Matias MD - 06/06/2025 3:07 PM EDT 75-year-old man with CAD status post CABG, diabetes, hypertension, hyperlipidemia, CKD, peripheral neuropathy, history of prostate cancer status post prostatectomy, presented to the ED with 10 days of ataxia. Symptoms began approximately 1-2 day after he was placed back on Toprol XL he had been on the medication previously and it was stopped because of dizziness. The patient woke over the weekendwith loss of balance, different from previous vertigo that he had experienced. He stopped taking the metoprolol but his symptoms persisted over the course of the week and he ultimately presented to the emergency department for further evaluation. On examination he was observed to be swaying to the left or right with walking, able to correct himself without falling. #1 Loss of balance/disequilibrium In the ED, CTA head and neck was performed showing mild bilateral plaque in the intracranial vessels and mild stenosis of the proximal left posterior cerebral artery and mild bilateral calcified plaques in the neck. ASA was continued and atorvastatin increased to 80 mg daily. Lipid profile showed a total cholesterol 126, HDL 47 and LDL of 40. On telemetry, he remained in a sinus rhythm. BP was also monitored. He had no hypotension or orthostatic symptoms. MRI brain showed small vessel disease, but no acute abnormality. His symptoms improved during the hospital course. He was seen by PT/OT and was able to ambulate 300feet without support. Unclear to what extent the beta-yesenia may have been a factor. He had experienced a similar reaction in the past, but this time symptoms lingered well beyond use of the medication. There may be a vestibular component. Consider follow-up with ENT if symptoms persist. #2 CAD with history of CABG in [address] Blackburn at [facility] cardiology and has an upcoming appointment. * Assessment & Plan Note - Elmira Lechuga DO - 06/05/2025 11:55 PM EDTOnly the most recent of 6 notes of type Assessment & Plan Note is shown. Associated Problem(s): Ataxia -Patient presented with ataxia for the past 10 days. On May 26 he was prescribed a low-dose of metoprolol after he was seen by cardiology for dyspnea on exertion evaluation. He has had chronotropic incompetence on 100mg of metoprolol succinate in the past but it was felt that he may tolerate 25 mg as an antianginal. 1 to 2 days after starting the beta-yesenia patient began to have difficulty ambulating. He felt he was leaning to the side while walking. He has had vertigo in the past and reports that this felt different. He denied any other focal neurological deficits such as slurred speechor facial droop or unilateral weakness. Symptoms have been ongoing for about 10 days but are now slightly improved -CT head showed no acute pathology and CTA head and neck showed mild plaques -Follow up MRI brain -Will discuss with tele neuro once imaging results available -Monitor on tele -PT/OT eval -CUSTOMER SERVICE ATTENDANT eval deferred as he has no speech or swallowing issue at this time -Follow up HbA1c, TSH, ESR, CRP, lipid panel -Start high-dose statin and continue aspirin. Patient is not currently on Plavix as was documented in the neurology note documented in this encounter Plan of Treatment Not on file documented as of this encounter Procedures Procedure Name Priority Date/Time Associated Diagnosis Comments POCT GLUCOSE Routine 06/06/2025 4:50 PM EDT MRI BRAIN WITHOUT CONTRAST Required for discharge 06/06/2025 4:40 PM EDT POCT GLUCOSE Routine 06/06/2025 11:44 AM EDT POCT GLUCOSE Routine 06/06/2025 7:27 AM EDT PTT Routine 06/06/2025 6:15 AM EDT PT-INR Routine 06/06/2025 6:15 AM EDT CBC AND DIFFERENTIAL Routine 06/06/2025 6:15 AM EDT TSH Routine 06/06/2025 6:15 AM EDT PHOSPHORUS Routine 06/06/2025 6:15 AM EDT MAGNESIUM Routine 06/06/2025 6:15 AM EDT BASIC METABOLIC PANEL Routine 06/06/2025 6:15 AM EDT POCT GLUCOSE Routine 06/06/2025 12:02 AM EDT URINALYSIS W/REFLEX URINE CULTURE STAT 06/05/2025 7:46 PM EDT URINE SEDIMENT STAT 06/05/2025 7:46 PM EDT TOXICOLOGY SCREEN, URINE STAT 06/05/2025 7:[address] ANGIO HEAD WITH AND WITHOUT CONTRAST, CT ANGIO NECK WITH CONTRAST STAT 06/05/2025 7:13 PM EDT POCT GLUCOSE Routine 06/05/2025 6:29 PM EDT ETHANOL, BLOOD STAT 06/05/2025 6:19 PM EDT C-REACTIVE PROTEIN, HIGH SENSITIVITY STAT 06/05/2025 6:19 PM EDT TSH WITH REFLEX STAT 06/05/2025 6:19 PM EDT SEDIMENTATION RATE (ESR) STAT 06/05/2025 6:19 PM EDT PT-INR STAT 06/05/2025 6:19 PM EDT MAGNESIUM STAT 06/05/2025 6:19 PM EDT HEMOGLOBIN A1C STAT 06/05/2025 6:19 PM EDT LIPID PANEL STAT 06/05/2025 6:19 PM EDT TROPONIN STAT 06/05/2025 2:13 PM EDT CBC AND DIFFERENTIAL STAT 06/05/2025 1:07 PM EDT TROPONIN STAT 06/05/2025 1:07 PM EDT BASIC METABOLIC PANEL STAT 06/05/2025 1:07 PM EDT ECG 12-LEAD STAT 06/05/2025 12:52 PM EDT documented in this encounter Results * (ABNORMAL) POCT Glucose (06/06/2025 4:50 PM EDT) Glucose, POCT 183(H) 70 - 100 mg/dL [facility] 06/06/2025 4:50 PM EDT 06/06/2025 4:52 PM EDT us Kemi Matias MD POINT OF CARE TEST ORDERABLES F inal Result [facility] [address] [place] [address] * MRI BRAIN WITHOUT CONTRAST (06/06/2025 4:40 PM EDT) Anatomical Region Laterality Modality Head Magnetic Resonan ce 06/06/2025 4:43 PM EDT Impressions 06/06/2025 4:49 PM EDT 1. Probable moderate chronic small vessel disease. No acute or subacute infarct. Narrative 06/06/2025 4:49 PM EDT MRI BRAIN WITHOUT CONTRAST Referring clinician's provided indication for this examination in [facility]: * Neuro deficit, acute, stroke suspected; ataxia x10 days TECHNIQUE: MRI BRAIN WITHOUT CONTRAST Multi-sequence, multi-planar MRI of the brain was performed without intravenous contrast. COMPARISON: CT head June 05, 2025 FINDINGS: Brain Parenchyma: No evidence of acute or subacute infarct. No intracranial mass lesion There is a small focus identified within the right posterior frontal periventricular white matter and another small focus within the right cerebral hemisphere likely chronic hypertensive-related microhemorrhage. There are scattered foci of T2 hyperintensity in the white matter, likely a manifestation of chronic small vessel disease. Ventricular System and Extra-Axial Spaces: There is no evidence of midline shift or hydrocephalus. Extracranial Structures: Expected arterial flow signal is observed at the skull base. Procedure Note Elmer Michel DO - 06/06/2025 MRI BRAIN WITHOUT CONTRAST Referring clinician's provided indication for this examination in [facility]: *Neuro deficit, acute, stroke suspected; ataxia x10 days TECHNIQUE: MRI BRAIN WITHOUT CONTRAST Multi-sequence, multi-planar MRI of the brain was performed withoutintravenous contrast. COMPARISON: CT head June 05, 2025 FINDINGS: Brain Parenchyma: No evidence of acute or subacute infarct. Nointracranial mass lesion There is a small focus identified within theright posterior frontal periventricular white matter and another smallfocus within the right cerebral hemisphere likely chronichypertensive-related microhemorrhage. There are scattered foci of [id number] in the white matter, likely a manifestation of chronicsmall vessel disease. Ventricular System and Extra-Axial Spaces: There is no evidence of midlineshift or hydrocephalus. Extracranial Structures: Expected arterial flow signal is observed at theskull base. IMPRESSION: 1. Probable moderate chronic small vessel disease. No acute or subacuteinfarct. Elmira Lechuga DO IMG MR HEAD/NECK Final Result * (ABNORMAL) POCT Glucose (06/06/2025 11:44 AM EDT) Glucose, POCT 284(H) 70 - 100 mg/dL [facility] 06/06/2025 11:4 4 AM EDT 06/06/2025 11:54 AM EDT us Kemi Matias MD POINT OF CARE TEST ORDERABLES F inal Result Performing Organization Address [facility] Co de Phone Number [address] [address] * (ABNORMAL) POCT Glucose (06/06/2025 7:27 AM EDT) Glucose, POCT 156(H) 70 - 100 mg/dL [facility] 06/06/2025 7:27 AM EDT 06/06/2025 7:29 AM EDT us Kemi Matias MD POINT OF CARE TEST ORDERABLES F inal Result Performing Organization Address [facility] Co de Phone Number [address] [phone] * PT-INR (06/06/2025 6:15 AM EDT) PT 11.2 10.2 - 12.9 sec [facility] INR 0.9 0.9 - 1.1 [facility] Comment:Therapeutic range fo r oral Vitamin K antagonists: 2.0-3.5 Blood 06/06/2025 6:15 AM EDT 06/06/2025 6:50 AM EDT RSB SPINE A Barbadian DO LAB BLOOD ORDERABLES Final Re sult Performing Organization Address [facility] Hospital/[facility] de Phone Number [address] [address] * PTT (06/06/2025 6:15 AM EDT) APTT 29.8 25.1 - 36.5 sec [facility] Comment:APTT response to unf ractionated heparin concentrations between 0.3 and 0.7 IU/mL is typically 54.0-94.0 seconds in uncomplicated cases. The Anti-Xa assay is the preferred method. Blood 06/06/2025 6:15 AM EDT 06/06/2025 6:50 AM EDT [employer] LAB BLOOD ORDERABLES Final Re sult Performing Organization Address [facility] de Phone Number [address] [address] * (ABNORMAL) TSH (06/06/2025 6:15 AM EDT) TSH 4.25(H) 0.27 - 4.20 uIU/mL [facility] Blood 06/06/2025 6:15 AM EDT 06/06/2025 6:50 AM EDT [employer] LAB BLOOD ORDERABLES Final Re sult Performing Organization Address [facility] Co de Phone Number [address] [address] * (ABNORMAL) CBC and differential (06/06/2025 6:15 AM EDT) WBC 8.84 4.00 - 11.00 K/uL [facility] RBC 3.97(L) 4.50 - 5.90 M/uL [facility] HGB 12.6(L) 13.5 - 17.5 g/dL [facility] HCT 36.4(L) 41.0 - 53.0 % [facility] PLT 240 150 - 450 K/uL [facility] MCV 91.7 80.0 - 100.0 fL [facility] MCH 31.7(H) 27.0 - 31.0 pg [facility] MCHC 34.6 32.0 - 36.0 g/dL [facility] RDW 12.6 11.5 - 14.5 % [facility] MPV 10.4 8.4 - 12.0 fL [facility] NRBC 0.00 0.00 /100 WBCs [facility] ABSOLUTE NRBC 0.00 0.00 K/uL [facility] DIFF METHOD Auto [facility] NEUTS 63.6 48.0 - 76.0 % [facility] LYMPHS 26.2 18.0 - 41.0 % [facility] MONOS 6.9 4.0 - 11.0 % [facility] EOS 2.1 0.0 - 5.0 % [facility] BASOS 0.7 0.0 - 1.5 % [facility] Granulocytes, immature (%) 0.5 0.0 - 0.9 % [facility] ABSOLUTE NEUTS 5.62 1.92 - 7.60 K/uL [facility] ABSOLUTE LYMPHS 2.32 0.72 - 4.10 K/uL [facility] ABSOLUTE MONOS 0.61 0.16 - 1.10 K/uL [facility] ABSOLUTE EOS 0.19 0.00 - 0.50 K/uL [facility] ABSOLUTE BASOS 0.06 0.00 - 0.15 K/uL [facility] Granulocytes, immature 0.04 0.00 - 0.09 K/uL [facility] Blood 06/06/2025 6:15 AM EDT 06/06/2025 6:50 AM EDT [facility] A Barbadian DO LAB BLOOD ORDERABLES Final Re sult Performing Organization Address [facility] Co de Phone Number [address] [address] * Phosphorus (06/06/2025 6:15 AM EDT) PHOSPHORUS 3.1 2.7 - 4.5 mg/dL [facility] Blood 06/06/2025 6:15 AM EDT 06/06/2025 6:50 AM EDT [facility] LAB BLOOD ORDERABLES Final Re sult Performing Organization Address [facility] de Phone Number [address] [address] * Magnesium (06/06/2025 6:15 AM EDT) MAGNESIUM 1.8 1.6 - 2.6 mg/dL [facility] Blood 06/06/2025 6:15 AM EDT 06/06/2025 6:50 AM EDT [facility] LAB BLOOD ORDERABLES Final Re sult Performing Organization Address [facility] de Phone Number [address] [address] * (ABNORMAL) Basic metabolic panel (06/06/2025 6:15 AM EDT) SODIUM 137 133 - 146 mmol/L [facility] CHLORIDE 105 96 - 108 mmol/L [facility] POTASSIUM 4.3 3.3 - 5.1 mmol/L [facility] CO2 22 21 - 35 mmol/L [facility] BUN 21(H) 6 - 19 mg/dL [facility] CREATININE 1.40 0.5 - 1.5 mg/dL [facility] GLUCOSE 159(H) 70 - 99 mg/dL [facility] CALCIUM 9.8 8.4 - 10.3 mg/dL [facility] EGFR 53(L) >59 mL/min/1.7 3m2 [facility] Comment:Estimated glomerular filtration rate calculated using the CKD-EPI refit equation. ANION GAP 14 10 - 20 mmol/L [facility] Blood 06/06/2025 6:15 AM EDT 06/06/2025 6:50 AM EDT Elmira Lechuga DO LAB BLOOD ORDERABLES Final Re sult [address] [address] * (ABNORMAL) POCT Glucose (06/06/2025 12:02 AM EDT) Glucose, POCT 171(H) 70 - 100 mg/dL [facility] 06/06/2025 12:0 2 AM EDT 06/06/2025 12:04 AM EDT Elmira Bueno Barb[place] POINT OF CARE TEST ORDERABLES Final Result Performing Organization Address [facility]/ZIP Co de Phone Number [address] [address] * (ABNORMAL) Urine sediment (06/05/2025 7:46 PM EDT) WBC 0-4(A) NONE SEEN /hpf [facility] RBC 0-2(A) NONE SEEN /hpf [facility] URINE EPITHELIAL NONE SEEN NONE SEEN [facility] MUCUS 1+(A) NONE SEEN /hpf [facility] BACTERIA NONE SEEN NONE SEEN /hpf [facility] CRYSTALS Trace [facility] Comment:Calcium Oxalate CAST 0-2 [facility] Comment: HYALINE CAST 0-2 GRANULAR CAST 06/05/2025 7:46 PM EDT 06/05/2025 8:47 PM EDT Nila Manuel MD URINE ORDERABLES Final Resu lt Performing Organization Address [facility] Co de Phone Number [address] [address] * Toxicology screen, urine (06/05/2025 7:46 PM EDT) URINE CANNABINOIDS NONE DETECTED NONE DETECTED [facility] Comment:Cutoff: 50 ng/mL URINE COCAINE METAB NONE DETECTED NONE DETECTED [facility] Comment:Cutoff: 300 ng/mL URINE AMPHETAMINES NONE DETECTED NONE DETECTED [facility] Comment:Cutoff: 1000 ng/mL URINE METHADONE NONE DETECTED NONE DETECTED [facility] Comment:Cutoff: 300 ng/mL URINE OPIATES NONE DETECTED NONE DETECTED [facility] Comment:Cutoff: 300 ng/mL URINE PHENCYCLIDINE NONE DETECTED NONE DETECTED [facility] Comment:Cutoff: 25 ng/mL URINE OXYCODONE NONE DETECTED NONE DETECTED [facility] Comment:Cutoff: 300 ng/mL URINE BARBITURATES NONE DETECTED NONE DETECTED [facility] Comment:Cutoff: 200 ng/mL URINE BENZODIAZEPINE NONE DETECTED NONE DETECTED [facility] Comment:Cutoff: 200 ng/mL URINE BUPRENORPHINE NONE DETECTED NONE DETECTED [facility] Comment:Cutoff: 5 ng/mL Fentanyl, urine NONE DETECTED NONE DETECTED [facility] Comment: Cutoff: 5 ng/mL INTERPRETATION FOR TOXICOLOGY PANEL: These results are unconfirmed and should be used for Medical Treatment purposes only. Urine (Urine) 06/05/2025 7:4 6 PM EDT 06/05/2025 8:47 PM EDT oTry Stack MD URINE ORDERABLES Final Re sult Performing Organization Address [facility] Co de Phone Number [address] [address] * (ABNORMAL) Urinalysis w/reflex Urine Culture (06/05/2025 7:46 PM EDT) COLOR Yellow Yellow [facility] CLARITY Clear [facility] GLUCOSE Negative Negative [facility] BILI Negative Negative [facility] KETONES Negative Negative [facility] SPECIFIC GRAVITY 1.015 1.005 - 1.030 [facility] BLOOD Negative Negative [facility] PH 5.5 5.0 - 8.0 [facility] Protein-UA 1+(A) Negative [facility] NITRITE Negative Negative [facility] Leukocyte esterase, ur Negative Negative [facility] Urine (Urine) 06/05/2025 7:4 6 PM EDT 06/05/2025 8:47 PM EDT us Nila Manuel MD URINE ORDERABLES Final Resu lt [facility] [address] [place] [address] * CT ANGIO HEAD WITH AND WITHOUT CONTRAST, CT ANGIO NECK WITH CONTRAST (06/05/2025 7:13 PM EDT) Anatomical Region Laterality Modality Neck Computed Tomogra phy 06/05/2025 7:48 PM EDT Impressions 06/05/2025 7:59 PM EDT 1. No acute intracranial findings on noncontrast head CT. 2. Mild bilateral calcified plaque of the intracranial vessels. Mild stenosis of the proximal left posterior cerebral artery. No occlusion. 3. Mild bilateral calcified plaque of the neck. No significant stenosis of the neck vessels. Narrative 06/05/2025 7:[address] ANGIO HEAD WITH AND WITHOUT CONTRAST, CT ANGIO NECK WITH CONTRAST Referring clinician's provided indication for this examination in Epic: * Neuro deficit, acute, stroke suspected; symptoms started on May 27, ataxic gait, falling TECHNIQUE: * CTA of the head was performed before and after administration of intravenous contrast using tailored dose modulation techniques. Images were reconstructed in the axial, coronal, and sagittal planes, including angiographic image post-processing. 3D angiographic images with reformatting and post-processing reconstructions were performed and interpreted. * CTA of the neck was performed after administration of intravenous contrast using tailored dose modulation techniques. Images were reconstructed in the axial, coronal, and sagittal planes. 3D angiographic images with reformatting and post- processing reconstructions were performed and interpreted. COMPARISON: None FINDINGS: CT HEAD: Brain Parenchyma: No midline shift, mass effect, parenchymal hemorrhage, or evidence of acute territorial infarct. Ventricular System and Extra-Axial Spaces: No extra-axial fluid collections. Basal cisterns are patent. No hydrocephalus. Osseous and Extracranial Structures: No calvarial fracture or significant soft tissue hematoma. No significant paranasal sinus disease. No orbital abnormality. CTA HEAD: No aneurysm or arteriovenous malformation. Intracranial internal carotid arteries: Mild bilateral calcified plaque without significant stenosis. Anterior cerebral arteries: No occlusion or high grade stenosis. Middle cerebral arteries: No occlusion or high grade stenosis. Vertebrobasilar system: Moderate calcified plaque within both vertebral arteries with mild distal stenosis, without occlusion. The basilar artery is small in size but without significant stenosis. Posterior cerebral arteries: Mild stenosis of the proximal left vertebral artery, without occlusion. Venous: No dural sinus thrombosis. CTA NECK: Aortic Arch and Branch Vessel Origins: Normal branching anatomy. Mild bilateral subclavian plaque, no significant stenosis. Right Carotid Artery: Mild calcified plaque in the right carotid bulb. No significant stenosis. Left Carotid Artery: Calcified plaque in the left carotid bulb, not steadied stenosis. Right Vertebral Artery: There is calcified plaque at the origin of the right vertebral artery and in the distal right vertebral body, without significant stenosis or dissection. Left Vertebral Artery: Distal calcified plaque, without significant stenosis. Venous structures: The jugular veins enhance normally. NON-VASCULAR FINDINGS: Lungs and Airways: Mild regions of air trapping in the upper lobes. Soft tissues: A few small bilateral anterior and posterior cervical chain lymph nodes are present but not pathologically enlarged. Bones: Moderate degenerative changes of the spine. No acute osseous abnormality. Mild disc bulge at C5-C6. Procedure Note Charissa Oshea MD, PhD - 06/05/2025 CT ANGIO HEAD WITH AND WITHOUT CONTRAST, CT ANGIO NECK WITH CONTRAST Referring clinician's provided indication for this examination in [facility]: *Neuro deficit, acute, stroke suspected; symptoms started on May 27,ataxic gait, falling TECHNIQUE: * CTA of the head was performed before and after administration ofintravenous contrast using tailored dose modulation techniques. Imageswere reconstructed in the axial, coronal, and sagittal planes, includingangiographic image post- processing. 3D angiographic images withreformatting and post-processing reconstructions were performed andinterpreted. * CTA of the neck was performed after administration of intravenouscontrast using tailored dose modulation techniques. Images werereconstructed in the axial, coronal, and sagittal planes. 3D angiographicimages with reformatting and post-processing reconstructions wereperformed and interpreted. COMPARISON: None FINDINGS: CT HEAD: Brain Parenchyma: No midline shift, mass effect, parenchymal hemorrhage,or evidence of acute territorial infarct. Ventricular System and Extra-Axial Spaces: No extra-axial fluidcollections. Basal cisterns are patent. No hydrocephalus. Osseous and Extracranial Structures: No calvarial fracture or significantsoft tissue hematoma. No significant paranasal sinus disease. No orbitalabnormality. CTA HEAD: No aneurysm or arteriovenous malformation. Intracranial internal carotid arteries: Mild bilateral calcified plaquewithout significant stenosis. Anterior cerebral arteries: No occlusion or high grade stenosis. Middle cerebral arteries: No occlusion or high grade stenosis. Vertebrobasilar system: Moderate calcified plaque within both vertebralarteries with mild distal stenosis, without occlusion. The basilar arteryis small in size but without significant stenosis. Posterior cerebral arteries: Mild stenosis of the proximal left vertebralartery, without occlusion. Venous: No dural sinus thrombosis. CTA NECK: Aortic Arch and Branch Vessel Origins: Normal branching anatomy. Mildbilateral subclavian plaque, no significant stenosis. Right Carotid Artery: Mild calcified plaque in the right carotid bulb. Nosignificant stenosis. Left Carotid Artery: Calcified plaque in the left carotid bulb, notsteadied stenosis. Right Vertebral Artery: There is calcified plaque at the origin of theright vertebral artery and in the distal right vertebral body, withoutsignificant stenosis or dissection. Left Vertebral Artery: Distal calcified plaque, without significantstenosis. Venous structures: The jugular veins enhance normally. NON-VASCULAR FINDINGS: Lungs and Airways: Mild regions of air trapping in the upper lobes. Soft tissues: A few small bilateral anterior and posterior cervical chainlymph nodes are present but not pathologically enlarged. Bones: Moderate degenerative changes of the spine. No acute osseousabnormality. Mild disc bulge at C5-C6. IMPRESSION: 1. No acute intracranial findings on noncontrast head CT. 2. Mild bilateral calcified plaque of the intracranial vessels. Mildstenosis of the proximal left posterior cerebral artery. No occlusion. 3. Mild bilateral calcified plaque of the neck. No significant stenosisof the neck vessels. Tory Stack MD IMG CT HEAD/NECK Final Re sult * (ABNORMAL) POCT Glucose (06/05/2025 6:29 PM EDT) Glucose, POCT 120(H) 70 - 100 mg/dL [facility] 06/05/2025 6:29 PM EDT 06/05/2025 6:34 PM EDT Tory Stack MD POINT OF CARE TEST ORDERA BLES Final Result Performing Organization Address [facility]/ZIP Co de Phone Number [address] [address] * (ABNORMAL) Hemoglobin A1c (06/05/2025 6:19 PM EDT) HEMOGLOBIN A1C 7.2(H) 4.3 - 5.8 % [facility] Blood 06/05/2025 6:19 PM EDT 06/05/2025 6:29 PM EDT Tory Stack MD LAB BLOOD ORDERABLES Tegan l Result Performing Organization Address [facility]/ZIP Co de Phone Number [address] [address] * Sedimentation rate (ESR) (06/05/2025 6:19 PM EDT) ESR 9 0 - 20 mm/h [facility] Blood 06/05/2025 6:19 PM EDT 06/05/2025 6:29 PM EDT Tory Stack MD LAB BLOOD ORDERABLES Tegan l Result Performing Organization Address City/[facility]/ZIP Co de Phone Number [address] [address] * C-reactive protein, high sensitivity (06/05/2025 6:19 PM EDT) CRP, HIGH SENSITIVITY 0.9 0.0 - 5.0 mg/L [facility] Comment: Interpretation: hsCRP level (mg/L) Relative Risk <1.0 Low 1.0 - 3.0 Average >3.0 High Neonates (0-3 weeks): 0.1 - 4.1 mg/L Children (2 months - 15 years): 0.1 - 2.8 mg/L Blood 06/05/2025 6:19 PM EDT 06/05/2025 6:29 PM EDT us Tory Stack MD LAB BLOOD ORDERABLES Tegan l Result Performing Organization Address [facility] Co de Phone Number [address] [address] * (ABNORMAL) Lipid panel (06/05/2025 6:19 PM EDT) [facility] HDL 47 mg/dL [facility] Comment: Interpretation <40 mg/dL: Low HDL cholesterol (major risk factor for CHD) Greater than or equal to 60 mg/dL: High HDL cholesterol ( negative risk factor for CHD) HDL - cholesterol is affected by a number of factors, e.g. smoking, excerise, hormones, sex and age. CHOLESTEROL 126 0 - 240 mg/dL [facility] TRIGLYCERIDES 194(H) 30 - 160 mg/dL [facility] LDL 40(L) 50 - 129 mg/dL [facility] Comment: LDL levels in terms of risk for coronary heart disease: <100 mg/dL: Optimal 100-129 mg/dL: Near or above optimal 130-159 mg/dL: Borderline high 160-189 mg/dL: High >190 mg/dL: Very High CARDIAC RISK RATIO 2.7(L) 3.4 - 5.0 [facility] Blood 06/05/2025 6:19 PM EDT 06/05/2025 6:29 PM EDT us Tory Stack MD LAB BLOOD ORDERABLES Tegan l Result Performing Organization Address City/[facility] Co de Phone Number [address] [address] * TSH with reflex (06/05/2025 6:19 PM EDT) TSH 2.68 0.27 - 4.20 uIU/mL [facility] Blood 06/05/2025 6:19 PM EDT 06/05/2025 6:29 PM EDT us Tory Stack MD LAB BLOOD ORDERABLES Tegan l Result [address] [address] * Ethanol, blood (06/05/2025 6:19 PM EDT) ETHANOL <10 <10 mg/dL [facility] Blood 06/05/2025 6:19 PM EDT 06/05/2025 6:29 PM EDT us Tory Stack MD LAB BLOOD ORDERABLES Tegan l Result Performing Organization Address City/[facility]/ZIP Co de Phone Number [address] [address] * PT-INR (06/05/2025 6:19 PM EDT) PT 11.3 10.2 - 12.9 sec [facility] INR 0.9 0.9 - 1.1 [facility] Comment:Therapeutic range fo r oral Vitamin K antagonists: 2.0-3.5 Blood 06/05/2025 6:19 PM EDT 06/05/2025 6:29 PM EDT us Tory Stack MD LAB BLOOD ORDERABLES Tegan l Result Performing Organization Address City/[facility]/ZIP Co de Phone Number [address] [address] * (ABNORMAL) Magnesium (06/05/2025 6:19 PM EDT) MAGNESIUM 1.5(L) 1.6 - 2.6 mg/dL [facility] Blood 06/05/2025 6:19 PM EDT 06/05/2025 6:29 PM EDT Tory Stack MD LAB BLOOD ORDERABLES Tegan l Result [address] [address] * (ABNORMAL) Troponin (06/05/2025 2:13 PM EDT) Troponin-T, HS Gen5 28(H) 0 - 14 ng/L [facility] Blood 06/05/2025 2:13 PM EDT 06/05/2025 2:17 PM EDT Papi Luke PA-C LAB BLOOD ORDERABLES Final Res ult Performing Organization Address City/[facility]/ZIP Co de Phone Number [address] [address] * (ABNORMAL) Troponin (06/05/2025 1:07 PM EDT) Troponin-T, HS Gen5 29(H) 0 - 14 ng/L [facility] Blood 06/05/2025 1:07 PM EDT 06/05/2025 1:19 PM EDT Papi Luke PA-C LAB BLOOD ORDERABLES Final Res ult [address] [address] * (ABNORMAL) CBC and differential (06/05/2025 1:07 PM EDT) WBC 8.16 4.00 - 11.00 K/uL [facility] RBC 4.26(L) 4.50 - 5.90 M/uL [facility] HGB 13.5 13.5 - 17.5 g/dL [facility] HCT 39.8(L) 41.0 - 53.0 % [facility] PLT 274 150 - 450 K/uL [facility] MCV 93.4 80.0 - 100.0 fL [facility] MCH 31.7(H) 27.0 - 31.0 pg [facility] MCHC 33.9 32.0 - 36.0 g/dL [facility] RDW 12.5 11.5 - 14.5 % [facility] MPV 10.2 8.4 - 12.0 fL [facility] NRBC 0.00 0.00 /100 WBCs [facility] ABSOLUTE NRBC 0.00 0.00 K/uL [facility] DIFF METHOD Auto [facility] NEUTS 71.5 48.0 - 76.0 % [facility] LYMPHS 20.1 18.0 - 41.0 % [facility] MONOS 5.1 4.0 - 11.0 % [facility] EOS 1.8 0.0 - 5.0 % [facility] BASOS 1.0 0.0 - 1.5 % [facility] Granulocytes, immature (%) 0.5 0.0 - 0.9 % [facility] ABSOLUTE NEUTS 5.83 1.92 - 7.60 K/uL [facility] ABSOLUTE LYMPHS 1.64 0.72 - 4.10 K/uL [facility] ABSOLUTE MONOS 0.42 0.16 - 1.10 K/uL [facility] ABSOLUTE EOS 0.15 0.00 - 0.50 K/uL [facility] ABSOLUTE BASOS 0.08 0.00 - 0.15 K/uL [facility] Granulocytes, immature 0.04 0.00 - 0.09 K/uL [facility] Blood 06/05/2025 1:07 PM EDT 06/05/2025 1:19 PM EDT us Nila Manuel MD LAB BLOOD ORDERABLES Final Result [address] [address] * (ABNORMAL) Basic metabolic panel (06/05/2025 1:07 PM EDT) Pathologist [facility] SODIUM 135 133 - 146 mmol/L [facility] CHLORIDE 105 96 - 108 mmol/L [facility] POTASSIUM 4.1 3.3 - 5.1 mmol/L [facility] CO2 19(L) 21 - 35 mmol/L [facility] BUN 21(H) 6 - 19 mg/dL [facility] CREATININE 1.60(H) 0.5 - 1.5 mg/dL [facility] GLUCOSE 189(H) 70 - 99 mg/dL [facility] CALCIUM 10.0 8.4 - 10.3 mg/dL [facility] EGFR 45(L) >59 mL/min/1.7 3m2 [facility] Comment:Estimated glomerular filtration rate calculated using the CKD-EPI refit equation. ANION GAP 15 10 - 20 mmol/L [facility] Blood 06/05/2025 1:07 PM EDT 06/05/2025 1:19 PM EDT us Nila Manuel MD LAB BLOOD ORDERABLES Final Result [address] [address] * ECG 12-LEAD (06/05/2025 12:52 PM EDT) Pathologist [facility] Ventricular Rate EKG/MIN 105 BPM [facility] Atrial Rate 105 BPM [facility] SC Interval 198 ms [facility] QRS Duration 84 ms [facility] QT Interval 324 ms [facility] QTC Interval 428 ms [facility] R Wave [place] 22 degrees [facility] T Wave [place] 250 degrees [facility] 06/05/2025 12:5 2 PM EDT 06/05/2025 2:30 PM EDT Narrative [facility] - 06/05/2025 2:30 PM EDT Sinus tachycardia Minimal voltage criteria for LVH, may be normal variant ST & T wave abnormality, consider inferolateral ischemia Abnormal ECG No previous ECGs available Confirmed by Yunior Marcus ([id number]) on 06/05/2025 2:30:04 PM us Nila Manuel MD ECG ORDERABLES Final Resul t [facility] documented in this encounter Visit Diagnoses Diagnosis Ataxia- Primary Lack of coordination Ataxia Lack of coordination HTN (hypertension) Unspecified essential hypertension DM2 (diabetes mellitus, type 2) CKD (chronic kidney disease) Chronic kidney disease, unspecified CAD (coronary artery disease) Coronary atherosclerosis of unspecified type of vessel, [place] or graft Chronic constipation Unspecified constipation documented in this encounter Admitting Diagnoses Diagnosis Ataxia Lack of coordination documented in this encounter Administered Medications Inactive Administered Medications - up to 3 most recent administrations Medication Order MAR Action Action Date Dose Rate Site acetaminophen (TYLENOL) 160 mg/5 mL (5 mL) oral suspension 650 mg 650 mg, Oral, Every 6 hours PRN, mild pain or 1-3 (on a general 0-10 scale), fever, Starting on Thu06/05/25 at 2335, If unable to tolerate tablet. Patient may opt to receive a pain med that is ordered for a lower level of pain. Shake Well acetaminophen (TYLENOL) suppository 650 mg 650 mg, Rectal, Every 6 hours PRN, mild pain or 1-3 (on a general 0-10 scale), fever, Starting on Thu06/05/25 at 2335, If unable to tolerate PO. Patient may opt to receive a pain med that is ordered for a lower level of pain. acetaminophen (TYLENOL) tablet 650 mg 650 mg, Oral, Every 6 hours PRN, mild pain or 1-3 (on a general 0-10 scale), fever, Starting on Thu06/05/25 at 2335, Patient may opt to receive a pain med that is ordered for a lower level of pain. aspirin chewable tablet 81 mg 81 mg, Oral, Daily, First dose on Thu06/06/25 at 0900, If patient received alteplase (TPA), DO NOT administer within 24 hours. Administer ONLY if patient has passed dysphagia screen. Administer with full glass of water, food, or milk to decrease GI upset. Given 06/06/2025 9:06 AM EDT 81 mg aspirin tablet 325 mg 325 mg, Oral, Once, On Thu06/05/25 at 2245, For 1 dose Given 06/06/2025 12:27 AM EDT 325 mg atorvastatin (LIPITOR) tablet 80 mg 80 mg, Oral, Every evening, First dose on Thu06/06/25 at 0030, Administer ONLY if patient has passed dysphagia screen. Given 06/06/2025 12:27 AM EDT 80 mg enoxaparin (LOVENOX) subcutaneous syringe 40 mg 40 mg, Subcutaneous, Every 24 hours scheduled, First dose on Thu06/06/25 at 0900, Administer subcutaneously. Rotate injection sites. Given 06/06/2025 9:06 AM EDT 40 mg Left Lower Abdomen insulin glargine (LANTUS) subcutaneous injection 22 Units 22 Units, Subcutaneous, Daily, First dose on Thu06/06/25 at 0900, If NPO, nutrition held or to be held within the next 6 hours: Give 11 units If tube feeds/TPN are off and insulin given within last 6 hours, check glucose and page RC. Given 06/06/2025 9:07 AM EDT 22 Units Left Arm insulin lispro (ADMELOG, HumaLOG) subcutaneous injection 0-12 Units 0-12 Units, Subcutaneous, 4 times daily with meals and nightly insulin, First dose on Thu06/06/25 at 0800, CORRECTIONAL INSULIN: Give even if patient is NPO/not receiving nutrition. Moderate dose Blood glucose (mg/dL): Insulin dose Glucose 70-150: 0 unit. Glucose 151-200: 2 units. Glucose 201-250: 4 units. Glucose 251-300: 6 units. Glucose 301-350: 8 units. Glucose 351-400: 10 units. Glucose >400: 12 units and call RC. For blood glucose < 70 mg/dL call RC AND if patient: 1. Able to take PO, give 15 g of carbohydrate (4 oz fruit juice, regular soda, 8 oz of skim milk, or 3 to 4 glucose tablets) 2. Unable to take PO and PIV PRESENT, administer D50W per prn medication order OR 3. Unable to take PO and NO PIV, call RC/VPK TEACHER to obtain order for glucagon Check blood glucose in 15 minutes and repeat if < 80 mg/dL and call RCC, Insulin type: Correctional insulin Given 06/06/2025 5:00 PM EDT 2 Units Left Arm Given 06/06/2025 12:23 PM EDT 6 Units L eft Lower Abdomen Given 06/06/2025 9:06 AM EDT 2 Units Le ft Arm iohexoL (OMNIPAQUE-350) 350 mg iodine/mL solution 75 mL 75 mL, Intravenous, Once as needed, pre procedure/treatment, Starting on Thu06/05/25 at 1914, For 1 dose, Procedural Contrast/Med Active Now, Each mL contains 755 mg of iohexol equivalent to 350 mg of organic iodine. Given 06/05/2025 7:14 PM EDT 75 mL magnesium sulfate 2 gram/50 mL (4%) in Sterile Water IVPB premix 2 g 2 g, Intravenous, at 100 mL/hr, Once, On Thu06/06/25 at 0030, For 1 dose New Bag 06/06/2025 12:27 AM EDT 2 g 100 mL/hr ondansetron (PF) (ZOFRAN) injection 4 mg 4 mg, Intravenous, Every 8 hours PRN, nausea, vomiting, Starting on Thu06/05/25 at 2335, If unable to tolerate PO. ondansetron (ZOFRAN-ODT) disintegrating tablet 4 mg 4 mg, Oral, Every 8 hours PRN, nausea, vomiting, Starting on Thu06/05/25 at 2335 senna (SENOKOT) tablet 2 tablet 2 tablet, Oral, 2 times daily, First dose on Thu06/06/25 at 0900 Given 06/06/2025 9:06 AM EDT 2 tablets documented in this encounter Active and Recently Administered Medications Times are shown in EDT. Scheduled Medication Order 06/04/2025 06/05/2025 06/06/2025 aspirin chewable tablet 81 mg 81 mg, Oral, Daily, First dose on Thu06/06/25 at 0900, If patient received alteplase (TPA), DO NOT administer within 24 hours. Administer ONLY if patient has passed dysphagia screen. Administer with full glass of water, food, or milk to decrease GI upset. 905 (Given - Provid er: Dimple Vee RN) aspirin tablet 325 mg (COMPLETED) 325 mg, Oral, Once, On Thu06/05/25 at 2245, For 1 dose 0027 (Given - Provid er: Constance Flaherty RN - Comment: not given by ER) atorvastatin (LIPITOR) tablet 80 mg 80 mg, Oral, Every evening, First dose on Thu06/06/25 at 0030, Administer ONLY if patient has passed dysphagia screen. 0027 (Given - Provid er: Constance Flaherty RN)1829 (Not Given - Provider: Sarah Em RN - Reason: Patient/family refused - Comment: pt plans on taking at home tonight.) enoxaparin (LOVENOX) subcutaneous syringe 40 mg 40 mg, Subcutaneous, Every 24 hours scheduled, First dose on Thu06/06/25 at 0900, Administer subcutaneously. Rotate injection sites. 905 (Given - Provid er: Dimple Vee RN) insulin glargine (LANTUS) subcutaneous injection 22 Units 22 Units, Subcutaneous, Daily, First dose on Thu06/06/25 at 0900, If NPO, nutrition held or to be held within the next 6 hours: Give 11 units If tube feeds/TPN are off and insulin given within last 6 hours, check glucose and page RC. 0907 (Given - Provid er: Dimple Vee RN) insulin lispro (ADMELOG, HumaLOG) subcutaneous injection 0-12 Units 0-12 Units, Subcutaneous, 4 times daily with meals and nightly insulin, First dose on Thu06/06/25 at 0800, CORRECTIONAL INSULIN: Give even if patient is NPO/not receiving nutrition. Moderate dose Blood glucose (mg/dL): Insulin dose Glucose 70-150: 0 unit. Glucose 151-200: 2 units. Glucose 201-250: 4 units. Glucose 251-300: 6 units. Glucose 301-350: 8 units. Glucose 351-400: 10 units. Glucose >400: 12 units and call RC. For blood glucose < 70 mg/dL call RC AND if patient: 1. Able to take PO, give 15 g of carbohydrate (4 oz fruit juice, regular soda, 8 oz of skim milk, or 3 to 4 glucose tablets) 2. Unable to take PO and PIV PRESENT, administer D50W per prn medication order OR 3. Unable to take PO and NO PIV, call RC/VPK TEACHER to obtain order for glucagon Check blood glucose in 15 minutes and repeat if < 80 mg/dL and call RCC, Insulin type: Correctional insulin 905 (Given - Provid er: Dimple Vee RN)1223 (Given - Provider: Dimple Vee RN)1700 (Given - Provider: Sarah Em RN) magnesium sulfate 2 gram/50 mL (4%) in Sterile Water IVPB premix 2 g (COMPLETED) 2 g, Intravenous, at 100 mL/hr, Once, On Thu06/06/25 at 0030, For 1 dose 0027 (New Bag - Prov ider: Constance Flaherty RN) senna (SENOKOT) tablet 2 tablet 2 tablet, Oral, 2 times daily, First dose on Thu06/06/25 at 0900 0906 (Given - Provid er: Dimple Vee RN) PRN Medication Order 06/04/2025 06/05/2025 06/06/2025 acetaminophen (TYLENOL) 160 mg/5 mL (5 mL) oral suspension 650 mg(Linked Group 1) 650 mg, Oral, Every 6 hours PRN, mild pain or 1-3 (on a general 0-10 scale), fever, Starting on Thu06/05/25 at 2335, If unable to tolerate tablet. Patient may opt to receive a pain med that is ordered for a lower level of pain. Shake Well acetaminophen (TYLENOL) suppository 650 mg(Linked Group 1) 650 mg, Rectal, Every 6 hours PRN, mild pain or 1-3 (on a general 0-10 scale), fever, Starting on Thu06/05/25 at 2335, If unable to tolerate PO. Patient may opt to receive a pain med that is ordered for a lower level of pain. acetaminophen (TYLENOL) tablet 650 mg(Linked Group 1) 650 mg, Oral, Every 6 hours PRN, mild pain or 1-3 (on a general 0-10 scale), fever, Starting on Thu06/05/25 at 2335, Patient may opt to receive a pain med that is ordered for a lower level of pain. D10W bolus 125-250 mL 125-250 mL, Intravenous, As needed, other (free text field), hypoglycemia, Starting on Thu06/05/25 at 2336, If unable to take PO and: Blood glucose < 50 mg/dL or impaired consciousness, give 25 grams (1 amp or 50 mL D50W) = D10W 250 mL. Blood glucose 50-69 mg/dL, give 12.5 grams (1/2 amp or 25 mL D50W) = D10W 125 mL. Call RC Recheck blood glucose in 15 minutes and repeat prn. Administer at 999 ml/hr on pump iohexoL (OMNIPAQUE-350) 350 mg iodine/mL solution 75 mL (COMPLETED) 75 mL, Intravenous, Once as needed, pre procedure/treatment, Starting on Thu06/05/25 at 1914, For 1 dose, Procedural Contrast/Med Active Now, Each mL contains 755 mg of iohexol equivalent to 350 mg of organic iodine. 1913 (Given - Provider: Jocelyn Monets) melatonin tablet 5 mg 5 mg, Oral, Nightly PRN, difficulty sleeping, Starting on Thu06/05/25 at 2335 ondansetron (PF) (ZOFRAN) injection 4 mg(Linked Group 2) 4 mg, Intravenous, Every 8 hours PRN, nausea, vomiting, Starting on Thu06/05/25 at 2335, If unable to tolerate PO. ondansetron (ZOFRAN-ODT) disintegrating tablet 4 mg(Linked Group 2) 4 mg, Oral, Every 8 hours PRN, nausea, vomiting, Starting on Thu06/05/25 at 2335 polyethylene glycol packet 17 g, Oral, Daily as needed, mild constipation, Starting on Thu06/05/25 at 2335 sodium chloride (NS) 0.9 % syringe flush 3 mL 3 mL, Intravenous, As needed, line care, Starting on Thu06/05/25 at 2336, Per Institutional IV Line Care Policy. Linked Groups Order Group 1: acetaminophen (TYLENOL) tablet 650 mgJump to med 650 mg, Oral, Every 6 hours PRN, mild pain or 1-3 (on a general 0-10 scale), fever, Starting on Thu06/05/25 at 2335, Patient may opt to receive a pain med that is ordered for a lower level of pain. Or acetaminophen (TYLENOL) 160 mg/5 mL (5 mL) oral suspension 650 mgJump to med 650 mg, Oral, Every 6 hours PRN, mild pain or 1-3 (on a general 0-10 scale), fever, Starting on Thu06/05/25 at 2335, If unable to tolerate tablet. Patient may opt to receive a pain med that is ordered for a lower level of pain. Shake Well Or acetaminophen (TYLENOL) suppository 650 mgJump to med 650 mg, Rectal, Every 6 hours PRN, mild pain or 1-3 (on a general 0-10 scale), fever, Starting on Thu06/05/25 at 2335, If unable to tolerate PO. Patient may opt to receive a pain med that is ordered for a lower level of pain. Group 2: ondansetron (ZOFRAN-ODT) disintegrating tablet 4 mgJump to med 4 mg, Oral, Every 8 hours PRN, nausea, vomiting, Starting on Thu06/05/25 at 2335 Or ondansetron (PF) (ZOFRAN) injection 4 mgJump to med 4 mg, Intravenous, Every 8 hours PRN, nausea, vomiting, Starting on Thu06/05/25 at 2335, If unable to tolerate PO. documented in this encounter Care Teams Sprinkler Installer Relationship Specialty Start Date End Date Tony Hinton MD [address] [place] [phone] PCP - General Internal Medicine 08/12/24 documented as of this encounter Additional Source Comments The information contained in this document represents components of the legal health record. It is not the complete legal health record.[facility]
--- NOTE | 2025-06-09 14:56 | HO.SPINEOV ---
Intake Visit Reasons: recurring back pain after surgery Intake Note: Mr. Ruiz is here today c/o recurring back pain after surgery. Personal Financial Representative Required: No Allergies dulaglutide (From Trulicity) Allergy (Intermediate, Verified 06/09/25 14:57) Nausea and Vomiting rosuvastatin (From Crestor) Allergy (Verified 06/09/25 14:57) Muscle Pain simvastatin Allergy (Verified 06/09/25 14:57) Muscle Pain Assessment & Plan Assessment & Plan (1) Lumbar stenosis with neurogenic claudication: Code(s): M48.062 - Spinal stenosis, lumbar region with neurogenic claudication Category: Medical Plan: Dear colleague, On 06/09/2025, I saw for a return visit Roxane Ruiz. He underwent a lumbar decompression and implantation of a coflex device in April 2023 for neurogenic claudication. He was doing well until recently. States that he has back pain that radiates to his hips with walking and standing. Sitting down alleviates his symptoms. On exam he stands in a flexed position. There are no neurological deficits for motor sensation or reflexes. This patient is suffering from returning neurogenic claudication symptoms. I would like to order an MRI of the lumbar spine and an x-ray of the lumbar spine. I will see the patient back after the studies are done. I spent 25 minutes in his consult for history physical and discussing plan of care. Chema Coffey MD, PhD Spine Fellowship Trained Neurosurgeon Director, [facility] (2) Status post lumbar spine surgery for decompression of spinal cord: Code(s): Z98.890 - Other specified postprocedural states Category: Surgical Plan: w Orders: Orders XR lumbar spine 4V min Today M48.062 - Spinal stenosis, lumbar region with neurogenic claudication MR lumbar spine wo/w con Today M48.062 - Spinal stenosis, lumbar region with neurogenic claudication, Z98.890 - Other specified postprocedural states Coding Level of Care Code Est Pt Level 3 (01002) Diagnoses Lumbar stenosis with neurogenic claudication M48.062 Status post lumbar spine surgery for decompression of spinal cord Z98.890
--- OUTSIDE RECORDS SUMMARY | 2025-06-09 17:02 | XMS_ITS | Clinical Summary ---
Author Organization [facility] Address [address] [place] [address] Care Team Providers Care Chief Information Officer Name Role Phone Tony Hinton MD Primary Care Provider [phone]- [phone] Allergies No known active allergies Medications insulin glargine (LANTUS) 100 unit/mL injection Inject 100 Units under the skin daily. Active insulin lispro (HumaLOG) 100 unit/mL injection Inject under the skin 3 times a day before meals. Active metFORMIN (GLUCOPHAGE) 1000 MG tablet Take 1 tablet (1,000 mg total) by mouth 2 times a day with breakfast & dinner. Active aspirin 81 MG EC tablet Take 1 tablet (81 mg total) by mouth daily. Active atorvaSTATin (LIPITOR) 20 MG tablet Take 1 tablet (20 mg total) by mouth daily. 9 Active lisinopril (PRINIVIL,ZESTR IL) 40 MG tablet Take 10 mg by mouth daily. 9 Active docusate sodium (COLACE) 100 MG capsule Take 1 capsule (100 mg total) by mouth every morning & every evening. 30 capsule 9 Active amiodarone (PACERONE) 200 MG tablet TAKE 1 TABLET BY MOUTH TWO TIMES A DAY 1 Active clopidogreL (PLAVIX) 75 mg tablet 1 Active metoprolol ER (TOPROL-XL) 50 MG 24 hr tablet 2 Active sennosides (SENOKOT) 25 mg tablet Take 2 tablets (50 mg total) by mouth. 1 Active TRESIBA U-100 INSULIN 100 unit/mL Soln 2 Active FREESTYLE HAMLET 2 SENSOR Kit USE SENSORS DIRECTED EVERY 2 WEEKS 2 Active semaglutide (OZEMPIC) 0.25 mg or 0.5 mg(2 mg/1.5 mL) Inject under the skin every 7 days. Active Active Problems Problem Noted Date Diagnosed Date Erectile dysfunction after radical prostatectomy 10/17/2022 S/P prostatectomy 02/07/2020 Prostate cancer 08/05/2019 Malignant neoplasm of prostate 07/05/2019 Overview (07/05/2019): Added automatically from request for surgery [id number] Family History Medical History Relation Comments Cancer Mother Leukemia Sister Relation Status Comments Mother Sister Social History Tobacco Use Types Packs/Day Years Used Date Smoking Tobacco: Never Smokeless Tobacco: Never Tobacco Cessation:Counseling Given: Not Answered Alcohol Use Standard Drinks/Week Comments Not Currently 0 (1 standard drink = 0.6 oz pur e alcohol) Sex and Gender Information Value Date Recorded Sex Assigned at Male 08/05/2019 6:00 PM EST Legal Sex Male 1:25 PM EDT Gender Identity Male 08/05/2019 6:00 PM EST Sexual Orientation Not on file Last Filed Vital Signs Vital Sign Reading Time Taken Comments Blood Pressure 136/69 08/12/2019 10:54 AM EST Pulse 82 08/12/2019 10:54 AM EST Temperature 36.4 C (97.5 F) 08/12/2019 10:54 AM EST Respiratory Rate 16 08/07/2019 7:33 AM EST Oxygen Saturation 95% 08/07/2019 7:33 AM EST Inhaled Oxygen Concentration - - Weight 113 kg (250 lb) 07/20/2019 11:38 AM EDT Height 188 cm (6' 2 ) 07/20/2019 11:38 AM EDT Body Mass Index 32.1 07/20/2019 11:38 AM EDT Plan of Treatment Upcoming Encounters Date Type Department Care Team (Late st Contact Info) Description 01/08/2026 11:00 AM EDT Office Visit Department of [facility]rology [facility] [address] [address] Doug Maria NP [address] [place] [id number] In Person with Nurse Practitioner Health Maintenance Due Date Last Done Comments Blood Pressure 1951 Lipid Panel 1951 Urine Microalbumin 1951 Depression Screening 1955 Hepatitis C Screening 1969 DTaP,Tdap,and Td Vaccines (1 - Tdap) 1970 CT Colonography 1996 Colonoscopy 1996 Colorectal Cancer Screening 1996 FIT 1996 FOBT 1996 Multitarget Stool DNA (Cologuard) 1996 Sigmoidoscopy 1996 Zoster Vaccine (1 of 2) 2001 Pneumococcal Vaccine (2 of 2 - PCV) 06/14/2013 06/14/2012 Medicare Initial AWV [id number] 02/26/2017 Hemoglobin A1c 01/19/2020 07/20/2019 COVID-19 Vaccine ( season) 2025 06/09/2024, 02/07/2024, 06/15/2023, Additional history exists Influenza Vaccine (#1) 2025 , 06/15/2023, 07/02/2022, Additional history exists Meningococcal B Vaccines Aged Out No longer eligible based on patient's age to complete this topic Meningococcal Vaccines Aged Out No lo nger eligible based on patient's age to complete this topic Procedures Procedure Name Priority Date/Time Associated Diagnosis Comments HEMOGLOBIN A1C Routine 07/20/2019 11:51 AM EDT Malignant neoplasm of prostate from Last 3 Months or Most Recently Relevant to Health Maintenance Results * (ABNORMAL) Hemoglobin A1C (07/20/2019 11:51 AM EDT) Hemoglobin A1C 7.3(H) 4.6 - 5.6 % 07/20/2019 12:19 PM EDT [facility] Comment: 4.6 to 5.6% Normal 5.7 to 6.4% Pre-diabetes, increased risk for diabetes >= 6.5% Diabetes mellitus Blood specimen (specimen) Venipuncture / Unknown 07/20/2019 11:51 AM EDT 07/20/2019 11:57 AM EDT us Jamaal Moinzadeh MD LAB BLOOD ORDERABLES Final Result Performing Organization Address City/State/[facility] Co de Phone Number [address] [phone] from Last 3 Months or Most Recently Relevant to Health Maintenance Insurance MEDICARE MEDEX MEDICARE MEDEX Advance Directives * Full Code (Latest Code Status on File) Date Activated Date Inactivated Comments 08/04/2019 6:12 PM Care Teams Chief Information Officer Relationship Specialty Start Date End Date Tony Hinton MD [address] [place] [phone] PCP - General Pediatric Medicine 03/12/18
--- OUTSIDE RECORDS SUMMARY | 2025-06-09 17:02 | XMS_ITS | Encounter Summary ---
Author Organization [facility] Address [address] [place] [address] Care Team Providers Care Plate Grainer Apprentice Name Role Phone Tony Hinton MD Primary Care Provider [phone]- [phone] Reason for Referral * ADVANCED IMAGING (Routine) - Closed Specialty Diagnoses / Procedures Referred By Contac t Referred To Contact Diagnoses Malignant neoplasm of prostate (HCC) Procedures NM Bone Scan Whole Body CHG BONE IMAGING, WHOLE BODY HC BONE AND OR JOINT IMAGE WHOLE BODY CHG BONE IMAGING, WHOLE BODY Jamaal Claire MD [address] [place] [phone] Phone: tel: fax: Referral ID Status Reason Start Date Expiration Date Visits Re quested Visits Authorized [id number] Closed 07/08/2019 10/06/2019 1 2 Encounter Details Date Type Department Care Team (Latest Contact Info) Description 07/05/2019 Prep for Procedure Department of Urology [facility] [address] [place] [phone] Jamaal Claire MD [address] [place] [phone] Malignant neoplasm of prostate (Primary Dx) Social History Tobacco Use Types Packs/Day Years Used Date Smoking Tobacco: Never Smokeless Tobacco: Never Sex and Gender Information Value Date Recorded Sex Assigned at Male 08/05/2019 6:00 PM EST Legal Sex Male 1:25 PM EDT Gender Identity Male 08/05/2019 6:00 PM EST Sexual Orientation Not on file documented as of this encounter Plan of Treatment Upcoming Encounters Date Type Department Care Team (Late st Contact Info) Description 01/08/2026 11:00 AM EDT Office Visit Department of Urology [facility] [address] [place] [address] Doug Maria NP [address] [place] [address] In Person with Nurse Practitioner documented as of this encounter Results * NM Bone Scan Whole Body (07/20/2019 2:53 PM EDT) Anatomical Region Laterality Modality Nuclear Medicine 07/20/2019 4:44 PM EDT Narrative 07/20/2019 4:40 PM EDT Dictated by Leanna Long MD, surgical resident EXAM DESCRIPTION: Bone scan whole body planar scinigraphy. TECHNIQUE: Radiopharmaceutical: 20.3 mCi of technetium 99m MDP. Delayed whole-body planar images were obtained. Study was performed on 07/20/2019 10:53 am COMPARISON: None INDICATION: Prostate cancer. Evaluate for metastasis. FINDINGS: Focally increased uptake in the left lateral 10th rib, may represent prior trauma, although metastasis is not excluded. Symmetric foci of increased uptake in the bilateral shoulders, elbows, wrists, pelvis, knees and feet, likely representing degenerative disease. Normal visualization of kidneys bilaterally. IMPRESSION: 1. Focally increased uptake in the left 10th rib, may represent prior trauma, although metastasis is not excluded. Recommend correlation CT 2. Symmetric foci of increased uptake in the bilateral shoulders, elbows, wrists, pelvis, knees and feet, likely representing degenerative disease. I have reviewed all films of this examination and edited the above dictation. Procedure Note Milan Dickinson MD - 07/20/2019 Dictated by Leanna Long MD, surgical resident EXAM DESCRIPTION: Bone scan whole body planar scinigraphy. TECHNIQUE: Radiopharmaceutical: 20.3 mCi of technetium 99m MDP. Delayed whole-bodyplanar images were obtained. Study was performed on 07/20/2019 10:53 am COMPARISON: None INDICATION: Prostate cancer. Evaluate for metastasis. FINDINGS: Focally increased uptake in the left lateral 10th rib, may represent priortrauma, although metastasis is not excluded. Symmetric foci of increased uptake in the bilateral shoulders, elbows,wrists, pelvis, knees and feet, likely representing degenerativedisease. Normal visualization of kidneys bilaterally. IMPRESSION: 1. Focally increased uptake in the left 10th rib, may represent priortrauma, although metastasis is not excluded. Recommend correlation CT 2. Symmetric foci of increased uptake in the bilateral shoulders, elbows,wrists, pelvis, knees and feet, likely representing degenerativedisease. I have reviewed all films of this examination and edited the abovedictation. us Jamaal Claire MD [facility]LES Final Res ult * Type and Screen (07/20/2019 11:51 AM EDT) ABO Group A 07/20/2019 12:48 PM EDT [facility] Rh Type POS 07/20/2019 12:48 PM EDT [facility] Antibody Screen NEG 07/20/2019 12:48 PM EDT [facility] Blood specimen (specimen) Venipuncture / Unknown 07/20/2019 11:51 AM EDT 07/20/2019 11:57 AM EDT us Jamaal Claire MD BLOOD [facility] TEST ORDERABLES Final Result [facility] [address] [address] * (ABNORMAL) Hemoglobin A1C (07/20/2019 11:51 AM EDT) Hemoglobin A1C 7.3(H) 4.6 - 5.6 % 07/20/2019 12:19 PM EDT [facility] Comment: 4.6 to 5.6% Normal 5.7 to 6.4% Pre-diabetes, increased risk for diabetes >= 6.5% Diabetes mellitus Blood specimen (specimen) Venipuncture / Unknown 07/20/2019 11:51 AM EDT 07/20/2019 11:57 AM EDT Jamaal Claire MD LAB BLOOD ORDERABLES Final Result Performing Organization Address City/[facility]/ZIP Co de Phone Number [address] [phone] * Culture, Aerobic, Urine (07/20/2019 10:56 AM EDT) Culture No growth: <1000 CFU/mL KWASI 07/21/2019 7:31 AM EDT [facility] Urine specimen (specimen) MID-STREAM URINE SPECIMEN / Unknown Collection / Unknown 07/20/2019 10:56 AM EDT 07/20/2019 12:08 PM EDT Jamaal Claire MD MICROBIOLOGY - GENERAL ORDE RABLES Final Result Performing Organization Address [facility] Co de Phone Number [address] [phone] documented in this encounter Visit Diagnoses Diagnosis Malignant neoplasm of prostate (HCC)- Primary Malignant neoplasm of prostate Malignant neoplasm of prostate (HCC) Malignant neoplasm of prostate documented in this encounter Care Teams Plate Grainer Apprentice Relationship Specialty Start Date End Date Tony Hinton MD [address] [place] [phone] PCP - General Pediatric Medicine 03/12/18 documented as of this encounter
--- OUTSIDE RECORDS SUMMARY | 2025-06-09 17:03 | XMS_ITS | Clinical Summary ---
Author Organization [facility] Address [address] [place] [phone] Phone Care Team Providers Care Transplant Surgeon Name Role Phone Tony Hinton MD Primary Care Provid er Allergies Active Allergy Reactions Criticality Noted Date Comments Metoprolol 06/05/2025 Other Reaction(s): Dizziness Rosuvastatin 06/05/2025 Other Reaction(s): muscle aches, fatigue Simvastatin 06/05/2025 Other Reaction(s): muscle aches, fatigue Medications atorvastatin (LIPITOR) 40 MG tablet Take 40 mg by mouth daily. Active aspirin 81 MG EC tablet Take 81 mg by mouth daily. Active NOVOLOG U-100 INSULIN ASPART 100 unit/mL injection vial INJECT 20 TO 40 UNITS SUBCUTANEOUSLY 3 TO 4 TIMESDAILY DIRECTED 05/28/20 25 Active TRESIBA U-100 INSULIN injection vial Inject 40 Units under the skin daily. 05/24/20 25 Active LINZESS 72 mcg capsule Take 1 capsule by mouth every morning. 04/06/20 25 Active metFORMIN (GLUCOPHAGE) 1000 MG tablet Take 1,000 mg by mouth 2 (two) times a day. Active OZEMPIC 1 mg/dose (4 mg/3 mL) subcutaneous injection pen Inject 1 mg under the skin once a week. 05/30/20 25 Active cholecalciferol- apoaequorin (PREVAGEN EXTRA STRENGTH) 50 mcg-20 mg Cap Take 1 capsule by mouth daily. Active senna (SENOKOT) 8.6 mg tablet Take 2 tablets by mouth 2 (two) times a day. Active erythromycin (ROMYCIN) ophthalmic ointment Place 0.5 inches into each eye nightly at bedtime. 3.5 g 08/12/20 24 025 Discontin ued(No longer taking) metoprolol succinate (TOPROL-XL) 25 MG 24 hr tablet Take 25 mg by mouth nightly at bedtime. 05/25/20 25 025 Discontin ued(Stop Taking at Discharge ) Active Problems Problem Noted Date Diagnosed Date Ataxia 06/05/2025 Assessment & Plan (06/05/2025 11:55 PM EDT): -Patient presented with ataxia for the past [...] other focal neurological deficits such as slurred speech or facial droop or unilateral weakness. Symptoms have been ongoing for about 10 days but are now slightly improved -CT head showed no acute pathology and CTA head and neck showed mild plaques -Follow up MRI brain -Will discuss with tele neuro once imaging results available -Monitor on tele -PT/OT eval -PHYSICIAN OFFICE NURSE eval deferred as he has no speech or swallowing issue at this time -Follow up HbA1c, TSH, ESR, CRP, lipid panel -Start high-dose statin and continue aspirin. 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 earlier in the year - Hold the metoprolol for permissive hypertension DM2 (diabetes mellitus, type 2) 06/05/2025 Assessment & Plan (06/05/2025 11:55 PM EDT): -Continue basal insulin, decrease dose slightly as switching from Tresiba to Lantus -Hold metformin as he just had CTA head and neck -Ozempic is nonformulary and he takes this on Sundays -Monitor point of care, cover with insulin sliding scale as needed -Hemoglobin A1c 7.2 CKD (chronic kidney disease) 06/05/2025 Assessment & Plan (06/05/2025 11:55 PM EDT): - Creatinine at baseline CAD (coronary artery disease) 06/05/2025 Assessment & Plan (06/05/2025 11:55 PM EDT): - Denies any chest pain, continue aspirin and statin Chronic constipation 06/05/2025 Assessment & Plan (06/05/2025 11:55 PM EDT): - Linzess is nonformulary, continue senna Encounters Date Type Department Care Team Description 06/05/2025 4:51 PM EDT - 06/06/2025 6:43 PM EDT Hospital Encounter [facility] [address] [place] [id number] Tory Stack MD Israeli, DO Donna Sánchez Eli, MD Green, Kemi Carr MD Preliminary, Preliminary, PhD Discharge Disposition: Home or Self Care 06/05/2025 Procedure Pass [facility], Mri - [address] [address] 06/05/2025 Procedure Pass [facility], Ct Scan [address] [address] from Last 3 Months Immunizations Immunization Administration Dates Next Due Influenza High-Dose Trivalen t Preservative Free IM 06/06/2025(Deferred: Contraindication) Family History Medical History Relation Comments COPD Father Bone cancer Mother Leukemia Sister 1 Throat cancer Sister 2 Relation Status Comments Father Mother Sister 1 Sister 2 Social History Tobacco Use Types Packs/Day Years [...] Orientation Straight 06/05/2025 12 :49 PM EDT Last Filed Vital Signs Vital Sign Reading [...] Mass Index 27.8 06/05/2025 12:51 PM EDT Plan of Treatment Health Maintenance Due Date Last Done Comments Adult Td,Tdap Booster 1951 BLOOD PRESSURE 1951 DEPRESSION SCREENING 1963 HEPATITIS C SCREENING 1969 PNEUMOCOCCAL VACCINES (50+ years) (1 of 2 - PCV) 1970 COLOGUARD 1996 COLONOSCOPY 1996 COLORECTAL CANCER SCREENING 1996 FIT TEST 1996 FOBT 1996 SIGMOIDOSCOPY 1996 VIRTUAL COLONOSCOPY 1996 ZOSTER VACCINES (1 of 2) 2001 RSV VACCINE (1 - Risk 60-74 years 1-dose series) 2011 INFLUENZA VACCINE (#1) 2025 COVID-19 VACCINE (1 - 2023-2 5 season) 2025 DIABETIC EYE EXAM 06/06/2025 HEMOGLOBIN A1C 12/03/2025 06/05/2025, 07/20/2019, 07/20/2019 CREATININE LEVEL 06/06/2026 06/06/2025, 06/05/2025 SMOKING STATUS SCREENING (On ce After 26 Yrs) Completed 06/05/2025 HEPATITIS A VACCINES Aged Out No long er eligible based on patient's age to complete this topic HIB VACCINES Aged Out No longer eligi ble based on patient's age to complete this topic MENINGOCOCCAL VACCINES (ACWY) Aged Out No longer eligible based on patient's age to complete this topic MENINGOCOCCAL VACCINES (B) Aged Out N o longer eligible based on patient's age to complete this topic Medical Devices Not on file Procedures Procedure Name Priority Date/Time Associated Diagnosis Comments POCT GLUCOSE Routine 06/06/2025 4:50 PM EDT MRI BRAIN WITHOUT CONTRAST Required for discharge 06/06/2025 4:40 PM EDT POCT GLUCOSE Routine 06/06/2025 11:44 AM EDT POCT GLUCOSE Routine 06/06/2025 7:27 AM EDT PT-INR Routine 06/06/2025 6:15 AM EDT PTT Routine 06/06/2025 6:15 AM EDT TSH Routine 06/06/2025 6:15 AM EDT CBC AND DIFFERENTIAL Routine 06/06/2025 6:15 AM EDT PHOSPHORUS Routine 06/06/2025 6:15 AM EDT MAGNESIUM Routine 06/06/2025 6:15 AM EDT BASIC METABOLIC PANEL Routine 06/06/2025 6:15 AM EDT POCT GLUCOSE Routine 06/06/2025 12:02 AM EDT URINE SEDIMENT STAT 06/05/2025 7:46 PM EDT TOXICOLOGY SCREEN, URINE STAT 06/05/2025 7:46 PM EDT URINALYSIS W/REFLEX URINE CULTURE STAT 06/05/2025 7:[address] ANGIO HEAD WITH AND WITHOUT CONTRAST, CT ANGIO NECK WITH CONTRAST STAT 06/05/2025 7:13 PM EDT POCT GLUCOSE Routine 06/05/2025 6:29 PM EDT HEMOGLOBIN A1C STAT 06/05/2025 6:19 PM EDT SEDIMENTATION RATE (ESR) STAT 06/05/2025 6:19 PM EDT C-REACTIVE PROTEIN, HIGH SENSITIVITY STAT 06/05/2025 6:19 PM EDT LIPID PANEL STAT 06/05/2025 6:19 PM EDT TSH WITH REFLEX STAT 06/05/2025 6:19 PM EDT ETHANOL, BLOOD STAT 06/05/2025 6:19 PM EDT PT-INR STAT 06/05/2025 6:19 PM EDT MAGNESIUM STAT 06/05/2025 6:19 PM EDT TROPONIN STAT 06/05/2025 2:13 PM EDT TROPONIN STAT 06/05/2025 1:07 PM EDT CBC AND DIFFERENTIAL STAT 06/05/2025 1:07 PM EDT BASIC METABOLIC PANEL STAT 06/05/2025 1:07 PM EDT ECG 12-LEAD STAT 06/05/2025 12:52 PM EDT from Last 3 Months Results * (ABNORMAL) POCT Glucose (06/06/2025 4:50 PM EDT) Only the most recent of5 resultswithin the time period is included. Glucose, POCT 183(H) 70 - 100 mg/dL [facility] 06/06/2025 4:50 PM EDT 06/06/2025 4:52 PM EDT us Kemi Matias MD POINT OF CARE TEST ORDERABLES F inal Result [facility] [address] [place] [address] * MRI BRAIN WITHOUT CONTRAST (06/06/2025 4:40 PM EDT) Anatomical Region Laterality Modality Head Magnetic Resonan ce 06/06/2025 4:43 PM EDT Impressions 06/06/2025 4:49 PM EDT 1. Probable moderate chronic small vessel disease. No acute or subacute infarct. Narrative 06/06/2025 4:49 PM EDT MRI BRAIN WITHOUT CONTRAST Referring clinician's provided indication for this examination in [facility]: * Neuro deficit, acute, stroke suspected; ataxia [...] clinician's provided indication for this examination in [facility]: *Neuro deficit, acute, stroke suspected; ataxia x10 [...] chronichypertensive-related microhemorrhage. There are scattered foci of [id number] in the white matter, likely a manifestation of chronicsmall vessel disease. Ventricular System and Extra-Axial Spaces: There is no evidence of midlineshift or hydrocephalus. Extracranial Structures: Expected arterial flow signal is observed at theskull base. IMPRESSION: 1. Probable moderate chronic small vessel disease. No acute or subacuteinfarct. Elmira A Malaysian DO IMG MR HEAD/NECK Final Result * PTT (06/06/2025 6:15 AM EDT) APTT 29.8 25.1 - 36.5 sec [facility] Comment:APTT response to unf ractionated heparin concentrations between 0.3 and 0.7 IU/mL is typically 54.0-94.0 seconds in uncomplicated cases. The Anti-Xa assay is the preferred method. Blood 06/06/2025 6:15 AM EDT 06/06/2025 6:50 AM EDT [employer] LAB BLOOD ORDERABLES Final Re sult Performing Organization Address [facility] Co de Phone Number [address] [address] * PT-INR (06/06/2025 6:15 AM EDT) Only the most recent of2 resultswithin the time period is included. PT 11.2 10.2 - 12.9 sec [facility] INR 0.9 0.9 - 1.1 [facility] Comment:Therapeutic range fo r oral Vitamin K antagonists: 2.0-3.5 Blood 06/06/2025 6:15 AM EDT 06/06/2025 6:50 AM EDT Result [facility] [employer] LAB BLOOD ORDERABLES Final Re sult Performing Organization Address [facility] Co de Phone Number [address] [address] * (ABNORMAL) CBC and differential (06/06/2025 6:15 AM EDT) Only the most recent of2 resultswithin the time period is included. WBC 8.84 4.00 - 11.00 K/uL [facility] RBC 3.97(L) 4.50 - 5.90 M/uL [facility] HGB 12.6(L) 13.5 - 17.5 g/dL [facility] HCT 36.4(L) 41.0 - 53.0 % [facility] PLT 240 150 - 450 K/uL [facility] MCV 91.7 80.0 - 100.0 fL [facility] MCH 31.7(H) 27.0 - 31.0 pg [facility] MCHC 34.6 32.0 - 36.0 g/dL [facility] RDW 12.6 11.5 - 14.5 % [facility] MPV 10.4 8.4 - 12.0 fL [facility] NRBC 0.00 0.00 /100 WBCs [facility] ABSOLUTE NRBC 0.00 0.00 K/uL [facility] DIFF METHOD Auto [facility] NEUTS 63.6 48.0 - 76.0 % [facility] LYMPHS 26.2 18.0 - 41.0 % [facility] MONOS 6.9 4.0 - 11.0 % [facility] EOS 2.1 0.0 - 5.0 % [facility] BASOS 0.7 0.0 - 1.5 % [facility] Granulocytes, immature (%) 0.5 0.0 - 0.9 % [facility] ABSOLUTE NEUTS 5.62 1.92 - 7.60 K/uL [facility] ABSOLUTE LYMPHS 2.32 0.72 - 4.10 K/uL [facility] ABSOLUTE MONOS 0.61 0.16 - 1.10 K/uL [facility] ABSOLUTE EOS 0.19 0.00 - 0.50 K/uL [facility] ABSOLUTE BASOS 0.06 0.00 - 0.15 K/uL [facility] Granulocytes, immature 0.04 0.00 - 0.09 K/uL [facility] Blood 06/06/2025 6:15 AM EDT 06/06/2025 6:50 AM EDT us Elmira A Malaysian DO LAB BLOOD ORDERABLES Final Re sult Performing Organization Address [facility] Co de Phone Number [address] [address] * (ABNORMAL) TSH (06/06/2025 6:15 AM EDT) TSH 4.25(H) 0.27 - 4.20 uIU/mL [facility] Blood 06/06/2025 6:15 AM EDT 06/06/2025 6:50 AM EDT Elmira A Malaysian DO LAB BLOOD ORDERABLES Final Re sult Performing Organization Address [facility] de Phone Number [address] [address] * Phosphorus (06/06/2025 6:15 AM EDT) PHOSPHORUS 3.1 2.7 - 4.5 mg/dL [facility] Blood 06/06/2025 6:15 AM EDT 06/06/2025 6:50 AM EDT Elmira A Malaysian DO LAB BLOOD ORDERABLES Final Re sult Performing Organization Address [facility] de Phone Number [address] [address] * Magnesium (06/06/2025 6:15 AM EDT) Only the most recent of2 resultswithin the time period is included. MAGNESIUM 1.8 1.6 - 2.6 mg/dL [facility] Blood 06/06/2025 6:15 AM EDT 06/06/2025 6:50 AM EDT us Elmira A Malaysian DO LAB BLOOD ORDERABLES Final Re sult Performing Organization Address [facility] Co de Phone Number [address] [place] [address] * (ABNORMAL) Basic metabolic panel (06/06/2025 6:15 AM EDT) Only the most recent of2 resultswithin the time period is included. SODIUM 137 133 - 146 mmol/L [facility] CHLORIDE 105 96 - 108 mmol/L [facility] POTASSIUM 4.3 3.3 - 5.1 mmol/L [facility] CO2 22 21 - 35 mmol/L [facility] BUN 21(H) 6 - 19 mg/dL [facility] CREATININE 1.40 0.5 - 1.5 mg/dL [facility] GLUCOSE 159(H) 70 - 99 mg/dL [facility] CALCIUM 9.8 8.4 - 10.3 mg/dL [facility] EGFR 53(L) >59 mL/min/1.7 3m2 [facility] Comment:Estimated glomerular filtration rate calculated using the CKD-EPI refit equation. ANION GAP 14 10 - 20 mmol/L [facility] Blood 06/06/2025 6:15 AM EDT 06/06/2025 6:50 AM EDT us Elmira Lechuga DO LAB BLOOD ORDERABLES Final Re sult [address] [address] * (ABNORMAL) Urinalysis w/reflex Urine Culture (06/05/2025 7:46 PM EDT) Pathologist [facility] COLOR Yellow Yellow [facility] CLARITY Clear [facility] GLUCOSE Negative Negative [facility] BILI Negative Negative [facility] KETONES Negative Negative [facility] SPECIFIC GRAVITY 1.015 1.005 - 1.030 [facility] BLOOD Negative Negative [facility] PH 5.5 5.0 - 8.0 [facility] Protein-UA 1+(A) Negative [facility] NITRITE Negative Negative [facility] Leukocyte esterase, ur Negative Negative [facility] Urine (Urine) 06/05/2025 7:4 6 PM EDT 06/05/2025 8:47 PM EDT us Nila Manuel MD URINE ORDERABLES Final Resu lt Performing Organization Address [facility]/ZIP Co de Phone Number [address] [address] * (ABNORMAL) Urine sediment (06/05/2025 7:46 PM EDT) WBC 0-4(A) NONE SEEN /hpf [facility] RBC 0-2(A) NONE SEEN /hpf [facility] URINE EPITHELIAL NONE SEEN NONE SEEN [facility] MUCUS 1+(A) NONE SEEN /hpf [facility] BACTERIA NONE SEEN NONE SEEN /hpf [facility] CRYSTALS Trace [facility] Comment:Calcium Oxalate CAST 0-2 [facility] Comment: HYALINE CAST 0-2 GRANULAR CAST 06/05/2025 7:46 PM EDT 06/05/2025 8:47 PM EDT us Nila Manuel MD URINE ORDERABLES Final Resu lt Performing Organization Address [facility]/ZIP Co de Phone Number [address] [address] * Toxicology screen, urine (06/05/2025 7:46 PM EDT) URINE CANNABINOIDS NONE DETECTED NONE DETECTED [facility] Comment:Cutoff: 50 ng/mL URINE COCAINE METAB NONE DETECTED NONE DETECTED [facility] Comment:Cutoff: 300 ng/mL URINE AMPHETAMINES NONE DETECTED NONE DETECTED [facility] Comment:Cutoff: 1000 ng/mL URINE METHADONE NONE DETECTED NONE DETECTED [facility] Comment:Cutoff: 300 ng/mL URINE OPIATES NONE DETECTED NONE DETECTED [facility] Comment:Cutoff: 300 ng/mL URINE PHENCYCLIDINE NONE DETECTED NONE DETECTED [facility] Comment:Cutoff: 25 ng/mL URINE OXYCODONE NONE DETECTED NONE DETECTED [facility] Comment:Cutoff: 300 ng/mL URINE BARBITURATES NONE DETECTED NONE DETECTED [facility] Comment:Cutoff: 200 ng/mL URINE BENZODIAZEPINE NONE DETECTED NONE DETECTED [facility] Comment:Cutoff: 200 ng/mL URINE BUPRENORPHINE NONE DETECTED NONE DETECTED [facility] Comment:Cutoff: 5 ng/mL Fentanyl, urine NONE DETECTED NONE DETECTED [facility] Comment: Cutoff: 5 ng/mL INTERPRETATION FOR TOXICOLOGY PANEL: These results are unconfirmed and should be used for Medical Treatment purposes only. Urine (Urine) 06/05/2025 7:4 6 PM EDT 06/05/2025 8:47 PM EDT us Tory Stack MD URINE ORDERABLES Final Re sult [facility] [address] [place] [address] * CT ANGIO HEAD WITH AND WITHOUT [...] clinician's provided indication for this examination in [facility]: *Neuro deficit, acute, stroke suspected; symptoms started [...] neck. No significant stenosisof the neck vessels. us Tory Stack MD IMG CT HEAD/NECK Final Re sult * Ethanol, blood (06/05/2025 6:19 PM EDT) ETHANOL <10 <10 mg/dL [facility] Blood 06/05/2025 6:19 PM EDT 06/05/2025 6:29 PM EDT us Tory Stack MD LAB BLOOD ORDERABLES Tegan l Result Performing Organization Address City/[facility]/ZIP Co de Phone Number [address] [address] * C-reactive protein, high sensitivity (06/05/2025 6:19 PM EDT) [facility] CRP, HIGH SENSITIVITY 0.9 0.0 - 5.0 mg/L [facility] Comment: Interpretation: hsCRP level (mg/L) Relative Risk <1.0 Low 1.0 - 3.0 Average >3.0 High Neonates (0-3 weeks): 0.1 - 4.1 mg/L Children (2 months - 15 years): 0.1 - 2.8 mg/L Blood 06/05/2025 6:19 PM EDT 06/05/2025 6:29 PM EDT Tory Stack MD LAB BLOOD ORDERABLES Tegan l Result [address] [address] * TSH with reflex (06/05/2025 6:19 PM EDT) Pathologist [facility] TSH 2.68 0.27 - 4.20 uIU/mL [facility] Blood 06/05/2025 6:19 PM EDT 06/05/2025 6:29 PM EDT Tory Stack MD LAB BLOOD ORDERABLES Tegan l Result [address] [address] * Sedimentation rate (ESR) (06/05/2025 6:19 PM EDT) ESR 9 0 - 20 mm/h [facility] Blood 06/05/2025 6:19 PM EDT 06/05/2025 6:29 PM EDT us Tory Stack MD LAB BLOOD ORDERABLES Tegan l Result Performing Organization Address [facility]/ZIP Co de Phone Number [address] [address] * (ABNORMAL) Hemoglobin A1c (06/05/2025 6:19 PM EDT) HEMOGLOBIN A1C 7.2(H) 4.3 - 5.8 % [facility] Blood 06/05/2025 6:19 PM EDT 06/05/2025 6:29 PM EDT Tory Stack MD LAB BLOOD ORDERABLES Tegan l Result Performing Organization Address [facility] Co de Phone Number [address] [address] * (ABNORMAL) Lipid panel (06/05/2025 6:19 PM EDT) HDL 47 mg/dL [facility] Comment: Interpretation <40 mg/dL: Low HDL cholesterol (major risk factor for CHD) Greater than or equal to 60 mg/dL: High HDL cholesterol ( negative risk factor for CHD) HDL - cholesterol is affected by a number of factors, e.g. smoking, excerise, hormones, sex and age. CHOLESTEROL 126 0 - 240 mg/dL [facility] TRIGLYCERIDES 194(H) 30 - 160 mg/dL [facility] LDL 40(L) 50 - 129 mg/dL [facility] Comment: LDL levels in terms of risk for coronary heart disease: <100 mg/dL: Optimal 100-129 mg/dL: Near or above optimal 130-159 mg/dL: Borderline high 160-189 mg/dL: High >190 mg/dL: Very High CARDIAC RISK RATIO 2.7(L) 3.4 - 5.0 C [facility] Blood 06/05/2025 6:19 PM EDT 06/05/2025 6:29 PM EDT us Tory Stack MD LAB BLOOD ORDERABLES Tegan l Result Performing Organization Address [facility] Co de Phone Number [address] [address] * (ABNORMAL) Troponin (06/05/2025 2:13 PM EDT) Only the most recent of2 resultswithin the time period is included. Troponin-T, HS Gen5 28(H) 0 - 14 ng/L [facility] Blood 06/05/2025 2:13 PM EDT 06/05/2025 2:17 PM EDT us Papi Luke PA-C LAB BLOOD ORDERABLES Final Res ult Performing Organization Address [facility] Co de Phone Number [address] [address] * ECG 12-LEAD (06/05/2025 12:52 PM EDT) Ventricular Rate EKG/MIN 105 BPM [facility] Atrial Rate 105 BPM [facility] NM Interval 198 ms [facility] QRS Duration 84 ms [facility] QT Interval 324 ms [facility] QTC Interval 428 ms [facility] R Wave [place] 22 degrees [facility] T Wave [place] 250 degrees [facility] 06/05/2025 12:5 2 PM EDT 06/05/2025 2:30 PM EDT Narrative [facility] - 06/05/2025 2:30 PM EDT Sinus tachycardia Minimal voltage criteria for LVH, may be normal variant ST & T wave abnormality, consider inferolateral ischemia Abnormal ECG No previous ECGs available Confirmed by Yunior Marcus ([id number]) on 06/05/2025 2:30:04 PM us Nila Manuel MD ECG ORDERABLES Final Resul t [facility] from Last 3 Months Insurance [employer]EX SUPPLEMENT MEDICARE PART A & B [employer]EX SUPPLEMENT MEDICARE PART A & B [employer] MEDEX SUPPLEMENT MEDICARE PART A & B [employer] MEDEX SUPPLEMENT MEDICARE PART A & B [employer] MEDEX SUPPLEMENT MEDICARE PART A & B [employer] MEDEX SUPPLEMENT MEDICARE PART A & B Advance Directives For more information, please contact: [phone] (9AM - 5PM [facility], Thursday-Thursday) Documents on File Type Date Recorded Patient Practice Advisor Expl anation Healthcare Proxy 06/09/2025 12:40 PM * Full Code (Latest Code Status on File) Date Activated Date Inactivated Comments 06/05/2025 11:41 PM Question Answer Comments Code Status Confirmed With: Patient Care Teams Transplant Surgeon Relationship Specialty Start Date End Date Tony Hinton MD [address] [place] [phone] PCP - General Internal Medicine 08/12/24 Additional Source Comments The information contained in this document represents components of the legal health record. It is not the complete legal health record.[facility]
--- OUTSIDE RECORDS SUMMARY | 2025-06-09 17:03 | XMS_ITS | Encounter Summary ---
Author Organization [facility] Address [address] [place] [address] Phone Care Team Providers Care Lube Man Name Role Phone Tony Hinton MD Primary Care Provid er Encounter Details Date Type Department Care Team (Late st Contact Info) Description 06/05/2025 Procedure Pass [facility], Ct Scan - [address] [address] Social History Tobacco Use Types Packs/Day Years [...] is your housing situation today? I have yein sing 06/05/2025 How many times have you [...] PM EDT documented as of this encounter Functional Status * Calculated C-SSRS Risk Score (Lifetime/Recent) Answer Date of Assessment Author No Risk Indicated 06/05/2025 10:56 PM EDT Elena Puentes RN * [place] Suicide Severity Rating Scale (Screener/Recent Self-Report) Question Answer Date of Assessment Author 1. Wish to be (Past 1 Month) No 06/05/2025 10:56 PM EDT Elena Reyes RN 2. Non-Specific Active Suicidal Thoughts (Past 1 Month) No 06/05/2025 10:56 PM EDT Elena Reyes RN 6. Suicidal Behavior (Lifetime) No 06/05/2025 10:56 PM EDT Elena Reyes RN documented as of this encounter Plan of Treatment Not on file documented as of this encounter Visit Diagnoses Not on filedocumented in this encounter Care Teams Lube Man Relationship Specialty Start Date End Date Tony Hinton MD [address] [place] [phone] PCP - General Internal Medicine 08/12/24 documented as of this encounter Additional Source Comments The information contained in this document represents components of the legal health record. It is not the complete legal health record.[facility]
--- OUTSIDE RECORDS SUMMARY | 2025-06-09 17:03 | XMS_ITS | Encounter Summary ---
Author Organization [facility] Address [address] [place] [phone] Phone Care Team Providers Care Staff Forester Name Role Phone Tony Hinton MD Primary Care Provid er Encounter Details Date Type Department Care Team (Late st Contact Info) Description 06/05/2025 Procedure Pass [facility], [address] [address] Social History Tobacco Use Types Packs/Day Years [...] 10:56 PM EDT Elena Puentes RN * [place] Suicide Severity Rating Scale (Screener/Recent Self-Report) Question [...] on filedocumented in this encounter Care Teams Staff Forester Relationship Specialty Start Date End Date Tony Hinton MD [address] [place] [id number] PCP - General Internal Medicine 08/12/24 documented as of this encounter Additional Source Comments The information contained in this document represents components of the legal health record. It is not the complete legal health record.[facility]
== END 2025-06-09 14:56 | disposition home or self-care (01) ==
LOC: HO.HNS 14:05
PROVIDERS: PCP Internal Medicine; Visit Provider Neurological Surgery
DX: M48.062 Spinal stenosis, lumbar region with neurogenic claudication (principal); Z98.890 Other specified postprocedural states
CPT/HCPCS: 99213

== ENCOUNTER 2025-06-09 14:04 | Outpatient (REF) | payer MEDICARE, SELFPAY ==
--- NOTE | ~2025-06-09 | XR_ITS ---
EXAMINATION: XR LUMBOSACRAL SPINE CLINICAL INFORMATION: M48.062 - Spinal stenosis, lumbar region with neurogenic claudication COMPARISON: July 01, 2023 TECHNIQUE: Lateral views in neutral, flexion and extension position. AP view. FINDINGS: Grade 1 anterolisthesis L4-5 in neutral position which maintains during flexion and extension position. Grade 1 retrolisthesis at L1 to in neutral position which persists during flexion and extension position. Multilevel marginal osteophyte formation and endplate sclerosis throughout the axial skeleton. Mild levoconvex curvature of the upper lumbar spine. Metallic device CT in the posterior spinous processes of L4-5, unchanged. Vascular calcifications, aorta. XR/XR lumbar spine 4V min IMPRESSION: No gross instability. Multilevel spondylosis and mild levoconvex scoliosis. Grade 1 anterolisthesis L4-5. Grade 1 retrolisthesis L1 to Electronically signed by: Soto Dumont MD 06/09/2025 03:36 PM EDT
== END 2025-06-09 14:05 | disposition home or self-care (01) ==
LOC: HO.HOSX 14:04
PROVIDERS: PCP Internal Medicine; Visit Provider Neurological Surgery
DX: M48.062 Spinal stenosis, lumbar region with neurogenic claudication (principal); Z98.890 Other specified postprocedural states
CPT/HCPCS: 72110; 99212

== ENCOUNTER → 2025-06-09 15:22 | Outpatient (BNV) | payer MEDICARE, SELFPAY | PROVIDERS: PCP Internal Medicine; Visit Provider Radiology Diagnostic Radiology | DX: M47.816 Spondylosis without myelopathy or radiculopathy, lumbar region (principal) | CPT/HCPCS: 72110 ==

== ENCOUNTER 2025-07-05 14:23 | Outpatient (AMB) | payer MEDICARE, SELFPAY ==
--- NOTE | 2025-07-05 15:27 | A.SPINEOV_ITS ---
Intake Visit Reasons: discuss MRI Intake Note: Mr. Ruiz is here today to Discuss the results to his MRI done at [place]. Finance Business Partner Required: No Allergies dulaglutide (From Trulicity) Allergy (Intermediate, Verified 06/09/25 14:57) Nausea and Vomiting rosuvastatin (From Crestor) Allergy (Verified 06/09/25 14:57) Muscle Pain simvastatin Allergy (Verified 06/09/25 14:57) Muscle Pain Assessment & Plan Assessment & Plan (1) Lumbar stenosis with neurogenic claudication: Code(s): M48.062 - Spinal stenosis, lumbar region with neurogenic claudication Category: Medical Plan Dear colleague, On 07/05/2025, I saw Roxane Ruiz to discuss MRI results of the lumbar spine. As you know he underwent an L4-5 decompression with coflex insertion in April 2023, which gave him a good relief from his neurogenic claudication symptoms. Unfortunately, the symptoms are returning. The pain radiates from the back down to the lateral and frontal side of his thighs. We repeated MRI that shows mild to moderate L2-3 spinal stenosis. The operative area is well decompressed. I would like to send him for an L2-3 epidural steroid injection to see if we can localize the symptoms to this segment. He will return to my clinic after the injection is done. I spent 15 minutes in his consult review imaging and discussing plan of care. Chema Coffey MD, PhD Spine Fellowship Trained Neurosurgeon Director, [facility] Orders: Referrals Pain Management Referral M48.062 - Spinal stenosis, lumbar region with neurogenic claudication Coding Level of Care Code Est Pt Level 3 (63735) Diagnoses Lumbar stenosis with neurogenic claudication M48.062
== END 2025-07-05 16:33 | disposition home or self-care (01) ==
LOC: HO.HNS 14:23
PROVIDERS: PCP Internal Medicine; Visit Provider Neurological Surgery
DX: M48.062 Spinal stenosis, lumbar region with neurogenic claudication (principal)
CPT/HCPCS: 99213

== ENCOUNTER → 2025-07-05 14:23 | Outpatient (BNVA) | payer MEDICARE, SELFPAY | PROVIDERS: PCP Internal Medicine; Visit Provider Neurological Surgery | DX: M48.062 Spinal stenosis, lumbar region with neurogenic claudication (principal) | CPT/HCPCS: 99212 ==

== ENCOUNTER 2025-07-28 08:50 | Day surgery (SDC) | payer MEDICARE, SELFPAY ==
--- NOTE | 2025-07-25 13:47 | HO.ANESPROP2 ---
Documented by User: Ana Tejada NP 07/26/25 08:57 HPI - Anesthesia Eval Consult details Narrative: 75 yr old male for L2-L3 Interlaminar epidural steroid injection H/O CABG 2020: follows with [facility] cardiology, last visit 06/28/25, has persistent dyspnea without clear cardiac etiology. Repeat exercise stress testing & echo without clear culprit for symptoms. See up to date testing below. Sleep study recommended. Avoid beta blockers. ED visit 06/05/25 with ataxia, dizziness: work up included brain MRI, head/neck CTA, had neuro televisit. Work up was unremarkable, ?vestibular etiology, consider ENT follow up vs related to beta-yesenia re-initiation. Anesthesia Pre-Procedure Meds Is the patient on any of the following meds?: GLP1/DPP4 PMFSH Active Problems Active Problems: All Active Problems (Updated 04/20/23 @ 12:24 by Baylee Hinton RN) Status post lumbar spine surgery for decompression of spinal cord (Acute) Lumbar stenosis with neurogenic claudication (Acute) Past Medical History Medical History Habitual snoring On beta yesenia at home Trigger finger, right ring finger Prostate cancer Vertigo Sexual dysfunction, unspecified Peripheral autonomic neuropathy Obesity, Class I, BMI 30.0-34.9 (see actual BMI) Bilateral hip pain Carpal tunnel syndrome CKD (chronic kidney disease) HLD (hyperlipidemia) HTN (hypertension) Diabetes CAD (coronary artery disease) Family History Family history of problems with anesthesia: No Surgical History Surgical History History of carpal tunnel surgery of left wrist History of surgery on left wrist Hx of elbow surgery Hx of adenoidectomy H/O colonoscopy Hx of prostatectomy Hx of tonsillectomy Hx of right knee surgery Hx of left knee surgery Hx of CABG History of Problems with Anesthesia: No Social History Social History Are you a primary live in caregiver to a significant other at home: No Do you presently have visiting nurse or other home services: No Patient Tobacco Use Status: Never used Tobacco Use of substances other than those prescribed or required for medical reasons: No Advance Directives: No Advance Directives Information Provided: Yes Meds Allergies Allergy/AdvReac Type Severity Reaction Status Date / Time dulaglutide (From Trulicity) Allergy Intermediate Nausea and Verified 06/09/25 14:57 Vomiting rosuvastatin (From Crestor) Allergy Muscle Pain Verified 06/09/25 14:57 simvastatin Allergy Muscle Pain Verified 06/09/25 14:57 Home Medications ?Medication ?Instructions ?Recorded ?Confirmed ?Last Taken ?Type metformin 1,000 mg tablet 1,000 mg PO BID 01/20/23 07/26/25 Unknown History aspirin 81 mg tablet,delayed 81 mg PO DAILY 04/17/23 07/26/25 Unknown History release atorvastatin 40 mg tablet 40 mg PO BEDTIME 04/17/23 07/26/25 Unknown History cholecalciferol (vitamin D3) 50 50 mcg PO DAILY 04/17/23 07/26/25 Unknown History mcg (2,000 unit) capsule (Vitamin D3) insulin degludec 100 unit/mL 40 unit subcut DAILY 04/17/23 07/26/25 Unknown History subcutaneous solution (Tresiba U-100 Insulin) metoprolol succinate 50 mg 50 mg PO DAILY 04/17/23 07/26/25 Unknown History tablet,extended release 24 hr semaglutide 0.25 mg or 0.5 mg (2 0.25 mg subcut QWEEK 04/20/23 07/26/25 Unknown History mg/3 mL) subcutaneous pen injector (Ozempic) Exam Pertinent Lab Results Pertinent Lab Results: Labs from [facility] 05/2025 Narrative Narrative: EKG 04/2025 Sinus rhythm with 1st degree A-V block Possible anterior infarct, age undetermined T wave abnormality, consider inferior ischemia When compared with ECG 04/21/23 T wave inversion no longer evidence in anterolateral leads Stress Test- Myocard perf 01/2024 Normal distribution of tracer in myocardium at rest and after max treadmill stress. No evidence of myocardial ischemia. There is normal left ventricular function with EF greater than 65% at rest and after stress. ECHO 06/13/25 The left ventricular size is normal. The left ventricular wall thickness is mildly increased. There is mild basal septal hypertrophy. Vigorous LV systolic function. EF is 69% by biplane method. There are no regional wall motion abnormalities. There is mid cavity obliteration with systole without obstruction. Normal diastolic function. Right ventricle size and function appears grossly normal. CT angio head & neck 05/2025 Impression 1. ?No acute intracranial findings on noncontrast head CT. 2. ?Mild bilateral calcified plaque of the intracranial vessels. Mild stenosis of the proximal left posterior cerebral artery. No occlusion. 3. ?Mild bilateral calcified plaque of the neck. No significant stenosis of the neck vessels. Assessment and Plan Final Anesthetic Review Family History of Problems with Anesthesia: No History of Problems with Anesthesia: No Documented by User: Brie Jacinto MD 07/28/25 09:05 [facility] Past Medical History Medical History Habitual snoring On beta yesenia at home Trigger finger, right ring finger Prostate cancer Vertigo Sexual dysfunction, unspecified Peripheral autonomic neuropathy Obesity, Class I, BMI 30.0-34.9 (see actual BMI) Bilateral hip pain Carpal tunnel syndrome CKD (chronic kidney disease) HLD (hyperlipidemia) HTN (hypertension) Diabetes CAD (coronary artery disease) Surgical History Surgical History History of carpal tunnel surgery of left wrist History of surgery on left wrist Hx of elbow surgery Hx of adenoidectomy H/O colonoscopy Hx of prostatectomy Hx of tonsillectomy Hx of right knee surgery Hx of left knee surgery Hx of CABG Social History Social History Are you a primary live in caregiver to a significant other at home: No Do you presently have visiting nurse or other home services: No Patient Tobacco Use Status: Never used Tobacco Use of substances other than those prescribed or required for medical reasons: No Advance Directives: No Advance Directives Information Provided: Yes Meds Allergies Allergy/AdvReac Type Severity Reaction Status Date / Time dulaglutide (From Trulicity) Allergy Intermediate Nausea and Verified 06/09/25 14:57 Vomiting rosuvastatin (From Crestor) Allergy Muscle Pain Verified 06/09/25 14:57 simvastatin Allergy Muscle Pain Verified 06/09/25 14:57 Home Medications ?Medication ?Instructions ?Recorded ?Confirmed ?Last Taken ?Type metformin 1,000 mg tablet 1,000 mg PO BID 01/20/23 07/26/25 Unknown History aspirin 81 mg tablet,delayed 81 mg PO DAILY 04/17/23 07/26/25 Unknown History release atorvastatin 40 mg tablet 40 mg PO BEDTIME 04/17/23 07/26/25 Unknown History cholecalciferol (vitamin D3) 50 50 mcg PO DAILY 04/17/23 07/26/25 Unknown History mcg (2,000 unit) capsule (Vitamin D3) insulin degludec 100 unit/mL 40 unit subcut DAILY 04/17/23 07/26/25 Unknown History subcutaneous solution (Tresiba U-100 Insulin) metoprolol succinate 50 mg 50 mg PO DAILY 04/17/23 07/26/25 Unknown History tablet,extended release 24 hr semaglutide 0.25 mg or 0.5 mg (2 0.25 mg subcut QWEEK 04/20/23 07/26/25 Unknown History mg/3 mL) subcutaneous pen injector (Ozempic) Exam Airway Mallampati Class: III TM Dist: <=3cm Neck ROM: Limited Heart: rrr Lungs: cta Assessment and Plan Assessment Anesthesia Assessment: Anesthesia Plan Discussed and Chart Reviewed Final Anesthetic Review NPO: Yes ASA Class: III Final Preanesthetic Review: No Changes in Pt Med Stat, Meds/Allgs Chart Reviewed, Consent Obtained/Reviewed and Anes Risks/Benef Reviewed Patient Risk: Intermediate Procedure Risk: Low Anesthetic Plan Anesthetic Plan: MAC: Disposition: Standard PACU
[2025-07-26 14:49] VITALS: BMI 28.5
--- NOTE | ~2025-07-28 | FL_ITS ---
EXAMINATION: FL GUIDANCE ONLY HISTORY: L2,L3 Interlaminar Epidural Steroid Injection COMPARISON: None available. TECHNIQUE: Fluoroscopy time: 33 seconds. Cumulative Dose: 12.20 mGy. DAP: 320.38 uGym2 Images: 4. FINDINGS: Fluoroscopic spot films of the lumbar spine demonstrate a needle in place and intrathecal contrast material. FL/FL guidance in OR IMPRESSION: Fluoroscopy during procedure. Please see procedure report for additional information. Electronically signed by: Kirill Price MD 07/28/2025 10:18 AM EDT
[2025-07-28 09:01] VITALS: BMI 29.4
[2025-07-28 09:10] VITALS: BP 149/102; PULSE 71; RESP 16; TEMP 36.8; O2SAT 98
--- NOTE | 2025-07-28 09:13 | MHC.SHP ---
Pre-Procedural Eval Section A - 24 Hr Update-Section A only Date of Service: 07/28/25 The patient is an INPATIENT: No Changes since office visit: Yes Patient answered all questions The patient has been examined within 24 hours of the surgical procedure. The History & Physical has been completed within 30 days and I have reviewed it.: No Section B - Complete if H&P > 30 days Chief Complaint: Spinal stenosis, lumbar region with neurogenic cla Details of Present Illness: as above Relevant Family History (Specify if Yes): No Relevant Social History: None Present Medications: see Short Stay Collaborative assessment Medical History: No relevant PMH History of Previous Operations: Relevant previous surgery/procedure and date(s) Allergies: Allergies Allergy/AdvReac Type Severity Reaction Status Date / Time dulaglutide (From Trulicity) Allergy Intermediate Nausea and Verified 06/09/25 14:57 Vomiting rosuvastatin (From Crestor) Allergy Muscle Pain Verified 06/09/25 14:57 simvastatin Allergy Muscle Pain Verified 06/09/25 14:57 Review of Systems Sugical H&P ROS: Negative: Constitution, Cardiovascular, Respiratory, Neurological, Psychiatric, Hem-Onc, Allergic/Immunologic, Gastrointestinal, Genitourinary, Musculoskeletal, Integumentary, Endocrine and Eyes/Ears/Nose/Throat Exam Surgical H&P Exam: Normal: HEENT, Normal: Heart, Normal: Lungs, Normal: Extremities, Normal: Abdomen, Normal: Skin and Normal: Neurological Plan Diagnosis/Plan: Unchanged I have reviewed the history and physical and performed a pertinent physical examination on my patient. No changes have occurred unless specified. Time Spent With Patient Time: Total time managing care of this patient today ____ minutes.
[2025-07-28 09:15] LABS: Glucose, Whole Blood 188 mg/dL (60-115)
--- NOTE | 2025-07-28 09:35 | P.BOP_ITS ---
Brief Operative Note Date of Service: 07/28/25 Pre-op diagnosis: Radiculopathy lumbar, spinal stenosis. Post-op diagnosis: same Procedure: L2-L3 epidural steroid injection. Surgeon: Jean Paul Saucedo MD Anesthesia: MAC Was an Equipment Hire Manager used for this Procedure?: No Estimated blood loss (mL): 0 Condition: stable Disposition: PACU
--- NOTE | 2025-07-28 09:37 | W.PM.OPN ---
Operative Note Operative Note Date of Service: 07/28/25 Narrative: Interlaminar L2-L3 epidural steroid injection. Informed consent was thoroughly explained to the patient before the procedure.? The patient came to the operating room.? He was positioned prone on operating table with a pillow under his abdomen.? ASA monitors were applied and patient was moderately sedated. Time-out was performed delineating correct site and side of the procedure, nature of the injection, name and date of of the patient. The lower back of the patient was prepped with ChloraPrep and draped with sterile utility towels.? C-arm was brought over the operating field and sq picture of L3 vertebra was demonstrated on the screen.? The upper margin of the left lamina of the L3 vertebra was chosen as initial target of the injection. The projection of the target to the skin was injected with small amount of lidocaine 1% forming a skin wheal. After that 20 gauge Touhy needle was inserted through the skin wheal and it was advanced to were the L2-L3 epidural interspace under intermittent anterior posterior and lateral views using loss of resistance to air technique as the indication of the epidural space. When loss of resistance is felt and the tip of the needle needle was positioned 2 mm beyond interlaminar line on the lateral view injection of the contrast was performed delineating an epidurogram. After that injection of the 5 cc of lidocaine 1% mixed with Kenalog 40 mg was performed into the needle. After that needle was withdrawn and Band-Aid was applied. Patient tolerated procedure well.
[2025-07-28 09:42] VITALS: BP 122/69; PULSE 77; RESP 18; TEMP 36.2; O2SAT 92
[2025-07-28 09:47] VITALS: BP 120/65; PULSE 70; RESP 16; O2SAT 93
[2025-07-28 09:57] VITALS: BP 122/62; PULSE 67; RESP 15; O2SAT 92
[2025-07-28 10:00] VITALS: BP 131/66; PULSE 66; RESP 16; O2SAT 94
[2025-07-28 10:10] VITALS: BP 127/60; PULSE 67; RESP 16; TEMP 36.1; O2SAT 94
--- NOTE | 2025-07-28 10:28 | PC.NURSE ---
patient reported bilateral thigh numbess while getting dressed. Patient able to stand but gait unsteady. Reached out to Dr. Saucedo awaiting response.
== END 2025-07-28 11:54 | disposition home or self-care (01) ==
PROVIDERS: PCP Internal Medicine; Visit Provider Anesthesiology
PROC: 3E0R33Z Introduction of Anti-inflammatory into Spinal Canal, Percutaneous Approach (ICD-10-PCS; CPT 62323; principal; 2025-07-28 10:20)
DX: M48.062 Spinal stenosis, lumbar region with neurogenic claudication (principal); E11.22 Type 2 diabetes mellitus with diabetic chronic kidney disease; I12.9 Hypertensive chronic kidney disease with stage 1 through stage 4 chronic kidney disease, or unspecified chronic kidney disease; N18.9 Chronic kidney disease, unspecified; E78.5 Hyperlipidemia, unspecified; I25.10 Atherosclerotic heart disease of native coronary artery without angina pectoris; Z95.1 Presence of aortocoronary bypass graft; Z79.4 Long term (current) use of insulin; Z79.82 Long term (current) use of aspirin; Z79.84 Long term (current) use of oral hypoglycemic drugs; Z79.85 Long-term (current) use of injectable non-insulin antidiabetic drugs; Z79.899 Other long term (current) drug therapy; Z88.8 Allergy status to other drugs, medicaments and biological substances
CPT/HCPCS: 62323; 82947; J2003; J2250; J2704; J3301; Q9965; Q9967

== ENCOUNTER → 2025-07-28 08:50 | Outpatient (BNV) | payer MEDICARE, SELFPAY | PROVIDERS: PCP Internal Medicine; Visit Provider Anesthesiology | DX: M54.16 Radiculopathy, lumbar region (principal) | CPT/HCPCS: 62323 ==

== ENCOUNTER 2025-08-16 14:10 | Outpatient (AMB) | payer MEDICARE, SELFPAY ==
--- NOTE | 2025-08-16 14:15 | HO.SPINEOV ---
Intake Visit Reasons: 3 wks f/u after injection Intake Note: Mr. Ruiz is here today for a 3 weeks F/u after injections. Bird Keeper Required: No Allergies dulaglutide (From Trulicity) Allergy (Intermediate, Verified 06/09/25 14:57) Nausea and Vomiting rosuvastatin (From Crestor) Allergy (Verified 06/09/25 14:57) Muscle Pain simvastatin Allergy (Verified 06/09/25 14:57) Muscle Pain Assessment & Plan Assessment & Plan (1) Status post lumbar spine surgery for decompression of spinal cord: Code(s): Z98.890 - Other specified postprocedural states Category: Surgical Plan HPI: Roxane is a pleasant 75 year old male who comes in today in follow up. To recap he previously underwent L4-5 lumbar decompression with Koflex implantation in April 2023. He reported good resolution of his neurogenic claudication after this surgery. Unfortunately, he returned to clinic for her current symptoms and was evaluated by Dr. Coffey. After reviewing his MRI imaging Dr. Coffey had him referred to our colleagues in pain management for L3-4 injection. He comes in today about 3 weeks out from his injection. He reports that he had a somewhat strange response to his injection. He reports directly after for the first few hours he was completely numb from the waist down. Thankfully this self resolved. Thereafter he reports no relief of his pain for the first 6 days. On day 7 he was completely pain free, and spent the day working on his car without issue. Then day 8 his pain returned. When describing his pain he reports it only occurs when ambulating. When sitting down during our conversation he is pain-free. When ambulating he states his pain starts. He reports the pain is well localized to his right low back and anterior thighs. He describes the pain as a cramping sensation when walking. He has to sit down to rest after walking about half a block. When describing the pain further he point directly to the right SI joint area, which we would commonly associate with a (+) Crispin finger test on the right. Exam: On examination he ambulates slightly hunched over but without an antalgic or spastic gait. He rises from a seated position without difficulty and gets up onto the examination table without issue. He reports some hypoesthesia to light touch over the left lateral thigh, but reports no other sensational deficits to light touch during examination. His bilateral patella reflexes are 1+ hypoactive. The rest of his reflexes are intact. His strength is 5/5 full in his upper and lower extremities. (-) gaenslen's, (-) SI joint compression test, (-) Jorge's, (-) Bilateral straight leg raise. Plan: Pleasant 75 year old male who comes in today in follow up after previously having L4-5 lumbar decompression with Koflex implantation completed by Dr. Coffey in April 2023. It sounds like he had some single day transient response to his injection about 1 week after having it. Overall he did not seem to respond positively to it. I believe his persistent symptoms may be coming from the L4-5 segment. We discussed the possibility of Lumbar fusion vs. repeat lumbar decompression. He seems more amenable to the idea of repeat decompression. I evaluated the patient alongside my attending Neurosurgeon Dr. Coffey who belives the patient may be suffering from micro-instability at this level that cannot be seen adequately on X-ray imaging. He offered the patient L4-5 oblique lumbar interbody fusion. He was quoted at 50% chance of providing symptom relief given the overall improvement of compression seen at L4-5 compared to previous imaging, despite the patients recurrence of symptoms. The patient wishes to take some time to think about this and will call us if he wishes to proceed. Christiano Coffey MD,PhD [facility] Coding Level of Care Code Est Pt Level 3 (78855) Diagnoses Status post lumbar spine surgery for decompression of spinal cord Z98.890
--- OUTSIDE RECORDS SUMMARY | 2025-08-17 02:40 | XMS_ITS | Encounter Summary ---
Author Organization [facility] Address [address] [place] [phone] Phone Care Team Providers Care Engineering Project Manager Name Role Phone Tony Hinton MD Primary Care Provid er Encounter Details Date Type Department Care Team (Late st Contact Info) Description 06/05/2025 Procedure Pass [facility], Ct Scan - [address] [address] Social History Tobacco Use Types Packs/Day Years [...] 10:56 PM EDT Elena Puentes RN * [place] Suicide Severity Rating Scale (Screener/Recent Self-Report) Question Answer Date of Assessment Author 1. Wish to be (Past 1 Month) No 06/05/2025 10:56 PM EDT Elena Reyes RN 2. Non-Specific Active Suicidal Thoughts (Past 1 Month) No 06/05/2025 10:56 PM EDT Elena Reyes, MARILEE 6. Suicidal Behavior (Lifetime) No 06/05/2025 10:56 PM EDT Elena Reyes RN documented as of this encounter Plan of Treatment Upcoming Encounters Date Type Department Care Team ([facility] st Contact Info) Description 03/15/2026 1:15 PM EDT Appointment [facility] [address] [place] [address] [address]nd Floor, [address] [place] [address] Myra Bell MD [address] [place] [address] [email or web address] 03/15/2026 2:00 PM EDT Office Visit [facility] [address], [address] [place] [address] Myra Bell MD [address] [phone] [place] [address] [email or web address] documented as of this encounter Visit Diagnoses Not on filedocumented in this encounter Care Teams Engineering Project Manager Relationship Specialty Start Date End Date Tony Hinton MD [address] [place] [phone] PCP - General Internal Medicine 08/12/24 documented as of this encounter Additional Source Comments The information contained in this document represents components of the legal health record. It is not the complete legal health record.[facility]
--- OUTSIDE RECORDS SUMMARY | 2025-08-17 02:40 | XMS_ITS | Encounter Summary ---
Author Organization [facility] Address [address] [facility] [address] [place] [address] Phone Care Team Providers Care Mechanic Field Service Name Role Phone Tony Hinton MD Primary Care Provid er Encounter Details Date Type Department Care Team (Late st Contact Info) Description 06/05/2025 Procedure Pass [facility], [address] [address] Social History Tobacco Use Types Packs/Day Years [...] 10:56 PM EDT Elena Puentes RN * Robertson Suicide Severity Rating Scale (Screener/Recent Self-Report) Question Answer Date of Assessment Author 1. Wish to be (Past 1 Month) No 06/05/2025 10:56 PM EDT Elena Reyes RN 2. Non-Specific Active Suicidal Thoughts (Past 1 Month) No 06/05/2025 10:56 PM EDT Elena Reyes, MARILEE 6. Suicidal Behavior (Lifetime) No 06/05/2025 10:56 PM EDT Elena Reyes, MARILEE documented as of this encounter Plan of Treatment Upcoming Encounters Date Type Department Care Team (Late st Contact Info) Description 03/15/2026 1:15 PM EDT Appointment [facility] [address] [place] [address], 2nd Floor, [address] [place] [address] Myra Bell MD [address] [place] [address] [email or web address] 03/15/2026 2:00 PM EDT Office Visit [facility] [address] [facility], 2nd Floor, [address] [place] [address] Myra Bell MD [address] [facility] [id number] [address] [place] [address] [email or web address] documented as of this encounter Visit Diagnoses Not on filedocumented in this encounter Care Teams Mechanic Field Service Relationship Specialty Start Date End Date Tony Hinton MD [address] [facility] [address] [place] [phone] PCP - General Internal Medicine 08/12/24 documented as of this encounter Additional Source Comments The information contained in this document represents components of the legal health record. It is not the complete legal health record.[facility]
--- OUTSIDE RECORDS SUMMARY | 2025-08-17 02:40 | XMS_ITS | Encounter Summary ---
Author Organization [facility] Address [address] [place] [address] Phone Care Team Providers Care Flap Maker Name Role Phone Tony Hinton MD Primary Care Provid er Encounter Details Date Type Department Care Team (Late st Contact Info) Description 07/21/[address] [facility] [address] [facility], 2nd Floor, [address] [place] [address] Myra Bell MD [address] [facility] [id number] [address] [place] [address] [email or web address] LEY (dyspnea on exertion) (Primary Dx) Social History Tobacco Use Types [...] PM EDT documented as of this encounter Plan of Treatment Upcoming Encounters Date Type Department Care Team (Late st Contact Info) Description 03/15/2026 1:[address] [facility] [address] [facility], 2nd Floor, [address] [place] [address] Myra Bell MD [address] [facility] [id number] [address] [place] [address] [email or web address] 03/15/2026 2:00 PM EDT Office Visit [facility] [address] [facility], 2nd Floor, [address] [place] [address] Myra Bell MD [address] [facility] [id number] [address] [place] [address] [email or web address] Scheduled Orders Name Type Priority Associated Diagnoses Orde r Schedule Pulmonary Function Test Reason for Exam: Dyspnea/Shortness of Breath; Type of PFT Test: DLCO, Spirometry with bronchodilator, Lung Volumes PFT Routine LEY (dyspnea on exertion) Expected: 07/21/2025, Expires: 07/21/2027 documented as of this encounter Visit Diagnoses Diagnosis LEY (dyspnea on exertion)- Primary Other dyspnea and respiratory abnormality documented in this encounter Care Teams Flap Maker Relationship Specialty Start Date End Date Tony Hinton MD [address] [facility] [address] [place] [phone] PCP - General Internal Medicine 08/12/24 documented as of this encounter Additional Source Comments The information contained in this document represents components of the legal health record. It is not the complete legal health record.[facility]
--- OUTSIDE RECORDS SUMMARY | 2025-08-17 02:40 | XMS_ITS | Clinical Summary ---
Author Organization [facility] Address [address] [place] [address] Phone Care Team Providers Care Analysis Manager Name Role Phone Tony Hinton MD [...] mouth 2 (two) times a day. 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 earlier in the year [...] Encounters Date Type Department Care Team Description 07/21/2025 Orders Only [facility] [address] [facility], 2nd Floor, [address] [place] [address] Myra Bell MD DOE (dyspnea on exertion) (Primary Dx) 06/29/2025 Transcribe Orders [facility] [address] [facility], 2nd Floor, [address] [place] [address] Tony Hinton MD 06/05/2025 4:51 PM EDT - 06/06/2025 6:43 PM EDT Hospital Encounter [facility] [address] [place] [address] Tory Stack MD Israeli, Diana A, DO McKenna-Weiss, Eli, MD Green, Tracy L, MD Preliminary, Preliminary, PhD Discharge Disposition: Home or Self Care 06/05/2025 Procedure Pass [facility], Mri - [address] [address] 06/05/2025 Procedure Pass [facility], Ct Scan - [address] [address] from Last 3 Months Immunizations Immunization Administration [...] 06/05/2025 12:51 PM EDT Plan of Treatment Upcoming Encounters Date Type Department Care Team (Late st Contact Info) Description 03/15/2026 1:15 PM EDT Appointment [facility] [address] [facility], 2nd Floor, [address] [place] [address] Myra Bell MD [address] [place] [address] [email or web address] 03/15/2026 2:00 PM EDT Office Visit [facility] [address] [facility], 2nd Floor, [address] [place] [address] Myra Bell MD [address] [place], [place] [address] [place] [address] [email or web address] Health Maintenance Due Date Last Done Comments Adult Td,Tdap Booster 1950 BLOOD PRESSURE 1951 DEPRESSION SCREENING 1963 HEPATITIS C SCREENING 1969 PNEUMOCOCCAL VACCINES (50+ years) (1 of 2 - PCV) 1970 COLOGUARD 1996 COLONOSCOPY 1996 COLORECTAL CANCER SCREENING 1996 FIT TEST 1996 FOBT 1996 SIGMOIDOSCOPY 1996 VIRTUAL COLONOSCOPY 1996 RSV VACCINE (1 - Risk 50-74 years 1-dose series) 2001 ZOSTER VACCINES (1 of 2) 2001 INFLUENZA VACCINE (#1) 2025 COVID-19 VACCINE (1 - 2024-2 6 season) 2025 DIABETIC EYE EXAM 06/06/2025 HEMOGLOBIN [...] EDT PTT Routine 06/06/2025 6:15 AM EDT THYROID STIMULATING HORMONE (TSH) Routine 06/06/2025 6:15 AM EDT CBC AND DIFFERENTIAL Routine 06/06/2025 6:15 AM EDT PHOSPHORUS Routine 06/06/2025 6:15 AM EDT MAGNESIUM Routine 06/06/2025 6:15 AM EDT BASIC METABOLIC PANEL (BMP) Routine 06/06/2025 6:15 AM EDT POCT GLUCOSE Routine 06/06/2025 12:02 AM EDT URINE SEDIMENT STAT 06/05/2025 7:46 PM EDT TOXICOLOGY SCREEN, URINE STAT 06/05/2025 7:46 PM EDT URINALYSIS WITH REFLEX TO URINE CULTURE STAT 06/05/2025 7:[address] ANGIO HEAD WITH AND WITHOUT CONTRAST, CT ANGIO NECK WITH CONTRAST STAT 06/05/2025 7:13 PM EDT POCT GLUCOSE Routine 06/05/2025 6:29 PM EDT HEMOGLOBIN A1C STAT 06/05/2025 6:19 PM EDT SEDIMENTATION RATE (ESR) STAT 06/05/2025 6:19 PM EDT C-REACTIVE PROTEIN (CRP), HIGH SENSITIVITY STAT 06/05/2025 6:19 PM EDT [...] 06/05/2025 1:07 PM EDT BASIC METABOLIC PANEL (BMP) STAT 06/05/2025 1:07 PM EDT ECG 12-LEAD STAT 06/05/2025 12:52 PM EDT from Last 3 Months Results * (ABNORMAL) POCT Glucose (06/06/2025 4:50 PM EDT) Only the most recent of5 resultswithin the time period is included. Glucose, POCT 183(H) 70 - 100 mg/dL [facility] 06/06/2025 4:50 PM EDT 06/06/2025 4:52 PM EDT us Kemi Matias MD POINT OF CARE TEST ORDERABLES F inal Result Performing Organization Address City/State/[facility] Co de Phone Number [address] [address] * MRI BRAIN WITHOUT CONTRAST (06/06/2025 4:40 PM EDT) Anatomical Region Laterality Modality Head Magnetic Resonan ce 06/06/2025 4:43 PM EDT Impressions 06/06/2025 4:49 PM EDT 1. Probable moderate chronic small vessel disease. No acute or subacute infarct. Narrative 06/06/2025 4:49 PM EDT MRI BRAIN WITHOUT CONTRAST Referring clinician's provided indication for this examination in Epic: * Neuro deficit, acute, stroke suspected; ataxia [...] provided indication for this examination in Epic: *Neuro deficit, acute, stroke suspected; ataxia x10 [...] chronichypertensive-related microhemorrhage. There are scattered foci of [id number] in the white matter, likely a manifestation [...] EDT) APTT 29.8 25.1 - 36.5 sec [facility] Comment:APTT response to unf ractionated heparin concentrations between 0.3 and 0.7 IU/mL is typically 54.0-94.0 seconds in uncomplicated cases. The Anti-Xa assay is the preferred method. Blood 06/06/2025 6:15 AM EDT 06/06/2025 6:50 AM EDT Elmira Lechuga DO LAB BLOOD BKR ORDERABLES Tegan l Result [address] [address] * PT-INR (06/06/2025 6:15 AM EDT) Only the most recent of2 resultswithin the time period is included. PT 11.2 10.2 - 12.9 sec [facility] INR 0.9 0.9 - 1.1 [facility] Comment:Therapeutic range fo r oral Vitamin K antagonists: 2.0-3.5 Blood 06/06/2025 6:15 AM EDT 06/06/2025 6:50 AM EDT us Elmira Lechuga DO LAB BLOOD BKR ORDERABLES Tegan bales Result [address] [address] * (ABNORMAL) CBC and differential (06/06/2025 6:15 AM EDT) Only the most recent of2 resultswithin the time period is included. WBC 8.84 4.00 - 11.00 K/uL [facility] RBC 3.97(L) 4.50 - 5.90 M/uL [facility] HGB 12.6(L) 13.5 - 17.5 g/dL [facility] HCT 36.4(L) 41.0 - 53.0 % [facility] PLT 240 150 - 450 K/uL [facility] MCV 91.7 80.0 - 100.0 fL [facility] MCH 31.7(H) 27.0 - 31.0 pg [facility] MCHC 34.6 32.0 - 36.0 g/dL [facility] RDW 12.6 11.5 - 14.5 % [facility] MPV 10.4 8.4 - 12.0 fL [facility] NRBC 0.00 0.00 /100 WBCs [facility] ABSOLUTE NRBC 0.00 0.00 K/uL [facility] DIFF METHOD Auto [facility] NEUTS 63.6 48.0 - 76.0 % [facility] LYMPHS 26.2 18.0 - 41.0 % [facility] MONOS 6.9 4.0 - 11.0 % [facility] EOS 2.1 0.0 - 5.0 % [facility] BASOS 0.7 0.0 - 1.5 % [facility] Granulocytes, immature (%) 0.5 0.0 - 0.9 % [facility] ABSOLUTE NEUTS 5.62 1.92 - 7.60 K/uL [facility] ABSOLUTE LYMPHS 2.32 0.72 - 4.10 K/uL [facility] ABSOLUTE MONOS 0.61 0.16 - 1.10 K/uL [facility] ABSOLUTE EOS 0.19 0.00 - 0.50 K/uL [facility] ABSOLUTE BASOS 0.06 0.00 - 0.15 K/uL [facility] Granulocytes, immature 0.04 0.00 - 0.09 K/uL [facility] Blood 06/06/2025 6:15 AM EDT 06/06/2025 6:50 AM EDT us Elmira A Spanish DO LAB BLOOD BKR ORDERABLES Tegan l Result [address] [address] * (ABNORMAL) TSH (06/06/2025 6:15 AM EDT) TSH 4.25(H) 0.27 - 4.20 uIU/mL [facility] Blood 06/06/2025 6:15 AM EDT 06/06/2025 6:50 AM EDT us Elmira A Spanish DO LAB BLOOD BKR ORDERABLES Tegan l Result [address] [address] * Phosphorus (06/06/2025 6:15 AM EDT) PHOSPHORUS 3.1 2.7 - 4.5 mg/dL [facility] Blood 06/06/2025 6:15 AM EDT 06/06/2025 6:50 AM EDT Elmira A Spanish DO LAB BLOOD BKR ORDERABLES Tegan l Result Performing Organization Address City/[facility]/ZIP Co de Phone Number [address] [address] * Magnesium (06/06/2025 6:15 AM EDT) Only the most recent of2 resultswithin the time period is included. MAGNESIUM 1.8 1.6 - 2.6 mg/dL [facility] Blood 06/06/2025 6:15 AM EDT 06/06/2025 6:50 AM EDT [facility] A Spanish DO LAB BLOOD BKR ORDERABLES Tegan l Result Performing Organization Address [facility] de Phone Number [address] [address] * (ABNORMAL) Basic metabolic panel (06/06/2025 6:15 AM EDT) Only the most recent of2 resultswithin the time period is included. SODIUM 137 133 - 146 mmol/L [facility] CHLORIDE 105 96 - 108 mmol/L [facility] POTASSIUM 4.3 3.3 - 5.1 mmol/L [facility] CO2 22 21 - 35 mmol/L [facility] BUN 21(H) 6 - 19 mg/dL [facility] CREATININE 1.40 0.5 - 1.5 mg/dL [facility] GLUCOSE 159(H) 70 - 99 mg/dL [facility] CALCIUM 9.8 8.4 - 10.3 mg/dL [facility] EGFR 53(L) >59 mL/min/1.7 3m2 [facility] Comment:Estimated glomerular filtration rate calculated using the CKD-EPI refit equation. ANION GAP 14 10 - 20 mmol/L [facility] Blood 06/06/2025 6:15 AM EDT 06/06/2025 6:50 AM EDT Elmira Lechuga DO LAB BLOOD BKR ORDERABLES Tegan l Result Performing Organization Address [facility] Co de Phone Number [address] [address] * (ABNORMAL) Urinalysis w/reflex Urine Culture (06/05/2025 7:46 PM EDT) COLOR Yellow Yellow [facility] CLARITY Clear [facility] GLUCOSE Negative Negative [facility] BILI Negative Negative [facility] KETONES Negative Negative [facility] SPECIFIC GRAVITY 1.015 1.005 - 1.030 [facility] BLOOD Negative Negative [facility] PH 5.5 5.0 - 8.0 [facility] Protein-UA 1+(A) Negative [facility] NITRITE Negative Negative [facility] Leukocyte esterase, ur Negative Negative [facility] Urine (Urine) 06/05/2025 7:4 6 PM EDT 06/05/2025 8:47 PM EDT us Nila Manuel MD LAB URINE ORDERABLES Final Result Performing Organization Address [facility] Co de Phone Number [address] [address] * (ABNORMAL) Urine sediment (06/05/2025 7:46 PM EDT) WBC 0-4(A) NONE SEEN /hpf [facility] RBC 0-2(A) NONE SEEN /hpf [facility] URINE EPITHELIAL NONE SEEN NONE SEEN [facility] MUCUS 1+(A) NONE SEEN /hpf [facility] BACTERIA NONE SEEN NONE SEEN /hpf [facility] CRYSTALS Trace [facility] Comment:Calcium Oxalate CAST 0-2 [facility] Comment: HYALINE CAST 0-2 GRANULAR CAST 06/05/2025 7:46 PM EDT 06/05/2025 8:47 PM EDT us Nila Manuel MD LAB URINE ORDERABLES Final Result Performing Organization Address [facility] Co de Phone Number [address] [address] * Toxicology screen, urine (06/05/2025 7:46 PM EDT) URINE CANNABINOIDS NONE DETECTED NONE DETECTED [facility] Comment:Cutoff: 50 ng/mL URINE COCAINE METAB NONE DETECTED NONE DETECTED [facility] Comment:Cutoff: 300 ng/mL URINE AMPHETAMINES NONE DETECTED NONE DETECTED [facility] Comment:Cutoff: 1000 ng/mL URINE METHADONE NONE DETECTED NONE DETECTED [facility] Comment:Cutoff: 300 ng/mL URINE OPIATES NONE DETECTED NONE DETECTED [facility] Comment:Cutoff: 300 ng/mL URINE PHENCYCLIDINE NONE DETECTED NONE DETECTED [facility] Comment:Cutoff: 25 ng/mL URINE OXYCODONE NONE DETECTED NONE DETECTED [facility] Comment:Cutoff: 300 ng/mL URINE BARBITURATES NONE DETECTED NONE DETECTED [facility] Comment:Cutoff: 200 ng/mL URINE BENZODIAZEPINE NONE DETECTED NONE DETECTED [facility] Comment:Cutoff: 200 ng/mL URINE BUPRENORPHINE NONE DETECTED NONE DETECTED [facility] Comment:Cutoff: 5 ng/mL Fentanyl, urine NONE DETECTED NONE DETECTED [facility] Comment: Cutoff: 5 ng/mL INTERPRETATION FOR TOXICOLOGY PANEL: These results are unconfirmed and should be used for Medical Treatment purposes only. Urine (Urine) 06/05/2025 7:4 6 PM EDT 06/05/2025 8:47 PM EDT Tory Stack MD LAB URINE ORDERABLES Tegan l Result Performing Organization Address [facility] Co de Phone Number [address] [address] * CT ANGIO HEAD WITH AND WITHOUT [...] provided indication for this examination in Epic: *Neuro deficit, acute, stroke suspected; symptoms started [...] * Ethanol, blood (06/05/2025 6:19 PM EDT) Pathologist [facility] ETHANOL <10 <10 mg/dL [facility] Blood 06/05/2025 6:19 PM EDT 06/05/2025 6:29 PM EDT Tory Stack MD LAB BLOOD BKR ORDERABLES Final Result [facility] [address] [place] [address] * C-reactive protein, high sensitivity (06/05/2025 6:19 PM EDT) [facility] CRP, HIGH SENSITIVITY 0.9 0.0 - 5.0 mg/L [facility] Comment: Interpretation: hsCRP level (mg/L) Relative Risk <1.0 Low 1.0 - 3.0 Average >3.0 High Neonates (0-3 weeks): 0.1 - 4.1 mg/L Children (2 months - 15 years): 0.1 - 2.8 mg/L Blood 06/05/2025 6:19 PM EDT 06/05/2025 6:29 PM EDT us Tory Stack MD LAB BLOOD BKR ORDERABLES Final Result [address] [address] * TSH with reflex (06/05/2025 6:19 PM EDT) TSH 2.68 0.27 - 4.20 uIU/mL [facility] Blood 06/05/2025 6:19 PM EDT 06/05/2025 6:29 PM EDT us Tory Stack MD LAB BLOOD BKR ORDERABLES Final Result Performing Organization Address [facility] Co de Phone Number [address] [address] * Sedimentation rate (ESR) (06/05/2025 6:19 PM EDT) ESR 9 0 - 20 mm/h [facility] Blood 06/05/2025 6:19 PM EDT 06/05/2025 6:29 PM EDT us Tory Stack MD LAB BLOOD BKR ORDERABLES Final Result Performing Organization Address [facility] Co de Phone Number [address] [address] * (ABNORMAL) Hemoglobin A1c (06/05/2025 6:19 PM EDT) HEMOGLOBIN A1C 7.2(H) 4.3 - 5.8 % [facility] Blood 06/05/2025 6:19 PM EDT 06/05/2025 6:29 PM EDT Tory Stack MD LAB BLOOD BKR ORDERABLES Final Result Performing Organization Address [facility] Co de Phone Number [address] [address] * (ABNORMAL) Lipid panel (06/05/2025 6:19 PM EDT) HDL 47 mg/dL [facility] Comment: Interpretation <40 mg/dL: Low HDL cholesterol (major risk factor for CHD) Greater than or equal to 60 mg/dL: High HDL cholesterol ( negative risk factor for CHD) HDL - cholesterol is affected by a number of factors, e.g. smoking, excerise, hormones, sex and age. CHOLESTEROL 126 0 - 240 mg/dL [facility] TRIGLYCERIDES 194(H) 30 - 160 mg/dL [facility] LDL 40(L) 50 - 129 mg/dL [facility] Comment: LDL levels in terms of risk for coronary heart disease: <100 mg/dL: Optimal 100-129 mg/dL: Near or above optimal 130-159 mg/dL: Borderline high 160-189 mg/dL: High >190 mg/dL: Very High CARDIAC RISK RATIO 2.7(L) 3.4 - 5.0 C [facility] Blood 06/05/2025 6:19 PM EDT 06/05/2025 6:29 PM EDT us Tory Stack MD LAB BLOOD BKR ORDERABLES Final Result Performing Organization Address [facility] Co de Phone Number [address] [address] * (ABNORMAL) Troponin (06/05/2025 2:13 PM EDT) Only the most recent of2 resultswithin the time period is included. Troponin-T, HS Gen5 28(H) 0 - 14 ng/L [facility] Blood 06/05/2025 2:13 PM EDT 06/05/2025 2:17 PM EDT us Papi Luke PA-C LAB BLOOD BKR ORDERABLES Final Result Performing Organization Address City/[facility]/ZIP Co de Phone Number [facility] [address] [place] [address] * ECG 12-LEAD (06/05/2025 12:52 PM EDT) Ventricular Rate EKG/MIN 105 BPM [facility] Atrial Rate 105 BPM [facility] VT Interval 198 ms [facility] QRS Duration 84 ms [facility] QT Interval 324 ms [facility] QTC Interval 428 ms [facility] R Wave Carter 22 degrees [facility] T Wave Carter 250 degrees [facility] 06/05/2025 12:5 2 PM EDT 06/05/2025 2:30 PM EDT Narrative [facility] - 06/05/2025 2:30 PM EDT Sinus tachycardia Minimal voltage criteria for LVH, may be normal variant ST & T wave abnormality, consider inferolateral ischemia Abnormal ECG No previous ECGs available Confirmed by Yunior Marcus ([id number]) on 06/05/2025 2:30:04 PM us Nila Manuel MD ECG ORDERABLES Final Resul t Performing Organization Address City/[facility] Co de Phone Number [facility] from Last 3 Months Insurance [employer] MED[employer] SUPPLEMENT MEDICARE PART A & B [employer] MEDEX SUPPLEMENT MEDICARE PART A & B [employer] MEDEX SUPPLEMENT MEDICARE PART A & B [employer] MED[employer] SUPPLEMENT MEDICARE PART A & B [employer] MED[employer] SUPPLEMENT MEDICARE PART A & B [employer] MEDEX SUPPLEMENT MEDICARE PART A & B Advance Directives For more information, please contact: [phone] (9AM - 5PM [facility], Thursday-Thursday) Documents on File Type Date Recorded 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 It is not the complete legal health record.[facility]
== END 2025-08-16 15:12 | disposition home or self-care (01) ==
PROVIDERS: PCP Internal Medicine; Visit Provider Physician Assistant
DX: Z98.890 Other specified postprocedural states (principal)
CPT/HCPCS: 99213

== ENCOUNTER → 2025-08-16 14:10 | Outpatient (BNVA) | payer MEDICARE, SELFPAY | PROVIDERS: PCP Internal Medicine; Visit Provider Neurological Surgery | DX: M54.50 Low back pain, unspecified (principal); Z98.890 Other specified postprocedural states | CPT/HCPCS: 99212 ==